=== PATIENT | male | born 1970 | race Caucasian/White ===

== ENCOUNTER 2018-08-06 00:37 | Emergency (ER) | payer BC, OTHER ==
[2018-08-06] MEDS ORDERED: SODIUM CHLORIDE 0.9% 1,000 ML IV STA (00:47)
--- NOTE | 2018-08-06 01:06 | ED ---
General Adult HPI - General Stated complaint: confusion Time Seen by Provider: 08/06/18 00:46 - History of Present Illness Initial comments: Emilio is a 47 yo male brought to the ED today via EMS after being found lying on the ground beside a parking area. EMS reports that they were dispatched for a person initially unresponsive laying next to a parking area. There arrived on scene to find the patient lying in the dirt with snoring respirations. He was given Narcan with no improvement in his mental status. Patient had snoring respirations but with significant wad noise and physical simulation would wake and was awake alert and oriented to person date and location however patient could not recall many events leading up to how he ended up where he was or why he was in the dirt soaking wet. Patient denied drug use. As soon as her stimulator he would again fall asleep and have stroke snoring respirations. Patient's only complaint was that he was cold. Asians arrived at bedside she provided further history. She expresses concern that the patient is been a closet alcoholic and possibly using drugs. She states that when he was employed a lot of money was going missing and she was concerned he was using it to buy drugs however she can never prove this. She states that he has recently lost his job yesterday she found him heavily intoxicated on alcohol and advised him that she wanted him to move out and she wanted a divorce. This evening he was at home with her cousin. Her cousin saw him around 7 PM however when he went back downstairs to check on him at 9 PM he was not home. He had apparently left the residence on a bicycle. He was found outside with no bicycle and no recall of the evening. - Related Data Allergies Allergy/AdvReac Type Severity Reaction Status Date / Time No Known Allergies Allergy Verified 08/06/18 01:15 Review of Systems ROS Statement: Those systems with pertinent positive or pertinent negative responses have been documented in the HPI. ROS Other: All systems not noted in ROS Statement are negative. General Exam - General Exam Comments Initial Comments: Physical Exam GENERAL: Patient is acutely delirious and hypothermic HENT: Normocephalic, Atraumatic. There is very dark wax or dried blood in the left ear canal, normal TMs and no nieto signs no signs of head trauma EYES: PERRL, EOMI PULMONARY: Unlabored respirations. No audible rales rhonchi or wheezing was noted. CARDIOVASCULAR: There is a regular rate and rhythm without any murmurs gallops or rubs. ABDOMEN: Soft and nontender with normal bowel sounds. SKIN: Extremities are moist and very cold to the touch : Normal external genitalia NEUROLOGIC: Sleeping with snoring respirations, wakes to loud noise or physical stimulation Patient is alert and oriented to person date and location however cannot recall events of the evening. Has repetitive questioning and repetitive statements Moving all extremities spontaneously MUSCULOSKELETAL: Normal extremities with adequate strength and full range of motion. No lower extremity swelling or edema. No calf tenderness. PSYCHIATRIC: Acutely delirious Limitations: no limitations Course Vital Signs 08/06/18 08/06/18 08/06/18 00:50 00:59 01:00 Pulse Rate 106 H 113 H Respiratory 16 34 H 33 H Rate Blood Pressure 187/99 O2 Sat by Pulse 98 97 97 Oximetry 08/06/18 08/06/18 08/06/18 01:10 02:00 02:10 Pulse Rate 90 98 95 Respiratory 17 12 13 Rate Blood Pressure 144/118 160/106 113/83 O2 Sat by Pulse 95 97 96 Oximetry 08/06/18 08/06/18 08/06/18 02:20 02:40 02:50 Pulse Rate 91 93 92 Respiratory 15 14 12 Rate Blood Pressure 114/79 104/80 105/90 O2 Sat by Pulse 97 98 98 Oximetry 08/06/18 08/06/18 08/06/18 03:10 03:20 03:40 Pulse Rate 89 86 84 Respiratory 12 12 12 Rate Blood Pressure 106/73 112/78 126/70 O2 Sat by Pulse 98 98 98 Oximetry 08/06/18 08/06/18 08/06/18 04:00 04:10 04:20 Pulse Rate 82 81 112 H Respiratory 14 7 L 24 Rate Blood Pressure 119/75 111/82 134/98 O2 Sat by Pulse 96 98 98 Oximetry 08/06/18 04:40 Pulse Rate 101 H Respiratory 14 Rate Blood Pressure 195/115 O2 Sat by Pulse 97 Oximetry EKG Findings - EKG Comments: EKG Findings:: EKG was obtained at 12:45 AM, rate is 100 rhythm is sinus tachycardia, there is significant baseline artifact secondary to patient shivering. But no obvious ST elevations depressions or evidence of ischemia infarction or arrhythmia. Medical Decision Making - Medical Decision Making The patient was seen and evaluated immediately upon arrival to the emergency department if the patient was noted to have snoring respirations and be difficult to arouse but once he was awake was awake alert oriented Physical exam with no acute findings aside from being hypothermic however given the history and the patient's lack of recall of events leading up to hospitalization a thorough trauma evaluation will be pursued Sent labs were reviewed there is mild elevation of the CPK, mild elevation of lactic acid as well as mild hyperkalemia Imaging with no acute findings Urine drug screen was positive for amphetamines and opiates Results were discussed with the patient and at bedside patient continues to deny any drug use She care was discussed with his primary care physician Dr. Milton Neil. Given the patient has been observed for 4-1/2 hours with no improvement in his mental status he does feel the patient warrants evaluation by neurology and recommends patient be transferred to a facility with neurology. Patient care was discussed with Dr. Hale Kya [facility] who accepts the ER to ER transfer for patient with possible polysubstance intoxication, acute delirium. - Lab Data Result diagrams: 08/06/18 00:51 08/06/18 00:51 Lab Results 08/06/18 08/06/18 08/06/18 Range/Units 00:51 00:51 00:51 WBC 10.5 (3.8-10.6) k/uL RBC 5.67 (4.30-5.90) m/uL Hgb 15.2 (13.0-17.5) gm/dL Hct 47.0 (39.0-53.0) % MCV 83.0 (80.0-100.0) fL MCH 26.8 (25.0-35.0) pg MCHC 32.3 (31.0-37.0) g/dL RDW 16.1 H (11.5-15.5) % Plt Count 148 L (150-450) k/uL Neutrophils % 71 % Lymphocytes % 17 % Monocytes % 6 % Eosinophils % 3 % Basophils % 1 % Neutrophils # 7.5 (1.3-7.7) k/uL Lymphocytes # 1.8 (1.0-4.8) k/uL Monocytes # 0.6 (0-1.0) k/uL Eosinophils # 0.3 (0-0.7) k/uL Basophils # 0.1 (0-0.2) k/uL Anisocytosis Slight PT (9.0-12.0) sec INR (<1.2) APTT (22.0-30.0) sec Sodium 143 (137-145) mmol/L Potassium 5.4 H (3.5-5.1) mmol/L Chloride 109 H (98-107) mmol/L Carbon Dioxide 22 (22-30) mmol/L Anion Gap 12 mmol/L BUN 21 H (9-20) mg/dL Creatinine 0.91 (0.66-1.25) mg/dL Est GFR (CKD-EPI)AfAm >90 (>60 ml/min/1.73 sqM) Est GFR (CKD-EPI)NonAf >90 (>60 ml/min/1.73 sqM) Glucose 124 H (74-99) mg/dL Lactic Ac Sepsis Rflx Plasma Lactic Acid Ricki 2.3 H* (0.7-2.0) mmol/L Calcium 10.0 (8.4-10.2) mg/dL Total Bilirubin 0.9 (0.2-1.3) mg/dL AST 36 (17-59) U/L ALT 31 (21-72) U/L Alkaline Phosphatase 80 (38-126) U/L Creatine Kinase 281 H (55-170) U/L Troponin I (0.000-0.034) ng/mL Total Protein 8.3 H (6.3-8.2) g/dL Albumin 4.8 (3.5-5.0) g/dL Urine Color Urine Appearance (Clear) Urine pH (5.0-8.0) Ur Specific [place] (1.001-1.035) Urine Protein (Negative) Urine Glucose (UA) (Negative) Urine Ketones (Negative) Urine Blood (Negative) Urine Nitrite (Negative) Urine Bilirubin (Negative) Urine Urobilinogen (<2.0) mg/dL Ur Leukocyte Esterase (Negative) Urine RBC (0-5) /hpf Urine WBC (0-5) /hpf Ur Squamous Epith Cells (0-4) /hpf Amorphous Sediment (None) /hpf Urine Bacteria (None) /hpf Hyaline Casts (0-2) /lpf Granular Casts (0) /lpf Urine Mucus (None) /hpf Urine Opiates Screen (NotDetected) Ur Oxycodone Screen (NotDetected) Urine Methadone Screen (NotDetected) Ur Propoxyphene Screen (NotDetected) Ur Barbiturates Screen (NotDetected) U Tricyclic Antidepress (NotDetected) Ur Phencyclidine Scrn (NotDetected) Ur Amphetamines Screen (NotDetected) U Methamphetamines Scrn (NotDetected) U Benzodiazepines Scrn (NotDetected) Urine Cocaine Screen (NotDetected) U Marijuana (THC) Screen (NotDetected) Serum Alcohol <10 mg/dL Blood Type Blood Type Confirm Blood Type Recheck Antibody Screen Spec Expiration Date 08/06/18 08/06/18 08/06/18 Range/Units 00:51 00:51 00:51 WBC (3.8-10.6) k/uL RBC (4.30-5.90) m/uL Hgb (13.0-17.5) gm/dL Hct (39.0-53.0) % MCV (80.0-100.0) fL MCH (25.0-35.0) pg MCHC (31.0-37.0) g/dL RDW (11.5-15.5) % Plt Count (150-450) k/uL Neutrophils % % Lymphocytes % % Monocytes % % Eosinophils % % Basophils % % Neutrophils # (1.3-7.7) k/uL Lymphocytes # (1.0-4.8) k/uL Monocytes # (0-1.0) k/uL Eosinophils # (0-0.7) k/uL Basophils # (0-0.2) k/uL Anisocytosis PT 10.9 (9.0-12.0) sec INR 1.0 (<1.2) APTT 25.5 (22.0-30.0) sec Sodium (137-145) mmol/L Potassium (3.5-5.1) mmol/L Chloride (98-107) mmol/L Carbon Dioxide (22-30) mmol/L Anion Gap mmol/L BUN (9-20) mg/dL Creatinine (0.66-1.25) mg/dL Est GFR (CKD-EPI)AfAm (>60 ml/min/1.73 sqM) Est GFR (CKD-EPI)NonAf (>60 ml/min/1.73 sqM) Glucose (74-99) mg/dL Lactic Ac Sepsis Rflx Plasma Lactic Acid Ricki (0.7-2.0) mmol/L Calcium (8.4-10.2) mg/dL Total Bilirubin (0.2-1.3) mg/dL AST (17-59) U/L ALT (21-72) U/L Alkaline Phosphatase (38-126) U/L Creatine Kinase (55-170) U/L Troponin I <0.012 (0.000-0.034) ng/mL Total Protein (6.3-8.2) g/dL Albumin (3.5-5.0) g/dL Urine Color Urine Appearance (Clear) Urine pH (5.0-8.0) Ur Specific [place] (1.001-1.035) Urine Protein (Negative) Urine Glucose (UA) (Negative) Urine Ketones (Negative) Urine Blood (Negative) Urine Nitrite (Negative) Urine Bilirubin (Negative) Urine Urobilinogen (<2.0) mg/dL Ur Leukocyte Esterase (Negative) Urine RBC (0-5) /hpf Urine WBC (0-5) /hpf Ur Squamous Epith Cells (0-4) /hpf Amorphous Sediment (None) /hpf Urine Bacteria (None) /hpf Hyaline Casts (0-2) /lpf Granular Casts (0) /lpf Urine Mucus (None) /hpf Urine Opiates Screen (NotDetected) Ur Oxycodone Screen (NotDetected) Urine Methadone Screen (NotDetected) Ur Propoxyphene Screen (NotDetected) Ur Barbiturates Screen (NotDetected) U Tricyclic Antidepress (NotDetected) Ur Phencyclidine Scrn (NotDetected) Ur Amphetamines Screen (NotDetected) U Methamphetamines Scrn (NotDetected) U Benzodiazepines Scrn (NotDetected) Urine Cocaine Screen (NotDetected) U Marijuana (THC) Screen (NotDetected) Serum Alcohol mg/dL Blood Type Blood Type Confirm A Positive Blood Type Recheck Antibody Screen Spec Expiration Date 08/06/18 08/06/18 08/06/18 Range/Units 01:31 01:52 03:09 WBC (3.8-10.6) k/uL RBC (4.30-5.90) m/uL Hgb (13.0-17.5) gm/dL Hct (39.0-53.0) % MCV (80.0-100.0) fL MCH (25.0-35.0) pg MCHC (31.0-37.0) g/dL RDW (11.5-15.5) % Plt Count (150-450) k/uL Neutrophils % % Lymphocytes % % Monocytes % % Eosinophils % % Basophils % % Neutrophils # (1.3-7.7) k/uL Lymphocytes # (1.0-4.8) k/uL Monocytes # (0-1.0) k/uL Eosinophils # (0-0.7) k/uL Basophils # (0-0.2) k/uL Anisocytosis PT (9.0-12.0) sec INR (<1.2) APTT (22.0-30.0) sec Sodium (137-145) mmol/L Potassium (3.5-5.1) mmol/L Chloride (98-107) mmol/L Carbon Dioxide (22-30) mmol/L Anion Gap mmol/L BUN (9-20) mg/dL Creatinine (0.66-1.25) mg/dL Est GFR (CKD-EPI)AfAm (>60 ml/min/1.73 sqM) Est GFR (CKD-EPI)NonAf (>60 ml/min/1.73 sqM) Glucose (74-99) mg/dL Lactic Ac Sepsis Rflx Y Plasma Lactic Acid Ricki (0.7-2.0) mmol/L Calcium (8.4-10.2) mg/dL Total Bilirubin (0.2-1.3) mg/dL AST (17-59) U/L ALT (21-72) U/L Alkaline Phosphatase (38-126) U/L Creatine Kinase (55-170) U/L Troponin I (0.000-0.034) ng/mL Total Protein (6.3-8.2) g/dL Albumin (3.5-5.0) g/dL Urine Color Yellow Urine Appearance Clear (Clear) Urine pH 5.5 (5.0-8.0) Ur Specific [place] 1.041 H (1.001-1.035) Urine Protein 2+ H (Negative) Urine Glucose (UA) Negative (Negative) Urine Ketones Negative (Negative) Urine Blood Trace H (Negative) Urine Nitrite Negative (Negative) Urine Bilirubin Negative (Negative) Urine Urobilinogen <2.0 (<2.0) mg/dL Ur Leukocyte Esterase Negative (Negative) Urine RBC 2 (0-5) /hpf Urine WBC 3 (0-5) /hpf Ur Squamous Epith Cells <1 (0-4) /hpf Amorphous Sediment Rare H (None) /hpf Urine Bacteria Rare H (None) /hpf Hyaline Casts 34 H (0-2) /lpf Granular Casts 4 (0) /lpf Urine Mucus Occasional H (None) /hpf Urine Opiates Screen Detected H (NotDetected) Ur Oxycodone Screen Not Detected (NotDetected) Urine Methadone Screen Not Detected (NotDetected) Ur Propoxyphene Screen Not Detected (NotDetected) Ur Barbiturates Screen Not Detected (NotDetected) U Tricyclic Antidepress Not Detected (NotDetected) Ur Phencyclidine Scrn Not Detected (NotDetected) Ur Amphetamines Screen Not Detected (NotDetected) U Methamphetamines Scrn Detected H (NotDetected) U Benzodiazepines Scrn Not Detected (NotDetected) Urine Cocaine Screen Not Detected (NotDetected) U Marijuana (THC) Screen Not Detected (NotDetected) Serum Alcohol mg/dL Blood Type A Positive Blood Type Confirm Blood Type Recheck CABO Indicated Antibody Screen NEGATIVE Spec Expiration Date 08/09/2018 - 235108/06/18 Range/Units 05:21 WBC (3.8-10.6) k/uL RBC (4.30-5.90) m/uL Hgb (13.0-17.5) gm/dL Hct (39.0-53.0) % MCV (80.0-100.0) fL MCH (25.0-35.0) pg MCHC (31.0-37.0) g/dL RDW (11.5-15.5) % Plt Count (150-450) k/uL Neutrophils % % Lymphocytes % % Monocytes % % Eosinophils % % Basophils % % Neutrophils # (1.3-7.7) k/uL Lymphocytes # (1.0-4.8) k/uL Monocytes # (0-1.0) k/uL Eosinophils # (0-0.7) k/uL Basophils # (0-0.2) k/uL Anisocytosis PT (9.0-12.0) sec INR (<1.2) APTT (22.0-30.0) sec Sodium (137-145) mmol/L Potassium (3.5-5.1) mmol/L Chloride (98-107) mmol/L Carbon Dioxide (22-30) mmol/L Anion Gap mmol/L BUN (9-20) mg/dL Creatinine (0.66-1.25) mg/dL Est GFR (CKD-EPI)AfAm (>60 ml/min/1.73 sqM) Est GFR (CKD-EPI)NonAf (>60 ml/min/1.73 sqM) Glucose (74-99) mg/dL Lactic Ac Sepsis Rflx Plasma Lactic Acid Ricki 0.9 (0.7-2.0) mmol/L Calcium (8.4-10.2) mg/dL Total Bilirubin (0.2-1.3) mg/dL AST (17-59) U/L ALT (21-72) U/L Alkaline Phosphatase (38-126) U/L Creatine Kinase (55-170) U/L Troponin I (0.000-0.034) ng/mL Total Protein (6.3-8.2) g/dL Albumin (3.5-5.0) g/dL Urine Color Urine Appearance (Clear) Urine pH (5.0-8.0) Ur Specific [place] (1.001-1.035) Urine Protein (Negative) Urine Glucose (UA) (Negative) Urine Ketones (Negative) Urine Blood (Negative) Urine Nitrite (Negative) Urine Bilirubin (Negative) Urine Urobilinogen (<2.0) mg/dL Ur Leukocyte Esterase (Negative) Urine RBC (0-5) /hpf Urine WBC (0-5) /hpf Ur Squamous Epith Cells (0-4) /hpf Amorphous Sediment (None) /hpf Urine Bacteria (None) /hpf Hyaline Casts (0-2) /lpf Granular Casts (0) /lpf Urine Mucus (None) /hpf Urine Opiates Screen (NotDetected) Ur Oxycodone Screen (NotDetected) Urine Methadone Screen (NotDetected) Ur Propoxyphene Screen (NotDetected) Ur Barbiturates Screen (NotDetected) U Tricyclic Antidepress (NotDetected) Ur Phencyclidine Scrn (NotDetected) Ur Amphetamines Screen (NotDetected) U Methamphetamines Scrn (NotDetected) U Benzodiazepines Scrn (NotDetected) Urine Cocaine Screen (NotDetected) U Marijuana (THC) Screen (NotDetected) Serum Alcohol mg/dL Blood Type Blood Type Confirm Blood Type Recheck Antibody Screen Spec Expiration Date Critical Care Time Critical Care Time: Yes Total Critical Care Time: 30 Disposition Clinical Impression: Delirium, Elevated CPK, Methamphetamine use Disposition: OTHER INSTITUTION NOT DEFINED Condition: Serious Referrals: Milton Arias MD [Primary Care Provider] - 1-2 days - Out of Hospital Transfer - Req. Specs Out of Hospital Transfer - Requested Specifics: Other Emergency Center ([facility]
[2018-08-06 01:07] LABS: Anisocytosis Slight; Basophils # (A) 0.1 k/uL (0-0.2); Basophils % (A) 1 %; Eosinophils # (A) 0.3 k/uL (0-0.7); Eosinophils % (A) 3 %; HGB 15.2 gm/dL (13.0-17.5); Lymphocytes # (A) 1.8 k/uL (1.0-4.8); Lymphocytes % (A) 17 %; MCH 26.8 pg (25.0-35.0); MCHC 32.3 g/dL (31.0-37.0); Mean Platelet Volume 9.5; Monocytes # (A) 0.6 k/uL (0-1.0); Monocytes % (A) 6 %; Neutrophils # (A) 7.5 k/uL (1.3-7.7); Neutrophils % (A) 71 %; Platelet Count 148 k/uL (150-450); RBC 5.67 m/uL (4.30-5.90); RDW 16.1 % (11.5-15.5); WBC 10.5 k/uL (3.8-10.6)
[2018-08-06 01:16] LABS: Partial Thromboplastin Time 25.5 sec (22.0-30.0); Prothrombin Time 10.9 sec (9.0-12.0)
[2018-08-06 01:19] LABS: ALT 31 U/L (21-72); AST 36 U/L (17-59); Albumin 4.8 g/dL (3.5-5.0); Alcohol <10 mg/dL; Alkaline Phosphatase 80 U/L (38-126); Anion Gap 12 mmol/L; Blood Urea Nitrogen 21 mg/dL (9-20); Carbon Dioxide 22 mmol/L (22-30); Chloride 109 mmol/L (98-107); Creatine Kinase 281 U/L (55-170); Glucose 124 mg/dL (74-99); Sodium 143 mmol/L (137-145); Total Bilirubin 0.9 mg/dL (0.2-1.3); Total Protein 8.3 g/dL (6.3-8.2)
[2018-08-06 01:30] LABS: Potassium 5.4 mmol/L (3.5-5.1)
[2018-08-06 03:44] LABS: Amphetamine Screen,Urine Not Detected (NotDetected); Barbiturate Screen,Urine Not Detected (NotDetected); Benzodiazepines Screen,Urine Not Detected (NotDetected); Cocaine Screen,Urine Not Detected (NotDetected); Methadone Screen, Urine Not Detected (NotDetected); Opiate Screen,Urine Detected (NotDetected); Oxycodone Screen, Urine Not Detected (NotDetected); Phencyclidine Screen,Urine Not Detected (NotDetected); Tricyclic Antidepressant,Urine Not Detected (NotDetected); Urn Cannabinoid Scrn Not Detected (NotDetected)
[2018-08-06 03:51] LABS: Amorphous Sediment,Urine Rare /hpf; Appearance,Urine Clear (Clear); Bacteria,Urine Rare /hpf; Bilirubin,Urine Negative (Negative); Blood,Urine Trace (Negative); Color,Urine Yellow; Glucose,Urine (UA) Negative (Negative); Granular Casts,Urine 4 /lpf (0); Hyaline Casts,Urine 34 /lpf (0-2); Ketones,Urine Negative (Negative); Leukocyte Esterase,Urine Negative (Negative); Mucus,Urine Occasional /hpf; Nitrite,Urine Negative (Negative); PH, Urine 5.5 (5.0-8.0); Protein,Urine 2+ (Negative); RBC,Urine 2 /hpf (0-5); Specific Gravity,Urine 1.041 (1.001-1.035); Squamous Epithelial Cell,Urine <1 /hpf (0-4); Urobilinogen,Urine <2.0 mg/dL (<2.0); WBC,Urine 3 /hpf (0-5)
[2018-08-06] MEDS ORDERED: SODIUM CHLORIDE 0.9% 1,000 ML IV ONE (04:28)
[2018-08-06 06:16] VITALS: BP 138/80; PULSE 87; RESP 12
[2018-08-06 06:18] VITALS: TEMP 98.3
--- NOTE | 2018-08-06 07:29 | CT ---
EXAMINATION TYPE: CT brain inder roche con DATE OF EXAM: 08/06/2018 COMPARISON: NONE HISTORY: Unresponsive trauma injury with headache and neck pain. CT DLP: 1539.50 mGycm. Automated Exposure Control for Dose Reduction was Utilized. TECHNIQUE: CT scan of the head and cervical spine are performed without contrast. FINDINGS: There is no acute intracranial hemorrhage, mass effect, or midline shift identified. The ventricles and sulci are within normal limits in size. The globes are intact and the visualized sin uses are clear. The calvarium is intact. Cervical spine is visualized in its entirety from C1 through upper thoracic levels and demonstrates s traightens alignment without evidence of acute fracture or dislocation. Prevertebral soft tissue luz ears within normal limits. The C1-C2 articulation is within normal limits on the coronal images. Ve rtebral body heights are maintained. There is [id number] disc space narrowing and spurring at C 6-C7 level with posterior spur disc complex effacing anterior thecal sac. Thyroid gland is normal in size. Please refer to same day CT CAP port for complete details on the upper lungs IMPRESSION: 1. There is no acute fracture or dislocation evident in the cervical spine. 2. No acute intracranial hemorrhage or midline shift is seen. Preliminary report for study was provided by [employer].
--- NOTE | 2018-08-06 11:48 | CT ---
EXAM: CT Chest With Intravenous Contrast CLINICAL HISTORY: [facility] TECHNIQUE: Axial computed tomography images of the chest with intravenous contrast. CTDI is 13.10 mGy and DLP is 947.5 mGy-cm. This CT exam was performed using one or more of the following dose reduction techniques: automated exposure control, adjustment of the mA and/or kV according to patient size, and/or use of iterative reconstruction technique. COMPARISON: No relevant prior studies available. FINDINGS: Lungs: Unremarkable. No mass. No consolidation. Pleural space: Unremarkable. No pneumothorax. No significant effusion. Heart: Unremarkable. No cardiomegaly. No significant pericardial effusion. Bones/joints: Unremarkable. No acute fracture. No dislocation. Soft tissues: Unremarkable. Vasculature: Unremarkable. No thoracic aortic aneurysm. Lymph nodes: Unremarkable. No enlarged lymph nodes. IMPRESSION: No acute trauma related pathology. EXAM: CT Abdomen and Pelvis With Intravenous Contrast CLINICAL HISTORY: [facility] [place] [facility] TECHNIQUE: Axial computed tomography images of the abdomen and pelvis with intravenous contrast. CTDI is 13.10 mGy and DLP is 947.5 mGy-cm. This CT exam was performed using one or more of the following dose reduction techniques: automated exposure control, adjustment of the mA and/or kV according to patient size, and/or use of iterative reconstruction technique. COMPARISON: No relevant prior studies available. FINDINGS: Lung bases: Unremarkable. No mass. No consolidation. ABDOMEN: Liver: Unremarkable. No mass. Gallbladder and bile ducts: Unremarkable. No calcified stones. No ductal dilation. Pancreas: Unremarkable. No mass. No ductal dilation. Spleen: Splenomegaly. Adrenals: Unremarkable. No mass. Kidneys and ureters: Unremarkable. No solid mass. No hydronephrosis. Stomach and bowel: Unremarkable. No obstruction. No mucosal thickening. PELVIS: Appendix: No findings to suggest acute appendicitis. Bladder: Unremarkable. No mass. Reproductive: Unremarkable as visualized. ABDOMEN and PELVIS: Intraperitoneal space: Unremarkable. No free air. No significant fluid collection. Bones/joints: No acute fracture. No dislocation. Soft tissues: Unremarkable. Vasculature: Unremarkable. No abdominal aortic aneurysm. Lymph nodes: Unremarkable. No enlarged lymph nodes. IMPRESSION: No evidence of solid organ or hollow viscus injury. No other acute or inflammatory disease. No acute or healing fracture or malalignment.
--- NOTE | 2018-08-06 11:49 | XR ---
EXAM: XR Chest, 1 View CLINICAL HISTORY: [place] TECHNIQUE: Frontal view of the chest. COMPARISON: No relevant prior studies available. FINDINGS: Lungs: Unremarkable. No consolidation. Pleural space: Unremarkable. No pneumothorax. Heart: Unremarkable. No cardiomegaly. Mediastinum: Unremarkable. Bones/joints: Unremarkable. IMPRESSION: Normal chest x-ray.
--- NOTE | 2018-08-06 11:49 | XR ---
EXAM: XR Pelvis, 1 or 2 Views CLINICAL HISTORY: [place] TECHNIQUE: Frontal view of the pelvis. COMPARISON: No relevant prior studies available. FINDINGS: Bones/joints: Unremarkable. No acute fracture. No dislocation. Soft tissues: Unremarkable. IMPRESSION: Normal pelvis x-ray.
== END 2018-08-06 06:40 | disposition other institution (70) ==
LOC: EC 00:37
DX: R41.0 Disorientation, unspecified (principal); F15.90 Other stimulant use, unspecified, uncomplicated; E87.5 Hyperkalemia; R79.89 Other specified abnormal findings of blood chemistry; R74.8 Abnormal levels of other serum enzymes
CPT/HCPCS: 99291 ×2; 96360; 96361; 36415; 93005; 86900; 86901; 80053; 82550; 83605; 84484; 85025; 85610; 85730; 86850; 81001; 80306; 80320; 72170; 71045; 72125; 70450; 71260; 74177; Q9967

== ENCOUNTER 2022-04-11 11:20 | Inpatient (IN) | payer OTHER ==
[2022-04-11] MEDS ORDERED: LACTATED RINGERS 250 ML IV ONE (15:10)
[2022-04-11] MEDS ORDERED: PROPOFOL 10 MG/ML 20 ML VIAL IV ONE (15:16)
[2022-04-11] MEDS ORDERED: LIDOCAINE 2% INJ 20 MG/ML (2 ML VIAL) ONE (15:16)
[2022-04-11] MEDS ORDERED: LORazepam 0.5 MG TAB PO PRN (17:56)
[2022-04-11] MEDS ORDERED: METOCLOPRAMIDE 10 MG TAB PO PRN (17:56)
[2022-04-11] MEDS ORDERED: ACETAMINOPHEN TAB 325 MG TAB PO PRN (17:58)
[2022-04-11] MEDS ORDERED: ONDANSETRON 4 MG/2 ML VIAL IVP PRN (17:58)
[2022-04-11] MEDS ORDERED: IPRATROPIUM-ALBUTEROL 3 ML NEB INHALATION PRN (18:25)
--- NOTE | 2022-04-11 19:30 | P.PCN ---
Date of Procedure: 04/11/22 Operative Findings: Transesophageal echocardiogram Performing physician Mustapha Olivas Indication Rule out intracardiac thrombus before cardioversion Complications None Level of sedation The procedure was performed under general anesthesia Procedure description After obtaining informed consent the patient was brought to the recovery. The pulse oximetry and heart rate monitors were attached to the patient. Subsequently the patient was turned into left lateral position. The throat was sprayed using lidocaine. Subsequently the patient was sedated using propofol with BOARDING SPECIALIST in the room. The transesophageal echocardiogram was advanced to the mid esophageal where 2D echocardiogram images as well as color Doppler and pulse-wave Doppler were obtained from multiple angles. The procedure was completed without any complication Findings The left ventricular dimension appeared to be within normal limits. Left ventricular systolic function appeared to be mildly inverted with EF around 40- 45%. The right ventricle appeared to be mildly dilated. The left atrium and right atrium are mildly dilated. The aortic valve appeared to be trileaflet valve with no stenosis or regurgitation. The mitral valve seems to be mildly thickened with moderate MR. Moderate tricuspid regurgitation was seen. No evidence of pericardial effusion. The interatrial septum appeared to be intact with no evidence of shunt noted. The left atrial appendage appeared to be free from any thrombus Conclusion 1. Impaired LV function with EF between 40-45% 2. Normal left atrial appendage with no thrombus 3. Intact interatrial septum with no shunt noted 4. Moderate mitral regurgitation 5. Moderate tricuspid regurgitation 6. No evidence of pericardial effusion
--- NOTE | 2022-04-11 19:32 | P.PCN ---
Date of Procedure: 04/11/22 Operative Findings: Cardioversion report Performing physician Mustapha Donovan Indication Atrial flutter with RVR refractory to medical treatment Complications None Level of sedation The procedure was performed using propofol with NUT GRINDER in the room Procedure description After transesophageal echocardiogram was performed and intracardiac thrombus was ruled out the patient cardioverted from atrial flutter to normal sinus mechanism using 200 J at first attempt Conclusion Successful cardioversion of atrial flutter to normal sinus mechanism using 200 J at first attempt
[2022-04-11] MEDS ORDERED: IPRATROPIUM-ALBUTEROL 3 ML NEB INHALATION SCH (20:00)
[2022-04-11] MEDS ORDERED: IPRATROPIUM 0.5 MG/2.5 ML NEBU INHALATION SCH (20:00)
[2022-04-11] MEDS ORDERED: ALBUTEROL NEBULIZED 2.5 MG/3 ML INHALATION SCH (20:00)
[2022-04-11] MEDS: PREGABALIN 100 MG CAP PO SCH (21:54)
[2022-04-11] MEDS: NICOTINE 21MG/24HR PATCH TRANSDERM SCH (21:54)
[2022-04-11] MEDS: METOPROLOL TARTRATE 50 MG TAB PO SCH (21:54)
[2022-04-11] MEDS: FAMOTIDINE 20 MG TAB PO SCH (21:55)
[2022-04-11] MEDS: MELATONIN 3 MG TABLET PO SCH (21:55)
[2022-04-11] MEDS: BUDESONIDE 1 MG/2 ML NEBU INHALATION SCH (22:23)
[2022-04-11] MEDS: IPRATROPIUM-ALBUTEROL 3 ML NEB INHALATION SCH (22:23)
[2022-04-12 04:58] LABS: Anisocytosis Slight; Basophils # (A) 0.1 k/uL (0-0.2); Basophils % (A) 0 %; Eosinophils # (A) 0.1 k/uL (0-0.7); Eosinophils % (A) 1 %; HCT 43.1 % (39.0-53.0); HGB 12.7 gm/dL (13.0-17.5); Hypochromasia Marked; Lymphocytes % (A) 7 %; MCH 23.7 pg (25.0-35.0); MCHC 29.5 g/dL (31.0-37.0); MCV 80.6 fL (80.0-100.0); Mean Platelet Volume 7.3; Microcytosis Slight; Monocytes # (A) 0.9 k/uL (0-1.0); Monocytes % (A) 7 %; Neutrophils # (A) 11.3 k/uL (1.3-7.7); Neutrophils % (A) 84 %; Platelet Count 111 k/uL (150-450); RBC 5.35 m/uL (4.30-5.90); RDW 17.8 % (11.5-15.5); WBC 13.4 k/uL (3.8-10.6)
[2022-04-12 05:06] LABS: African American GFR (CKD) >90 (>60 ml/min/1.73 sqM); Blood Urea Nitrogen 38 mg/dL (9-20); Calcium 8.1 mg/dL (8.4-10.2); Chloride 85 mmol/L (98-107); Glucose 101 mg/dL (74-99); Non-African American GFR(CKD) 84 (>60 ml/min/1.73 sqM); Potassium 3.6 mmol/L (3.5-5.1); Sodium 132 mmol/L (137-145)
[2022-04-12 05:13] LABS: Anion Gap 4 mmol/L
[2022-04-12 05:36] LABS: Carbon Dioxide 43 mmol/L (22-30)
[2022-04-12] MEDS: PREGABALIN 100 MG CAP PO SCH ×2 (08:39→20:25)
[2022-04-12] MEDS: FAMOTIDINE 20 MG TAB PO SCH ×2 (08:39→20:26)
[2022-04-12] MEDS: NICOTINE 21MG/24HR PATCH TRANSDERM SCH (08:39)
[2022-04-12] MEDS: METOPROLOL TARTRATE 50 MG TAB PO SCH ×3 (08:39→20:26)
[2022-04-12] MEDS: predniSONE 10 MG TAB PO SCH (08:39)
[2022-04-12] MEDS: IPRATROPIUM-ALBUTEROL 3 ML NEB INHALATION SCH ×4 (09:51→21:08)
[2022-04-12] MEDS: BUDESONIDE 1 MG/2 ML NEBU INHALATION SCH ×2 (09:51→21:08)
[2022-04-12] MEDS ORDERED: hydrOXYzine HCL 25 MG TAB PO PRN (10:35)
[2022-04-12] MEDS ORDERED: hydrOXYzine HCL 25 MG TAB PO ONE (10:50)
--- NOTE | 2022-04-12 10:55 | P.HPIM ---
History of Present Illness this is a pleasant 51 years old male who was transferred from [facility] to her hospital for cardioversion. He is a known history of COPD and amphetamine abuse. Presented to the hospital because of shortness of breath and dyspnea. Patient has been followed closely by pulmonary and cardiology service there. Also fringing machine operator evaluated the patient. Patient was on A. fib and RVR refractory to medical treatment including Cardizem drip and therefore he was transferred to our facility and he underwent RICKY showing no intracardiac thrombosis followed by successful cardioversion to sinus rhythm. Today is postoperative day #1 He lying in bed comfortable with no significant chest pain, he is somewhat tachypneic. Patient was found to have COPD and with expiratory wheezing with some hypercapnia. He was placed on BiPAP machine, it is at bedside but patient does not like it. CT angiogram of the chest was negative for pulmonary embolism but showed bilateral pleural effusions and abdominal ascites. He was started on IV Lasix and Diamox. Vitas looks stable EKG: Normal sinus rhythm at 64 Patient was on Eliquis at [facility] Review of Systems Review of systems CONSTITUTIONAL: No fever, no malaise, no fatigue. HEENT: No recent visual problems or hearing problems. Denied any sore throat. CARDIOVASCULAR: No orthopnea, PND, no palpitations, no syncope. PULMONARY: No chest wall tenderness, no hemoptysis. GASTROINTESTINAL: No diarrhea, no nausea, no vomiting, no abdominal pain. Normoactive bowel sounds. NEUROLOGICAL: No headaches, no weakness, no numbness. HEMATOLOGICAL: Denies any bleeding or petechiae. GENITOURINARY: Denies any burning micturition, frequency, or urgency. MUSCULOSKELETAL/RHEUMATOLOGICAL: Denies any joint pain, swelling, or any muscle pain. ENDOCRINE: Denies any polyuria or polydipsia. Past Medical History Past Medical History: Atrial Fibrillation, COPD, Hypertension, Pneumonia History of Any Multi-Drug Resistant Organisms: None Reported Additional Past Surgical History / Comment(s): RICKY 04-11-2022 Smoking Status: Current every day smoker Past Alcohol Use History: None Reported Past Drug Use History: None Reported - Past Family History Mother Family Medical History: Dementia Father Family Medical History: Cancer Medications and Allergies Home Medications Medication Instructions Recorded Confirmed Type Albuterol Nebulized [Ventolin 2.5 mg INHALATION RT-Q6H 04/11/22 04/11/22 History Nebulized] Budesonide [Pulmicort] 1 mg INHALATION RT-BID 04/11/22 04/11/22 History Famotidine [Pepcid] 20 mg PO BID 04/11/22 04/11/22 History Ipratropium Nebulized [Atrovent 0.5 mg INHALATION RT-Q6H 04/11/22 04/11/22 History Nebulized 0.2 MG/ML] Ipratropium-Albuterol Nebulize 3 ml INHALATION RT-Q6H 04/11/22 04/11/22 History [Duoneb 0.5 mg-3 mg/3 ml Soln] LORazepam [Ativan] 0.5 mg PO Q6HR PRN 04/11/22 04/11/22 History Melatonin 6 mg PO HS 04/11/22 04/11/22 History Metoclopramide [Reglan] 10 mg PO Q6H PRN 04/11/22 04/11/22 History Metoprolol Tartrate [Lopressor] 100 mg PO TID 04/11/22 04/11/22 History Nicotine 21Mg/24Hr Patch [Habitrol] 1 patch TRANSDERM DAILY 04/11/22 04/11/22 Hi story Pregabalin [Lyrica] 100 mg PO BID 04/11/22 04/11/22 History acetaZOLAMIDE [Diamox] 250 mg PO BID 04/11/22 04/11/22 History predniSONE [Deltasone] 30 mg PO DAILY 04/11/22 04/11/22 History Allergies Allergy/AdvReac Type Severity Reaction Status Date / Time No Known Allergies Allergy Verified 08/06/18 01:15 Physical Exam Vitals: Vital Signs Temp Pulse Pulse Resp BP Pulse Ox FiO2 04/12/22 10:04 84 04/12/22 09:55 98 04/12/22 09:52 82 04/12/22 08:41 97 F L 89 18 106/69 98 04/12/22 08:00 18 04/12/22 04:00 97.4 F L 79 14 108/71 96 40 04/12/22 03:44 40 04/12/22 01:13 40 04/12/22 00:00 97.9 F 86 16 99/63 96 04/11/22 20:00 97.9 F 86 16 112/68 95 04/11/22 17:18 74 16 101/63 94 L 04/11/22 16:23 73 16 120/81 98 04/11/22 16:10 75 18 115/75 98 04/11/22 16:05 67 18 98/59 95 04/11/22 15:51 64 18 88/59 95 04/11/22 15:04 113 H 18 123/89 100 04/11/22 14:37 100 20 97/73 97 04/11/22 13:30 50 04/11/22 13:29 50 04/11/22 13:20 98.8 F 110 H 20 89/63 97 04/11/22 13:00 98 Intake and Output 04/11/22 04/12/22 04/12/22 22:59 06:59 14:59 Intake Total 118 Output Total 600 Balance 118 -600 Intake: Oral 118 Output: Urine 600 Other: Voiding Method Urinal Urinal Urinal # Voids 2 # Bowel Movements 1 Weight 122 kg 120 kg -GENERAL: The patient is alert and oriented x3, not in any acute distress. Obese HEENT: Pupils are round and equally reacting to light. EOMI. No scleral icterus. No conjunctival pallor. Normocephalic, atraumatic. No pharyngeal erythema. No thyromegaly. CARDIOVASCULAR: S1 and S2 present. No murmurs, rubs, or gallops. -PULMONARY: Chest is clear to auscultation, no wheezing or crackles. Scattered wheezing ABDOMEN: Soft, nontender, nondistended, normoactive bowel sounds. No palpable organomegaly. MUSCULOSKELETAL: No joint swelling or deformity. EXTREMITIES: No cyanosis, clubbing, or pedal edema. NEUROLOGICAL: Gross neurological examination did not reveal any focal deficits. SKIN: No rashes. no petechiae. Results CBC & Chem 7: 04/12/22 04:29 04/12/22 04:29 Labs: Abnormal Lab Results - Last 24 Hours (Table) 04/12/22 04/12/22 Range/Units 04:29 04:29 WBC 13.4 H (3.8-10.6) k/uL Hgb 12.7 L (13.0-17.5) gm/dL MCH 23.7 L (25.0-35.0) pg MCHC 29.5 L (31.0-37.0) g/dL RDW 17.8 H (11.5-15.5) % Plt Count 111 L (150-450) k/uL Neutrophils # 11.3 H (1.3-7.7) k/uL Sodium 132 L (137-145) mmol/L Chloride 85 L (98-107) mmol/L Carbon Dioxide 43 H* (22-30) mmol/L BUN 38 H (9-20) mg/dL Glucose 101 H (74-99) mg/dL Calcium 8.1 L (8.4-10.2) mg/dL Thrombosis Risk Factor Assmnt - Choose All That Apply Each Factor Represents 1 point: Age 41-60 years, Heart failure (<1month), Swollen legs (current) Thrombosis Risk Factor Assessment Total Risk Factor Score: 3 Thrombosis Risk Factor Assessment Level: Moderate Risk Assessment and Plan Assessment: Acute CHF exacerbation with systolic dysfunction with ejection fraction 40-45% Acute refractory atrial fibrillation's with RVR, status post cardioversion Acute hypoxemic hypercapnic respiratory failure Hypervolemic hyponatremia Moderate MR and TR Mild COPD exacerbation Hypertension Amphetamine abuse Plan: Continue with metoprolol 100 mg No anticoagulation Residential Program Worker on the case Patient was on Eliquis at [facility], we'll defer to cardiology went to start anticoagulation continue with prednisone and oxygen. Continue with bronchodilator Pulmonary consult Labs and medication were reviewed.. Continue same treatment. Continue with symptomatic treatment. Resume home medication. Monitor labs and vitals. DVT and GI prophylaxis. Further recommendations as per clinical course of the patient DVT prophylaxis: Defer to cardiology team, was on eliquis GI Prophylaxis: Pepcid PT/OT: Pending Prognosis is guarded discussed with bed side nurse
--- NOTE | 2022-04-12 11:58 | P.CNPUL ---
History of Present Illness Consult date: 04/12/22 Reason for consult: dyspnea, hypoxemia History of present illness: This is a 51-year-old male patient of the transferred from [facility] to be treated for atrial flutter refractory to treatment. The patient underwent cardioversion by cardiology. The patient was admitted to [facility] on 04/02/2022. The patient came in there for worsening shortness of breath and he is known to have history of COPD, substance abuse and hypertension. The patient had a urine drug screen was positive for amphetamines and the patient apparently buys prescription amphetamine on the streets and use them regularly as he states that those medication helped him with the breathing. Initially, the patient was placed on a BiPAP as the patient had an acute hypoxic/hypercapnic respiratory failure. His workup showed a elevated proBNP level, echocardiogram showed left ventricular dysfunction with an ejection fraction of 40-45% and mild aortic regurgitation and the right ventricle systolic pressure of 32 mmHg. The patient's blood work also showed a component of an acute kidney injury. His creatinine was elevated. His LFTs were elevated. He had a CAT scan of the abdomen and pelvis that showed some mild abdominal ascites and pleural effusions. No biliary ductal dilatation the gallbladder was normal. Computed tomography scan of the chest was done in the form of an angiogram and it showed no evidence of any pulmonary embolism. She'll benefit pleural effusion and ascites. The patient is a former drinker any projected approximately 11 years ago. He is known to have history of alcohol abuse in addition to substance abuse/narcotic addiction. During the hospitalization of [facility], the patient was seen by various consultants including cardiology. The patient was found to be persistent atrial flutter and for that reason the patient got transferred to our hospital for further evaluation and treatment. Currently is on oxygen and he is on 6 L nasal cannula with a pulse ox of 98%. He is hemodynamically stable. Most recent blood work showing a white cell count 13.4 with a hemoglobin of 12.7 and a platelet count of 111. BUN is currently at 38 with a creatinine of 1.02 and a sodium level is at 132. Potassium levels at 3.6. A repeat chest x-ray was done and showed atelectatic changes lung base bilaterally. Some subpulmonic effusion on the right lung and the right hemidiaphragm is slightly elevated. No evidence of any airspace disease of pulmonary infiltrates noted. The patient is cur rently on DuoNeb about treatments [id number] on Pulmicort Respules, nicotine patch, prednisone burst taper currently on 30 mg as part of the burst taper. Note that a RICKY was done prior to cardioversion the patient was found to have no evidence of any intracardiac thrombus. There was moderate MR, moderate TR impaired LV function and EF of around 40-45%. He is a chronic THE PATIENT IS CURRENTLY SMOKING HALF TO 1 PACK OF CIGARETTES A DAY. IS A CHRONIC SMOKER. HE CONTINUES TO HAVE SOME MILD EDEMA LOWER EXTREMITIES BILATERALLY. THE PATIENT HAS NOT BEEN DIAGNOSED HAVING OBSTRUCTIVE SLEEP APNEA. ALTHOUGH THE PATIENT HAS THE FEATURES OTHERWISE SAY. HIS BMI 39.1. Review of Systems Constitutional: Reports daytime sleepiness, Reports fatigue, Reports lethargy, Reports weight gain Eyes: denies as per HPI, denies blurred vision, denies bulging eye, denies decreased vision, denies diplopia, denies discharge, denies dry eye, denies irritation, denies itching, denies pain, denies photophobia, denies loss of peripheral vision, denies loss of vision, denies tunnel vision/blind spots Ears: deny: decreased hearing, ear discharge, earache, tinnitus Ears, nose, mouth and throat: Reports as per HPI Breasts: absent: as per HPI, gynecomastia Cardiovascular: Reports decreased exercise tolerance, Reports dyspnea on exertion Respiratory: Reports cough, Reports dyspnea, Reports sleep apnea Gastrointestinal: Reports as per HPI Genitourinary: Reports as per HPI Musculoskeletal: Reports as per HPI Musculoskeletal: bilateral: ankle swelling, absent: ankle pain, ankle stiffness Integumentary: Reports as per HPI Neurological: Reports as per HPI Psychiatric: Reports as per HPI Endocrine: Reports as per HPI Hematologic/Lymphatic: Reports as per HPI Allergic/Immunologic: Reports as per HPI Past Medical History Past Medical History: Atrial Fibrillation, COPD, Hypertension History of Any Multi-Drug Resistant Organisms: None Reported Additional Past Surgical History / Comment(s): RICKY 04-11-2022 Smoking Status: Current every day smoker Past Alcohol Use History: None Reported Past Drug Use History: None Reported - Past Family History Mother Family Medical History: Dementia Father Family Medical History: Cancer Medications and Allergies Home Medications Medication Instructions Recorded Confirmed Type Albuterol Nebulized [Ventolin 2.5 mg INHALATION RT-Q6H 04/11/22 04/11/22 History Nebulized] Budesonide [Pulmicort] 1 mg INHALATION RT-BID 04/11/22 04/11/22 History Famotidine [Pepcid] 20 mg PO BID 04/11/22 04/11/22 History Ipratropium Nebulized [Atrovent 0.5 mg INHALATION RT-Q6H 04/11/22 04/11/22 History Nebulized 0.2 MG/ML] Ipratropium-Albuterol Nebulize 3 ml INHALATION RT-Q6H 04/11/22 04/11/22 History [Duoneb 0.5 mg-3 mg/3 ml Soln] LORazepam [Ativan] 0.5 mg PO Q6HR PRN 04/11/22 04/11/22 History Melatonin 6 mg PO HS 04/11/22 04/11/22 History Metoclopramide [Reglan] 10 mg PO Q6H PRN 04/11/22 04/11/22 History Metoprolol Tartrate [Lopressor] 100 mg PO TID 04/11/22 04/11/22 History Nicotine 21Mg/24Hr Patch [Habitrol] 1 patch TRANSDERM DAILY 04/11/22 04/11/22 History Pregabalin [Lyrica] 100 mg PO BID 04/11/22 04/11/22 History acetaZOLAMIDE [Diamox] 250 mg PO BID 04/11/22 04/11/22 History predniSONE [Deltasone] 30 mg PO DAILY 04/11/22 04/11/22 History Allergies Allergy/AdvReac Type Severity Reaction Status Date / Time No Known Allergies Allergy Verified 08/06/18 01:15 Physical Exam Vitals: Vital Signs Temp Pulse Pulse Resp BP Pulse Ox FiO2 04/12/22 10:04 84 04/12/22 09:55 98 04/12/22 09:52 82 04/12/22 08:41 97 F L 89 18 106/69 98 04/12/22 08:00 18 04/12/22 04:00 97.4 F L 79 14 108/71 96 40 04/12/22 03:44 40 04/12/22 01:13 40 04/12/22 00:00 97.9 F 86 16 99/63 96 04/11/22 20:00 97.9 F 86 16 112/68 95 04/11/22 17:18 74 16 101/63 94 L 04/11/22 16:23 73 16 120/81 98 04/11/22 16:10 75 18 115/75 98 04/11/22 16:05 67 18 98/59 95 04/11/22 15:51 64 18 88/59 95 04/11/22 15:04 113 H 18 123/89 100 04/11/22 14:37 100 20 97/73 97 04/11/22 13:30 50 04/11/22 13:29 50 04/11/22 13:20 98.8 F 110 H 20 89/63 97 04/11/22 13:00 98 Intake and Output 04/11/22 04/12/22 04/12/22 22:59 06:59 14:59 Intake Total 118 Output Total 600 Balance 118 -600 Intake: Oral 118 Output: Urine 600 Other: Voiding Method Urinal Urinal Urinal # Voids 2 # Bowel Movements 1 Weight 122 kg 120 kg -GENERAL: The patient is alert and oriented x3, not in any acute distress. Obese the patient is currently on 2 L of O2 nasal cannula. Morbidly obese, BMI 39.1 Head exam was generally normal. There was no scleral icterus or corneal arcus. Mucous membranes were moist. HEENT: Pupils are round and equally reacting to light. EOMI. No scleral icterus. No conjunctival pallor. Normocephalic, atraumatic. No pharyngeal erythema. No thyromegaly. The patient has significant crowding of the posterior pharynx and the patient is a Mallampati class IV CARDIOVASCULAR: S1 and S2 present. No murmurs, rubs, or gallops. -PULMONARY: Chest is clear to auscultation, no wheezing or crackles. Scattered wheezing ABDOMEN: Soft, nontender, nondistended, normoactive bowel sounds. No palpable organomegaly. MUSCULOSKELETAL: No joint swelling or deformity. EXTREMITIES: No cyanosis, clubbing, or pedal edema. NEUROLOGICAL: Gross neurological examination did not reveal any focal deficits. SKIN: No rashes. no petechiae. Results - Laboratory Findings CBC and BMP: 04/12/22 04:29 04/12/22 04:29 Abnormal lab findings: Abnormal Labs 04/12/22 04/12/22 04:29 04:29 WBC 13.4 H Hgb 12.7 L MCH 23.7 L MCHC 29.5 L RDW 17.8 H Plt Count 111 L Neutrophils # 11.3 H Sodium 132 L Chloride 85 L Carbon Dioxide 43 H* BUN 38 H Glucose 101 H Calcium 8.1 L - Diagnostic Findings Chest x-ray: image reviewed Assessment and Plan Plan: Acute on chronic shortness of breath. The patient has known history of COPD. In addition, the patient had A. fib/flutter with RVR and the patient underwent cardioversion. His overall condition has improved and the patient has been adequately diuresed and his atrial fib/flutter has converted into normal sinus rhythm. A. fib/flutter with RVR, recovered post-cardioversion Obesity with a BMI of 31.1 and typical features of obstructive sleep apnea. Acute COPD exacerbation, improving Acute kidney injury, improving and her renal functions improved Chronic metabolic alkalosis secondary to chronic hypercapnic respiratory failure. Patient will need a sleep study to be done outpatient basis and he would benefit from a CPAP/BiPAP device History of amphetamine abuse History of alcoholism. Plan Titrate FiO2 to maintain a saturation above 90% currently on 2 L Continue Dameon about treatments [id number] Completed course of prednisone burst taper Outpatient PFT and pulmonary function test and repeat study Chest x-ray was noted and the patient has minimal small right-sided pleural effusion Acute kidney injury is recovered Continue metoprolol May possibly need long-term anticoagulation with Eliquis and this will be discussed with cardiology Smoking cessation counseling smoking cessation counseling will continue to follow
--- NOTE | 2022-04-12 12:28 | XR ---
EXAMINATION TYPE: XR chest 1V DATE OF EXAM: 04/12/2022 11:51 AM COMPARISON: Chest radiographs from 08/06/2018 TECHNIQUE: XR chest 1V Frontal view of the chest. CLINICAL INDICATION:Male, 51 years old with history of chf; FINDINGS: Lungs/Pleura: Bibasilar atelectasis. No evidence for pneumothorax pleural effusion or focal consolida tion. Pulmonary vascularity: Unremarkable. Heart/mediastinum: Cardiomediastinal silhouette is unremarkable. Musculoskeletal: No acute osseous pathology. IMPRESSION: Low lung volumes with Basilar atelectasis without definitive acute cardiopulmonary disease/process.
--- NOTE | 2022-04-12 13:31 | P.CRDCN ---
History of Present Illness History of present illness: HISTORY OF PRESENTING ILLNESS Patient is a pleasant 51-year-old male with history of COPD substance abuse hypertension amphetamine use and prior mild cardiomyopathy EF 4045% from November 2020. He presented secondary to shortness breath and was found to have elevated AST 297 ALT 465 bilirubin 3.9 INR 2.3 creatinine 1.4 with low sodium 1:30 and a potassium of 6.1. Patient was started on IV diuretics and added metoprolol for atrial flutter with RVR. Patient was somewhat difficult to control and therefore transferred to [facility] and had RICKY cardioversion 04/11. 04/12 RICKY yesterday showed EF 40-45% with no significant aortic disease and moderate mitral regurgitation and moderate tricuspid regurgitation. He underwent cardioversion and states he has been feeling the best he has in a number of years. Blood work today shows white blood cell count 13.4, hemoglobin 12.7, platelets 111, sodium 132, CO2 43, BUN 38, creatinine 1.0. He remains on 2 L nasal cannula. States he is feeling much better however still mild dyspnea and still 2+ lower extremity edema. REVIEW OF SYSTEMS At the time of my exam: CONSTITUTIONAL: Denies fever or chills. CARDIOVASCULAR: Denies chest pain, +shortness of breath, +orthopnea, no PND or palpitations. RESPIRATORY: Denies cough. GASTROINTESTINAL: Denies abdominal pain, diarrhea, constipation, nausea or vomiting. MUSCULOSKELETAL: Denies myalgias. NEUROLOGIC: Denies numbness, tingling or weakness. ENDOCRINE: Denies fatigue, weight change, polydipsia or polyurina. GENITOURINARY: Denies burning, hematuria or urgency with micturation. HEMATOLOGIC: Denies history of anemia or bleeding. PHYSICAL EXAMINATION Vital signs reviewed. CONSTITUTIONAL: No apparent distress. HEENT: Head is normocephalic. Pupils are equal, round. Sclerae anicteric. Mucous membranes of the mouth are moist. No JVD. No carotid bruit. CHEST EXAMINATION: Lungs are clear to auscultation. No chest wall tenderness is noted on palpation or with deep breathing. HEART EXAMINATION: Regular rate and rhythm. S1, S2 heard. No murmurs, gallops or rub. ABDOMEN: Soft, nontender. Positive bowel sounds. EXTREMITIES: 2+ peripheral pulses, 2+ lower extremity edema and no calf tenderness. NEUROLOGIC EXAMINATION: Patient is awake, alert and oriented x3. ASSESSMENT 1. Acute on chronic systolic heart failure EF 40-45% 2. History of COPD 3. Methamphetamine use 4. Hyponatremia related to volume overload 5. Moderate mitral regurgitation, moderate tricuspid regurgitation 6. Atrial flutter status post RICKY cardioversion 04/11 7. Elevated LFTs and coagulopathy possibly related to hepatic congestion 8. Acute kidney injury improved PLAN Patient still does have significant amount of volume up and we will continue with diuretics. He is doing much better after RICKY and cardioversion. Continue diuresis and optimize heart failure regimen as able. Methamphetamine discontinuation. Further recs to follow. Past Medical History Past Medical History: Atrial Fibrillation, COPD, Hypertension History of Any Multi-Drug Resistant Organisms: None Reported Additional Past Surgical History / Comment(s): RICKY 04-11-2022 Smoking Status: Current every day smoker Past Alcohol Use History: None Reported Past Drug Use History: None Reported - Past Family History Mother Family Medical History: Dementia Father Family Medical History: Cancer Medications and Allergies Home Medications Medication Instructions Recorded Confirmed Type Albuterol Nebulized [Ventolin 2.5 mg INHALATION RT-Q6H 04/11/22 04/11/22 History Nebulized] Budesonide [Pulmicort] 1 mg INHALATION RT-BID 04/11/22 04/11/22 History Famotidine [Pepcid] 20 mg PO BID 04/11/22 04/11/22 History Ipratropium Nebulized [Atrovent 0.5 mg INHALATION RT-Q6H 04/11/22 04/11/22 History Nebulized 0.2 MG/ML] Ipratropium-Albuterol Nebulize 3 ml INHALATION RT-Q6H 04/11/22 04/11/22 History [Duoneb 0.5 mg-3 mg/3 ml Soln] LORazepam [Ativan] 0.5 mg PO Q6HR PRN 04/11/22 04/11/22 History Melatonin 6 mg PO HS 04/11/22 04/11/22 History Metoclopramide [Reglan] 10 mg PO Q6H PRN 04/11/22 04/11/22 History Metoprolol Tartrate [Lopressor] 100 mg PO TID 04/11/22 04/11/22 History Nicotine 21Mg/24Hr Patch [Habitrol] 1 patch TRANSDERM DAILY 04/11/22 04/11/22 History Pregabalin [Lyrica] 100 mg PO BID 04/11/22 04/11/22 History acetaZOLAMIDE [Diamox] 250 mg PO BID 04/11/22 04/11/22 History predniSONE [Deltasone] 30 mg PO DAILY 04/11/22 04/11/22 History Allergies Allergy/AdvReac Type Severity Reaction Status Date / Time No Known Allergies Allergy Verified 08/06/18 01:15 Physical Exam Vitals: Vital Signs Temp Pulse Pulse Resp BP Pulse Ox FiO2 04/12/22 12:39 97.8 F 87 18 116/64 98 04/12/22 12:10 94 L 04/12/22 12:08 87 04/12/22 10:04 84 04/12/22 09:55 98 04/12/22 09:52 82 04/12/22 08:41 97 F L 89 18 106/69 98 04/12/22 08:00 18 04/12/22 04:00 97.4 F L 79 14 108/71 96 40 04/12/22 03:44 40 04/12/22 01:13 40 04/12/22 00:00 97.9 F 86 16 99/63 96 04/11/22 20:00 97.9 F 86 16 112/68 95 04/11/22 17:18 74 16 101/63 94 L 04/11/22 16:23 73 16 120/81 98 04/11/22 16:10 75 18 115/75 98 04/11/22 16:05 67 18 98/59 95 04/11/22 15:51 64 18 88/59 95 04/11/22 15:04 113 H 18 123/89 100 04/11/22 14:37 100 20 97/73 97 04/11/22 13:30 50 04/11/22 13:29 50 Intake and Output 04/11/22 04/12/22 04/12/22 22:59 06:59 14:59 Intake Total 118 Output Total 600 Balance 118 -600 Intake: Oral 118 Output: Urine 600 Other: Voiding Method Urinal Urinal Urinal # Voids 2 # Bowel Movements 1 Weight 122 kg 120 kg Results 04/12/22 04:29 04/12/22 04:29 CBC 04/12/22 Range/Units 04:29 WBC 13.4 H (3.8-10.6) k/uL RBC 5.35 (4.30-5.90) m/uL Hgb 12.7 L (13.0-17.5) gm/dL Hct 43.1 (39.0-53.0) % Plt Count 111 L (150-450) k/uL Comprehensive Metabolic Panel 04/12/22 Range/Units 04:29 Sodium 132 L (137-145) mmol/L Potassium 3.6 (3.5-5.1) mmol/L Chloride 85 L (98-107) mmol/L Carbon Dioxide 43 H* (22-30) mmol/L BUN 38 H (9-20) mg/dL Creatinine 1.02 (0.66-1.25) mg/dL Glucose 101 H (74-99) mg/dL Calcium 8.1 L (8.4-10.2) mg/dL Current Medications Generic Name Dose Route Start Last Admin Trade Name Freq PRN Reason Stop Dose Admin Acetaminophen 650 mg 04/11/22 17:58 Acetaminophen Tab 325 Mg Tab PO Q6HR PRN Fever and/ or Mild Pain Albuterol/Ipratropium 3 ml 04/11/22 20:00 04/12/22 12:07 Ipratropium-Albuterol 3 Ml Neb INHALATION 3 ml RT-QID ANÍBAL Administration Albuterol/Ipratropium 3 ml 04/11/22 18:25 Ipratropium-Albuterol 3 Ml Neb INHALATION RT-Q2H PRN Shortness Of Breath Or Wheezing Apixaban 5 mg 04/12/22 21:00 Apixaban 5 Mg Tab PO BID [facility] Protocol Budesonide 1 mg 04/11/22 20:00 04/12/22 09:51 Budesonide 1 Mg/2 Ml Nebu INHALATION 1 mg RT-BID ANÍBAL Administration Famotidine 20 mg 04/11/22 21:00 04/12/22 08:39 Famotidine 20 Mg Tab PO 20 mg BID ANÍBAL Administration Hydroxyzine HCl 25 mg 04/12/22 10:35 Hydroxyzine Hcl 25 Mg Tab PO TID PRN Anxiety Lorazepam 0.5 mg 04/11/22 17:56 04/11/22 21:55 Lorazepam 0.5 Mg Tab PO 0.5 mg Q6HR PRN Administration Agitation Melatonin 6 mg 04/11/22 21:00 04/11/22 21:55 Melatonin 3 Mg Tablet PO 6 mg HS ANÍBAL Administration Metoclopramide HCl 10 mg 04/11/22 17:56 Metoclopramide 10 Mg Tab PO Q6H PRN Nausea Metoprolol Tartrate 100 mg 04/11/22 22:00 04/12/22 08:39 Metoprolol Tartrate 50 Mg Tab PO 100 mg TID ANÍBAL Administration Nicotine 1 patch 04/11/22 18:00 04/12/22 08:39 Nicotine 21mg/24hr Patch TRANSDERM 1 patch DAILY ANÍBAL Administration Ondansetron HCl 4 mg 04/11/22 17:58 Ondansetron 4 Mg/2 Ml Vial IVP Q6HR PRN Nausea And Vomiting Prednisone 30 mg 04/12/22 09:00 04/12/22 08:39 Prednisone 10 Mg Tab PO 30 mg DAILY ANÍBAL Administration Pregabalin 100 mg 04/11/22 21:00 04/12/22 08:39 Pregabalin 100 Mg Cap PO 100 mg BID ANÍBAL Administration Intake and Output 04/11/22 04/12/22 04/12/22 22:59 06:59 14:59 Intake Total 118 Output Total 600 Balance 118 -600 Intake: Oral 118 Output: Urine 600 Other: Voiding Method Urinal Urinal Urinal # Voids 2 # Bowel Movements 1 Weight 122 kg 120 kg 04/12/22 04:29 04/12/22 04:29
[2022-04-12] MEDS: FUROSEMIDE 10 MG/ML 4 ML VIAL IV SCH ×2 (14:57→20:28)
[2022-04-12] MEDS: MELATONIN 3 MG TABLET PO SCH (20:25)
[2022-04-12] MEDS: APIXABAN 5 MG TAB PO SCH (20:25)
[2022-04-13] MEDS: BUDESONIDE 1 MG/2 ML NEBU INHALATION SCH ×2 (07:29→20:09)
[2022-04-13] MEDS: IPRATROPIUM-ALBUTEROL 3 ML NEB INHALATION SCH ×4 (07:29→20:10)
[2022-04-13 08:41] LABS: African American GFR (CKD) >90 (>60 ml/min/1.73 sqM); Blood Urea Nitrogen 35 mg/dL (9-20); Chloride 84 mmol/L (98-107); Glucose 106 mg/dL (74-99); Magnesium 2.2 mg/dL (1.6-2.3); Non-African American GFR(CKD) 84 (>60 ml/min/1.73 sqM); Potassium 3.5 mmol/L (3.5-5.1); Sodium 133 mmol/L (137-145)
[2022-04-13 08:48] LABS: Anion Gap 7 mmol/L
[2022-04-13 08:52] LABS: Carbon Dioxide 42 mmol/L (22-30)
[2022-04-13] MEDS: FAMOTIDINE 20 MG TAB PO SCH ×2 (09:06→20:08)
[2022-04-13] MEDS: METOPROLOL TARTRATE 50 MG TAB PO SCH ×3 (09:06→20:08)
[2022-04-13] MEDS: PREGABALIN 100 MG CAP PO SCH ×2 (09:06→20:08)
[2022-04-13] MEDS: APIXABAN 5 MG TAB PO SCH ×2 (09:06→20:08)
[2022-04-13] MEDS: FUROSEMIDE 10 MG/ML 4 ML VIAL IV SCH ×2 (09:06→20:08)
[2022-04-13] MEDS: predniSONE 10 MG TAB PO SCH (09:06)
[2022-04-13] MEDS: NICOTINE 21MG/24HR PATCH TRANSDERM SCH (09:07)
--- NOTE | 2022-04-13 13:47 | P.PN ---
Subjective HISTORY OF PRESENTING ILLNESS Patient is a pleasant 51-year-old male with history of COPD substance abuse hypertension amphetamine use and prior mild cardiomyopathy EF 4045% from November 2020. He presented secondary to shortness breath and was found to have elevated AST 297 ALT 465 bilirubin 3.9 INR 2.3 creatinine 1.4 with low sodium 1:30 and a potassium of 6.1. Patient was started on IV diuretics and added metoprolol for atrial flutter with RVR. Patient was somewhat difficult to control and therefore transferred to [facility] and had RICKY cardioversion 04/11. 04/12 RICKY yesterday showed EF 40-45% with no significant aortic disease and moderate mitral regurgitation and moderate tricuspid regurgitation. He underwent cardioversion and states he has been feeling the best he has in a number of years. Blood work today shows white blood cell count 13.4, hemoglobin 12.7, platelets 111, sodium 132, CO2 43, BUN 38, creatinine 1.0. He remains on 2 L nasal cannula. States he is feeling much better however still mild dyspnea and still 2+ lower extremity edema. 04/13 Patient seen and examined. Patient states his been having good urine output with Lasix. Some improvement lower extremity edema. Creatinine has remained stable at 1.0 PHYSICAL EXAMINATION Vital signs reviewed. CONSTITUTIONAL: No apparent distress. HEENT: Head is normocephalic. Pupils are equal, round. Sclerae anicteric. Mucous membranes of the mouth are moist. No JVD. No carotid bruit. CHEST EXAMINATION: Lungs are clear to auscultation. No chest wall tenderness is noted on palpation or with deep breathing. HEART EXAMINATION: Regular rate and rhythm. S1, S2 heard. No murmurs, gallops or rub. ABDOMEN: Soft, nontender. Positive bowel sounds. EXTREMITIES: 2+ peripheral pulses, 2+ lower extremity edema and no calf tenderness. NEUROLOGIC EXAMINATION: Patient is awake, alert and oriented x3. ASSESSMENT 1. Acute on chronic systolic heart failure EF 40-45% 2. History of COPD 3. Methamphetamine use 4. Hyponatremia related to volume overload 5. Moderate mitral regurgitation, moderate tricuspid regurgitation 6. Atrial flutter status post RICKY cardioversion 04/11 7. Elevated LFTs and coagulopathy possibly related to hepatic congestion 8. Acute kidney injury improved PLAN Patient still does have significant amount of volume up and we will continue with diuretics. He is doing much better after RICKY and cardioversion. Continue diuresis and optimize heart failure regimen as able. Still has significant edema and continue with IV diuresis. Add diamox for contraction alkalosis. Methamphetamine discontinuation. Further recs to follow. Objective - Vital Signs Vital signs: Vital Signs Temp 98.4 F 04/13/22 12:10 Pulse 85 04/13/22 12:10 Resp 18 04/13/22 12:10 BP 108/59 04/13/22 12:10 Pulse Ox 90 L 04/13/22 12:10 FiO2 40 04/13/22 08:20 Intake & Output 04/12/22 04/13/22 04/13/22 18:59 06:59 18:59 Intake Total 1876 Output Total 1950 720 950 Balance -74 -720 -950 Weight 120.9 kg Intake: Oral 1876 Output: Urine 1950 720 950 Other: Voiding Method Urinal Urinal # Voids 2 # Bowel Movements 1 - Labs CBC & Chem 7: 04/12/22 04:29 04/13/22 07:39 Labs: Abnormal Lab Results - Last 24 Hours (Table) 04/13/22 Range/Units 07:39 Sodium 133 L (137-145) mmol/L Chloride 84 L (98-107) mmol/L Carbon Dioxide 42 H* (22-30) mmol/L BUN 35 H (9-20) mg/dL Glucose 106 H (74-99) mg/dL Calcium 8.0 L (8.4-10.2) mg/dL
[2022-04-13] MEDS: acetaZOLAMIDE 250 MG TAB PO SCH ×2 (14:20→20:07)
--- NOTE | 2022-04-13 15:26 | P.PN ---
Subjective Progress Note Date: 04/13/22 This is a 51-year-old male patient of the transferred from [facility] to be treated for atrial flutter refractory to treatment. The patient underwent cardioversion by cardiology. The patient was admitted to [facility] on 04/02/2022. The patient came in there for worsening shortness of breath and he is known to have history of COPD, substance abuse and hypertension. The patient had a urine drug screen was positive for amphetamines and the patient apparently buys prescription amphetamine on the streets and use them regularly as he states that those medication helped him with the breathing. Initially, the patient was placed on a BiPAP as the patient had an acute hy poxic/hypercapnic respiratory failure. His workup showed a elevated proBNP level, echocardiogram showed left ventricular dysfunction with an ejection fraction of 40-45% and mild aortic regurgitation and the right ventricle systolic pressure of 32 mmHg. The patient's blood work also showed a component of an acute kidney injury. His creatinine was elevated. His LFTs were elevated. He had a CAT scan of the abdomen and pelvis that showed some mild abdominal ascites and pleural effusions. No biliary ductal dilatation the gallbladder was normal. Computed tomography scan of the chest was done in the form of an angiogram and it showed no evidence of any pulmonary embolism. She'll benefit pleural effusion and ascites. The patient is a former drinker any projected approximately 11 years ago. He is known to have history of alcohol abuse in addition to substance abuse/narcotic addiction. During the hospitalization of [facility], the patient was seen by various consultants including cardiology. The patient was found to be persistent atrial flutter and for that reason the patient got transferred to our hospital for further evaluation and treatment. Currently is on oxygen and he is on 6 L nasal cannula with a pulse ox of 98%. He is hemodynamically stable. Most recent blood work showing a white cell count 13.4 with a hemoglobin of 12.7 and a platelet count of 111. BUN is currently at 38 with a creatinine of 1.02 and a sodium level is at 132. Potassium levels at 3.6. A repeat chest x-ray was done and showed atelectatic changes lung base bilaterally. Some subpulmonic effusion on the right lung and the right hemidiaphragm is slightly elevated. No evidence of any airspace disease of pulmonary infiltrates noted. The patient is currently on DuoNeb about treatments [id number] on Pulmicort Respules, nicotine patch, prednisone burst taper currently on 30 mg as part of the burst taper. Note that a RICKY was done prior to cardioversion the patient was found to have no evidence of any intracardiac thrombus. There was moderate MR, moderate TR impaired LV function and EF of around 40-45%. He is a chronic THE PATIENT IS CURRENTLY SMOKING HALF TO 1 PACK OF CIGARETTES A DAY. IS A CHRONIC SMOKER. HE CONTINUES TO HAVE SOME MILD EDEMA LOWER EXTREMITIES BILATERALLY. THE PATIENT HAS NOT BEEN DIAGNOSED HAVING OBSTRUCTIVE SLEEP APNEA. ALTHOUGH THE PATIENT HAS THE FEATURES OTHERWISE SAY. HIS BMI 39.1. On today's evaluation of 04/13/2022, the patient is doing well. The patient is being diuresed. The patient is also in negative fluid balance as the patient is receiving 40 mg of IV Lasix every 12 hours. The patient presented to us with shortness of breath. He is known to have COPD. He also had atrial fibrillation/flutter underwent cardioversion. Since then, there has been significant improvement in his respiratory status an appointment with the patient is feeling that he is back to his baseline. He is currently on prednisone burst taper and is currently on 30 minutes by mouth daily. Blood work from today shows a BUN of 35 and a creatinine of 1.02. Sodium level is at 133 with a potassium level of 3.5. The patient remains on Diamox to counteract metabolic alkalosis. He is receiving Diamox to 50 mg by mouth twice a day. He is on long-term anticoagulation with Eliquis 5 mg by mouth twice a day. He will need an outpatient evaluation for sleep apnea. Is a chronic smoker. Lower extremity edema is improving and the patient is currently on Lasix 40 mg IV every 12 hours. Objective - Vital Signs Vital signs: Vital Signs Temp 98.4 F 04/13/22 12:10 Pulse 85 04/13/22 12:10 Resp 18 04/13/22 12:10 BP 108/59 04/13/22 12:10 Pulse Ox 90 L 04/13/22 12:10 FiO2 40 04/13/22 08:20 Intake & Output 04/12/22 04/13/22 04/13/22 18:59 06:59 18:59 Intake Total 1876 Output Total 1950 720 950 Balance -74 -720 -950 Weight 120.9 kg Intake: Oral 1876 Output: Urine 1950 720 950 Other: Voiding Method Urinal Urinal # Voids 2 # Bowel Movements 1 - Exam -GENERAL: The patient is alert and oriented x3, not in any acute distress. Obese the patient is currently on 2 L of O2 nasal cannula. Morbidly obese, BMI 39.1 Head exam was generally normal. There was no scleral icterus or corneal arcus. Mucous membranes were moist. HEENT: Pupils are round and equally reacting to light. EOMI. No scleral icterus. No conjunctival pallor. Normocephalic, atraumatic. No pharyngeal erythema. No thyromegaly. The patient has significant crowding of the posterior pharynx and the patient is a Mallampati class IV CARDIOVASCULAR: S1 and S2 present. No murmurs, rubs, or gallops. -PULMONARY: Chest is clear to auscultation, no wheezing or crackles. Scattered wheezing ABDOMEN: Soft, nontender, nondistended, normoactive bowel sounds. No palpable organomegaly. MUSCULOSKELETAL: No joint swelling or deformity. EXTREMITIES: No cyanosis, clubbing, or pedal edema. NEUROLOGICAL: Gross neurological examination did not reveal any focal deficits. SKIN: No rashes. no petechiae. - Labs CBC & Chem 7: 04/12/22 04:29 04/13/22 07:39 Labs: Abnormal Lab Results - Last 24 Hours (Table) 04/13/22 Range/Units 07:39 Sodium 133 L (137-145) mmol/L Chloride 84 L (98-107) mmol/L Carbon Dioxide 42 H* (22-30) mmol/L BUN 35 H (9-20) mg/dL Glucose 106 H (74-99) mg/dL Calcium 8.0 L (8.4-10.2) mg/dL Assessment and Plan Plan: Acute on chronic shortness of breath. The patient has known history of COPD. In addition, the patient had A. fib/flutter with RVR and the patient underwent cardioversion. His overall condition has improved and the patient has been adequately diuresed and his atrial fib/flutter has converted into normal sinus rhythm. The patient continued to diabetes with IV Lasix. There is improvement in volume status. He is already feeling much better after the RICKY cardioversion. Diamox was added to counteract metabolic alkalosis. A. fib/flutter with RVR, recovered post-cardioversion, remains on IV coagulation with Obesity with a BMI of 31.1 and typical features of obstructive sleep apnea. Acute COPD exacerbation, improving Acute kidney injury, improving and her renal functions improved Chronic metabolic alkalosis secondary to chronic hypercapnic respiratory failure. Patient will need a sleep study to be done outpatient basis and he would benefit from a CPAP/BiPAP device History of amphetamine abuse History of alcoholism. Plan Titrate FiO2 to maintain a saturation above 90% currently on 2 L Continue Dameon about treatments [id number] Completed course of prednisone burst taper Continue diuretics with IV Lasix Continue Diamox Outpatient PFT and pulmonary function test and repeat study Chest x-ray was noted and the patient has minimal small right-sided pleural effusion Acute kidney injury is recovered Continue metoprolol anticoagulation with Eliquis and this will be discussed with cardiology Smoking cessation counseling smoking cessation counseling will continue to follow
[2022-04-13] MEDS: MELATONIN 3 MG TABLET PO SCH (20:08)
--- NOTE | 2022-04-13 22:29 | P.PN ---
Subjective this is a pleasant 51 years old male who was transferred from [facility] to her hospital for cardioversion. He is a known history of COPD and amphetamine abuse. Presented to the hospital because of shortness of breath and dyspnea. Patient has been followed closely by pulmonary and cardiology service there. Also [employer] evaluated the patient. Patient was on A. fib and RVR refractory to medical treatment including Cardizem drip and therefore he was transferred to our facility and he underwent RICKY showing no intracardiac thrombosis followed by successful cardioversion to sinus rhythm. Today is postoperative day #1 He lying in bed comfortable with no significant chest pain, he is somewhat tachypneic. Patient was found to have COPD and with expiratory wheezing with some hypercapnia. He was placed on BiPAP machine, it is at bedside but patient does not like it. CT angiogram of the chest was negative for pulmonary embolism but showed bilateral pleural effusions and abdominal ascites. He was started on IV Lasix and Diamox. Vitas looks stable EKG: Normal sinus rhythm at 64 Patient was on Eliquis at [facility] 04/13/2012 Patient states that he never felt so good for a long time, this is after the cardioversion, he still in sinus rhythm. With no much dyspnea at rest, and oxygen requirements going down to 2-3 L/m Continue on IV Lasix, Eliquis is added for his A. fib. Continue with metoprolol. Pulmonary the case and continued on the prednisone and need pulmonary function tests as an outpatient Discuss plan with the staff Objective - Vital Signs Vital signs: Vital Signs Temp 99.4 F 04/13/22 16:05 Pulse 78 04/13/22 16:46 Resp 18 04/13/22 16:05 BP 122/71 04/13/22 16:05 Pulse Ox 94 L 04/13/22 16:05 FiO2 40 04/13/22 08:20 Intake & Output 04/12/22 04/13/22 04/13/22 18:59 06:59 18:59 Intake Total 187 1618 Output Total 4704 768 8369 Balance -74 720 -232 Weight 120.9 kg Intake: Oral 1875 1618 Output: Urine 7273 [id number] 9279 Other: Voiding Method Urinal Urinal # Voids 2 # Bowel Movements 1 - Labs CBC & Chem 7: 04/12/22 04:29 04/13/22 07:39 Labs: Abnormal Lab Results - Last 24 Hours (Table) 04/13/22 Range/Units 07:39 Sodium 133 L (137-145) mmol/L Chloride 84 L (98-107) mmol/L Carbon Dioxide 42 H* (22-30) mmol/L BUN 35 H (9-20) mg/dL Glucose 106 H (74-99) mg/dL Calcium 8.0 L (8.4-10.2) mg/dL Assessment and Plan Assessment: Acute CHF exacerbation with systolic dysfunction with ejection fraction 40-45% Acute refractory atrial fibrillation's with RVR, status post cardioversion Acute hypoxemic hypercapnic respiratory failure Hypervolemic hyponatremia Moderate MR and TR Mild COPD exacerbation Hypertension Amphetamine abuse Plan: Continue with metoprolol 100 mg No anticoagulation Tube Skiver on the case Patient was on Eliquis at [facility], we'll defer to cardiology went to start anticoagulation continue with prednisone and oxygen. Continue with bronchodilator Pulmonary consult Labs and medication were reviewed.. Continue same treatment. Continue with symptomatic treatment. Resume home medication. Monitor labs and vitals. DVT and GI prophylaxis. Further recommendations as per clinical course of the patient DVT prophylaxis: Defer to cardiology team, was on eliquis GI Prophylaxis: Pepcid PT/OT: Pending Prognosis is guarded discussed with bed side nurse
[2022-04-14] MEDS: BUDESONIDE 1 MG/2 ML NEBU INHALATION SCH ×2 (08:35→20:02)
[2022-04-14] MEDS: IPRATROPIUM-ALBUTEROL 3 ML NEB INHALATION SCH ×4 (08:35→20:02)
[2022-04-14] MEDS: NICOTINE 21MG/24HR PATCH TRANSDERM SCH (09:26)
[2022-04-14] MEDS: acetaZOLAMIDE 250 MG TAB PO SCH (09:27)
[2022-04-14] MEDS: APIXABAN 5 MG TAB PO SCH ×2 (09:27→19:51)
[2022-04-14] MEDS: FUROSEMIDE 10 MG/ML 4 ML VIAL IV SCH ×2 (09:27→19:52)
[2022-04-14] MEDS: PREGABALIN 100 MG CAP PO SCH ×2 (09:27→19:51)
[2022-04-14] MEDS: METOPROLOL TARTRATE 50 MG TAB PO SCH ×3 (09:27→19:52)
[2022-04-14] MEDS: predniSONE 10 MG TAB PO SCH (09:27)
[2022-04-14] MEDS: FAMOTIDINE 20 MG TAB PO SCH ×2 (09:27→19:51)
--- NOTE | 2022-04-14 10:36 | P.PN ---
Subjective this is a pleasant 51 years old male who was transferred from [facility] to her hospital for cardioversion. He is a known history of COPD and amphetamine abuse. Presented to the hospital because of shortness of breath and dyspnea. Patient has been followed closely by pulmonary and cardiology service there. Also shipping lead person evaluated the patient. Patient was on A. fib and RVR refractory to medical treatment including Cardizem drip and therefore he was transferred to our facility and he underwent RICKY showing no intracardiac thrombosis followed by successful cardioversion to sinus rhythm. Today is postoperative day #1 He lying in bed comfortable with no significant chest pain, he is somewhat tachypneic. Patient was found to have COPD and with expiratory wheezing with some hypercapnia. He was placed on BiPAP machine, it is at bedside but patient does not like it. CT angiogram of the chest was negative for pulmonary embolism but showed bilateral pleural effusions and abdominal ascites. He was started on IV Lasix and Diamox. Vitas looks stable EKG: Normal sinus rhythm at 64 Patient was on Eliquis at [facility] 04/13/2012 Patient states that he never felt so good for a long time, this is after the cardioversion, he still in sinus rhythm. With no much dyspnea at rest, and oxygen requirements going down to 2-3 L/m Continue on IV Lasix, Eliquis is added for his A. fib. Continue with metoprolol. Pulmonary the case and continued on the prednisone and need pulmonary function tests as an outpatient Discuss plan with the staff 04/14/2022 Patient little more lethargic today, he was on BiPAP this morning. No chest pain no another new complaint BMP from today is pending Patient still has some leg swelling and basilic up the patient and his still require assistance with a breathing. Continue with IV Lasix with a close monitoring Eliquis 5 mg addedAs well. pulmonary team on the case recommended to continue with the prednisone for now Objective - Vital Signs Vital signs: Vital Signs Temp 97.9 F 04/13/22 20:00 Pulse 76 04/14/22 08:49 Resp 17 04/14/22 04:00 BP 118/65 04/14/22 04:00 Pulse Ox 100 04/14/22 04:00 FiO2 40 04/14/22 08:35 Intake & Output 04/13/22 04/14/22 04/14/22 18:59 06:59 18:59 Intake Total 1618 480 118 Output Total 1850 300 Balance -232 180 118 Weight 123.2 kg Intake: Oral 1618 480 118 Output: Urine 1850 300 Other: Voiding Method Urinal - Exam GENERAL: The patient is alert and oriented x3, not in any acute distress. obese HEENT: Pupils are round and equally reacting to light. EOMI. No scleral icterus. No conjunctival pallor. Normocephalic, atraumatic. No pharyngeal erythema. No th yromegaly. CARDIOVASCULAR: S1 and S2 present. No murmurs, rubs, or gallops. PULMONARY: Chest is clear to auscultation, no wheezing or crackles. ABDOMEN: Soft, nontender, nondistended, normoactive bowel so,unds. No palpable organomegaly. MUSCULOSKELETAL: No joint swelling or deformity. -EXTREMITIES: No cyanosis, clubbing, or pedal edema. bilateral leg swelling NEUROLOGICAL: Gross neurological examination did not reveal any focal deficits. SKIN: No rashes. no petechiae. - Labs CBC & Chem 7: 04/12/22 04:29 04/13/22 07:39 Assessment and Plan Assessment: Acute CHF exacerbation with systolic dysfunction with ejection fraction 40-45% Acute refractory atrial fibrillation's with RVR, status post cardioversion Acute hypoxemic hypercapnic respiratory failure Hypervolemic hyponatremia Moderate MR and TR Mild COPD exacerbation Hypertension Amphetamine abuse Plan: Continue with metoprolol 100 mg No anticoagulation Chemical Compounder Helper on the case Patient was on Eliquis at [facility], we'll defer to cardiology went to start anticoagulation continue with prednisone and oxygen. Continue with bronchodilator Pulmonary consult Labs and medication were reviewed.. Continue same treatment. Continue with symptomatic treatment. Resume home medication. Monitor labs and vitals. DVT and GI prophylaxis. Further recommendations as per clinical course of the patient DVT prophylaxis: Defer to cardiology team, was on eliquis GI Prophylaxis: Pepcid PT/OT: Pending Prognosis is guarded discussed with bed side nurse
[2022-04-14 12:28] LABS: African American GFR (CKD) >90 (>60 ml/min/1.73 sqM); Blood Urea Nitrogen 25 mg/dL (9-20); Calcium 8.1 mg/dL (8.4-10.2); Chloride 86 mmol/L (98-107); Glucose 149 mg/dL (74-99); Non-African American GFR(CKD) >90 (>60 ml/min/1.73 sqM); Potassium 3.7 mmol/L (3.5-5.1); Sodium 136 mmol/L (137-145)
[2022-04-14 12:34] LABS: Anion Gap 3 mmol/L
[2022-04-14 12:37] LABS: Carbon Dioxide 47 mmol/L (22-30)
--- NOTE | 2022-04-14 14:40 | P.PN ---
Subjective HISTORY OF PRESENTING ILLNESS Patient is a pleasant 51-year-old male with history of COPD substance abuse hypertension amphetamine use and prior mild cardiomyopathy EF 4045% from November 2020. He presented secondary to shortness breath and was found to have elevated AST 297 ALT 465 bilirubin 3.9 INR 2.3 creatinine 1.4 with low sodium 1:30 and a potassium of 6.1. Patient was started on IV diuretics and added metoprolol for atrial flutter with RVR. Patient was somewhat difficult to control and therefore transferred to [facility] and had RICKY cardioversion 04/11. 04/12 RICKY yesterday showed EF 40-45% with no significant aortic disease and moderate mitral regurgitation and moderate tricuspid regurgitation. He underwent cardioversion and states he has been feeling the best he has in a number of years. Blood work today shows white blood cell count 13.4, hemoglobin 12.7, platelets 111, sodium 132, CO2 43, BUN 38, creatinine 1.0. He remains on 2 L nasal cannula. States he is feeling much better however still mild dyspnea and still 2+ lower extremity edema. 04/13 Patient seen and examined. Patient states his been having good urine output with Lasix. Some improvement lower extremity edema. Creatinine has remained stable at 1.0 04/14 Patient seen and examined. Continues to have good urine output. Bicarb mildly elevated up to 47. Has still been receiving Diamox. BUN 25, creatinine 0.9. Unclear if accurate ins and outs with only -50cc output over last 24 hrs. PHYSICAL EXAMINATION Vital signs reviewed. CONSTITUTIONAL: No apparent distress. HEENT: Head is normocephalic. Pupils are equal, round. Sclerae anicteric. Mucous membranes of the mouth are moist. No JVD. No carotid bruit. CHEST EXAMINATION: Lungs are clear to auscultation. No chest wall tenderness is noted on palpation or with deep breathing. HEART EXAMINATION: Regular rate and rhythm. S1, S2 heard. No murmurs, gallops or rub. ABDOMEN: Soft, nontender. Positive bowel sounds. EXTREMITIES: 2+ peripheral pulses, 2+ lower extremity edema and no calf tenderness. NEUROLOGIC EXAMINATION: Patient is awake, alert and oriented x3. ASSESSMENT 1. Acute on chronic systolic heart failure EF 40-45% 2. History of COPD 3. Methamphetamine use 4. Hyponatremia related to volume overload 5. Moderate mitral regurgitation, moderate tricuspid regurgitation 6. Atrial flutter status post RICKY cardioversion 04/11 7. Elevated LFTs and coagulopathy possibly related to hepatic congestion 8. Acute kidney injury improved PLAN Patient still does have significant amount of volume up and we will continue with diuretics. Add Zaroxolyn with Lasix and Diamox. He is doing much better after RICKY and cardioversion. Further recs to follow. Objective - Vital Signs Vital signs: Vital Signs Temp 97.9 F 04/14/22 08:00 Pulse 72 04/14/22 12:12 Resp 22 04/14/22 08:00 BP 113/67 04/14/22 08:00 Pulse Ox 98 04/14/22 08:00 FiO2 40 04/14/22 08:35 Intake & Output 04/13/22 04/14/22 04/14/22 18:59 06:59 18:59 Intake Total 1618 480 236 Output Total 1850 300 Balance -232 180 236 Weight 123.2 kg Intake: Oral 1618 480 236 Output: Urine 1850 300 Other: Voiding Method Urinal Urinal - Labs CBC & Chem 7: 04/12/22 04:29 04/14/22 11:17 Labs: Abnormal Lab Results - Last 24 Hours (Table) 04/14/22 Range/Units 11:17 Sodium 136 L (137-145) mmol/L Chloride 86 L (98-107) mmol/L Carbon Dioxide 47 H* (22-30) mmol/L BUN 25 H (9-20) mg/dL Glucose 149 H (74-99) mg/dL Calcium 8.1 L (8.4-10.2) mg/dL
--- NOTE | 2022-04-14 15:27 | P.PN ---
Subjective Progress Note Date: 04/14/22 This is a 51-year-old male patient of the transferred from [facility] to be treated for atrial flutter refractory to treatment. The patient underwent cardioversion by cardiology. The patient was admitted to [facility] on 04/02/2022. The patient came in there for worsening shortness of breath and he is known to have history of COPD, substance abuse and hypertension. The patient had a urine drug screen was positive for amphetamines and the patient apparently buys prescription amphetamine on the streets and use them regularly as he states that those medication helped him with the breathing. Initially, the patient was placed on a BiPAP as the patient had an acute hy poxic/hypercapnic respiratory failure. His workup showed a elevated proBNP level, echocardiogram showed left ventricular dysfunction with an ejection fraction of 40-45% and mild aortic regurgitation and the right ventricle systolic pressure of 32 mmHg. The patient's blood work also showed a component of an acute kidney injury. His creatinine was elevated. His LFTs were elevated. He had a CAT scan of the abdomen and pelvis that showed some mild abdominal ascites and pleural effusions. No biliary ductal dilatation the gallbladder was normal. Computed tomography scan of the chest was done in the form of an angiogram and it showed no evidence of any pulmonary embolism. She'll benefit pleural effusion and ascites. The patient is a former drinker any projected approximately 11 years ago. He is known to have history of alcohol abuse in addition to substance abuse/narcotic addiction. During the hospitalization of [facility], the patient was seen by various consultants including cardiology. The patient was found to be persistent atrial flutter and for that reason the patient got transferred to our hospital for further evaluation and treatment. Currently is on oxygen and he is on 6 L nasal cannula with a pulse ox of 98%. He is hemodynamically stable. Most recent blood work showing a white cell count 13.4 with a hemoglobin of 12.7 and a platelet count of 111. BUN is currently at 38 with a creatinine of 1.02 and a sodium level is at 132. Potassium levels at 3.6. A repeat chest x-ray was done and showed atelectatic changes lung base bilaterally. Some subpulmonic effusion on the right lung and the right hemidiaphragm is slightly elevated. No evidence of any airspace disease of pulmonary infiltrates noted. The patient is currently on DuoNeb about treatments [id number] on Pulmicort Respules, nicotine patch, prednisone burst taper currently on 30 mg as part of the burst taper. Note that a RICKY was done prior to cardioversion the patient was found to have no evidence of any intracardiac thrombus. There was moderate MR, moderate TR impaired LV function and EF of around 40-45%. He is a chronic THE PATIENT IS CURRENTLY SMOKING HALF TO 1 PACK OF CIGARETTES A DAY. IS A CHRONIC SMOKER. HE CONTINUES TO HAVE SOME MILD EDEMA LOWER EXTREMITIES BILATERALLY. THE PATIENT HAS NOT BEEN DIAGNOSED HAVING OBSTRUCTIVE SLEEP APNEA. ALTHOUGH THE PATIENT HAS THE FEATURES OTHERWISE SAY. HIS BMI 39.1. On today's evaluation of 04/13/2022, the patient is doing well. The patient is being diuresed. The patient is also in negative fluid balance as the patient is receiving 40 mg of IV Lasix every 12 hours. The patient presented to us with shortness of breath. He is known to have COPD. He also had atrial fibrillation/flutter underwent cardioversion. Since then, there has been significant improvement in his respiratory status an appointment with the patient is feeling that he is back to his baseline. He is currently on prednisone burst taper and is currently on 30 minutes by mouth daily. Blood work from today shows a BUN of 35 and a creatinine of 1.02. Sodium level is at 133 with a potassium level of 3.5. The patient remains on Diamox to counteract metabolic alkalosis. He is receiving Diamox to 50 mg by mouth twice a day. He is on long-term anticoagulation with Eliquis 5 mg by mouth twice a day. He will need an outpatient evaluation for sleep apnea. Is a chronic smoker. Lower extremity edema is improving and the patient is currently on Lasix 40 mg IV every 12 hours. On 04/14/2022, the patient is doing well. No specific complaints. He remains on diuretics with Lasix 40 mg IV every 12 hours. He is a negative fluid balance. He is also taking Zaroxolyn 10 mg by mouth daily. On his blood work, the patient developed metabolic alkalosis and the serum bicarbs of 47. BUN is at 25 with a creatinine 0.9 and a sodium level is 136. The patient has a negative fluid balance of 794 mL over the past 24 hours. The patient remains on long-term anticoagulation with Eliquis. The patient will be given 2 doses of Diamox 500 mg IV over the next 24 hours. Objective - Vital Signs Vital signs: Vital Signs Temp 97.9 F 04/14/22 08:00 Pulse 72 04/14/22 12:12 Resp 22 04/14/22 08:00 BP 113/67 04/14/22 08:00 Pulse Ox 98 04/14/22 08:00 FiO2 40 04/14/22 08:35 Intake & Output 04/13/22 04/14/22 04/14/22 18:59 06:59 18:59 Intake Total 1618 480 236 Output Total 1850 300 Balance -232 180 236 Weight 123.2 kg Intake: Oral 1618 480 236 Output: Urine 1850 300 Other: Voiding Method Urinal Urinal - Exam -GENERAL: The patient is alert and oriented x3, not in any acute distress. Obese the patient is currently on 2 L of O2 nasal cannula. Morbidly obese, BMI 39.1 Head exam was generally normal. There was no scleral icterus or corneal arcus. Mucous membranes were moist. HEENT: Pupils are round and equally reacting to light. EOMI. No scleral icterus. No conjunctival pallor. Normocephalic, atraumatic. No pharyngeal erythema. No thyromegaly. The patient has significant crowding of the posterior pharynx and the patient is a Mallampati class IV CARDIOVASCULAR: S1 and S2 present. No murmurs, rubs, or gallops. -PULMONARY: Chest is clear to auscultation, no wheezing or crackles. Scattered wheezing ABDOMEN: Soft, nontender, nondistended, normoactive bowel sounds. No palpable organomegaly. MUSCULOSKELETAL: No joint swelling or deformity. EXTREMITIES: No cyanosis, clubbing, or pedal edema. NEUROLOGICAL: Gross neurological examination did not reveal any focal deficits. SKIN: No rashes. no petechiae. - Labs CBC & Chem 7: 04/12/22 04:29 04/14/22 11:17 Labs: Abnormal Lab Results - Last 24 Hours (Table) 04/14/22 Range/Units 11:17 Sodium 136 L (137-145) mmol/L Chloride 86 L (98-107) mmol/L Carbon Dioxide 47 H* (22-30) mmol/L BUN 25 H (9-20) mg/dL Glucose 149 H (74-99) mg/dL Calcium 8.1 L (8.4-10.2) mg/dL Assessment and Plan Plan: Acute on chronic shortness of breath. The patient has known history of COPD. In addition, the patient had A. fib/flutter with RVR and the patient underwent cardioversion. His overall condition has improved and the patient has been adequately diuresed and his atrial fib/flutter has converted into normal sinus rhythm. The patient continued to diabetes with IV Lasix. There is improvement in volume status. He is already feeling much better after the RICKY cardioversion. Diamox was added to counteract metabolic alkalosis. The patient continues to be alkalotic. Serum bicarbs of 47. He is still being diuresed with a combination of Lasix and Zaroxolyn. A. fib/flutter with RVR, recovered post-cardioversion, remains on IV coagulation with Obesity with a BMI of 31.1 and typical features of obstructive sleep apnea. Acute COPD exacerbation, improving Acute kidney injury, improving and her renal functions improved Chronic metabolic alkalosis secondary to chronic hypercapnic respiratory failure. Patient will need a sleep study to be done outpatient basis and he would benefit from a CPAP/BiPAP device History of amphetamine abuse History of alcoholism. Plan Titrate FiO2 to maintain a saturation above 90% currently on 2 L Continue DuoNeb about treatments [id number] Completed course of prednisone burst taper Continue diuretics with IV Lasix Continue Diamox and the patient will be given 500 mg IV 2 doses Repeat electronics that a.m. Outpatient PFT and pulmonary function test and repeat study Chest x-ray was noted and the patient has minimal small right-sided pleural effusion Acute kidney injury is recovered Continue metoprolol anticoagulation with Eliquis and this will be discussed with cardiology Smoking cessation counseling smoking cessation counseling will continue to follow
[2022-04-14] MEDS: metOLazone 5 MG TAB PO SCH (16:35)
[2022-04-14 19:46] LABS: Glucose,Whole Blood 233 mg/dL (70-110)
[2022-04-14] MEDS: MELATONIN 3 MG TABLET PO SCH (19:52)
--- NOTE | 2022-04-15 07:25 | XR ---
EXAMINATION TYPE: XR chest 1V DATE OF EXAM: 04/15/2022 COMPARISON: 04/12/2022 HISTORY: Follow-up CHF TECHNIQUE: Single frontal view of the chest is obtained. FINDINGS: There is improved aeration in the right lung base compared to previous likely secondary to decreased right pleural effusion. The left lung is clear. The heart size normal. The pulmonary vasculature appears slightly cephalized. There is no pneumothorax. The osseous structures are intact IMPRESSION: Acute cardiopulmonary disease consistent with mild CHF with improvement secondary to bet ter aeration in the right lung base and decreasing pleural effusion.
[2022-04-15 08:15] LABS: Anisocytosis Slight; Basophils # (A) 0.1 k/uL (0-0.2); Basophils % (A) 0 %; Eosinophils # (A) 0.1 k/uL (0-0.7); Eosinophils % (A) 1 %; HCT 42.5 % (39.0-53.0); HGB 12.3 gm/dL (13.0-17.5); Hypochromasia Marked; Lymphocytes # (A) 1.8 k/uL (1.0-4.8); Lymphocytes % (A) 11 %; MCH 24.1 pg (25.0-35.0); MCHC 28.9 g/dL (31.0-37.0); MCV 83.4 fL (80.0-100.0); Mean Platelet Volume 9.7; Monocytes # (A) 0.8 k/uL (0-1.0); Monocytes % (A) 5 %; Neutrophils # (A) 13.3 k/uL (1.3-7.7); Neutrophils % (A) 82 %; RDW 17.9 % (11.5-15.5); WBC 16.3 k/uL (3.8-10.6)
[2022-04-15 08:22] LABS: Platelet Count 92 k/uL (150-450)
[2022-04-15 08:24] LABS: ALT 57 U/L (4-49); AST 35 U/L (17-59); African American GFR (CKD) >90 (>60 ml/min/1.73 sqM); Albumin 3.6 g/dL (3.5-5.0); Alkaline Phosphatase 127 U/L (38-126); Blood Urea Nitrogen 19 mg/dL (9-20); Chloride 86 mmol/L (98-107); Glucose 127 mg/dL (74-99); Non-African American GFR(CKD) >90 (>60 ml/min/1.73 sqM); Potassium 2.9 mmol/L (3.5-5.1); Sodium 133 mmol/L (137-145); Total Bilirubin 0.7 mg/dL (0.2-1.3); Total Protein 6.1 g/dL (6.3-8.2)
[2022-04-15 08:33] LABS: Anion Gap 6 mmol/L
[2022-04-15 08:39] LABS: Carbon Dioxide 41 mmol/L (22-30)
[2022-04-15] MEDS: BUDESONIDE 1 MG/2 ML NEBU INHALATION SCH ×2 (08:55→18:56)
[2022-04-15] MEDS: IPRATROPIUM-ALBUTEROL 3 ML NEB INHALATION SCH ×4 (08:56→18:56)
[2022-04-15] MEDS ORDERED: Potassium Replacement Protocol 1 EACH MISC MISCELLANE PRN (09:07)
[2022-04-15] MEDS ORDERED: Magnesium Replacement Protocol 1 EACH MISC MISCELLANE PRN (09:08)
[2022-04-15] MEDS ORDERED: HYDROcodone/APAP 5-325MG 1 EACH TAB PO PRN (09:09)
[2022-04-15] MEDS ORDERED: HYDROcodone/APAP 5-325MG 1 EACH TAB PO STA (09:09)
--- NOTE | 2022-04-15 09:13 | P.PN ---
Subjective this is a pleasant 51 years old male who was transferred from [facility] to her hospital for cardioversion. He is a known history of COPD and amphetamine abuse. Presented to the hospital because of shortness of breath and dyspnea. Patient has been followed closely by pulmonary and cardiology service there. Also water conservation specialist evaluated the patient. Patient was on A. fib and RVR refractory to medical treatment including Cardizem drip and therefore he was transferred to our facility and he underwent RICKY showing no intracardiac thrombosis followed by successful cardioversion to sinus rhythm. Today is postoperative day #1 He lying in bed comfortable with no significant chest pain, he is somewhat tachypneic. Patient was found to have COPD and with expiratory wheezing with some hypercapnia. He was placed on BiPAP machine, it is at bedside but patient does not like it. CT angiogram of the chest was negative for pulmonary embolism but showed bilateral pleural effusions and abdominal ascites. He was started on IV Lasix and Diamox. Vitas looks stable EKG: Normal sinus rhythm at 64 Patient was on Eliquis at [facility] 04/13/2012 Patient states that he never felt so good for a long time, this is after the cardioversion, he still in sinus rhythm. With no much dyspnea at rest, and oxygen requirements going down to 2-3 L/m Continue on IV Lasix, Eliquis is added for his A. fib. Continue with metoprolol. Pulmonary the case and continued on the prednisone and need pulmonary function tests as an outpatient Discuss plan with the staff 04/14/2022 Patient little more lethargic today, he was on BiPAP this morning. No chest pain no another new complaint BMP from today is pending Patient still has some leg swelling and basilic up the patient and his still require assistance with a breathing. Continue with IV Lasix with a close monitoring Eliquis 5 mg addedAs well. pulmonary team on the case recommended to continue with the prednisone for now 04/15/2022 Breathing is improving slowly and gradually, his still using the BiPAP machine including irritative this morning. Still has basal crepitation however is improving. Today's complaining of from bilateral ankle and knee pain and talus Rx and elbow pain. Patient denies history of gout or other rheumatological disease. Patient is already on tapered prednisone 30 mg this morning. We will check uric acid. He remains on IV Lasix for, from twice daily, Eliquis Medication added for him. Also metolazone. Low potassium replaced and monitor electrolytes Objective - Vital Signs Vital signs: Vital Signs Temp 97.7 F 04/14/22 20:00 Pulse 88 04/15/22 08:53 Resp 16 04/15/22 04:00 BP 83/53 04/15/22 04:00 Pulse Ox 100 04/15/22 04:00 FiO2 40 04/15/22 04:00 Intake & Output 04/14/22 04/15/22 04/15/22 18:59 06:59 18:59 Intake Total 354 960 Output Total 1000 2750 Balance -646 -1790 Weight 119.8 kg Intake: Oral 354 960 Output: Urine 1000 2750 Other: Voiding Method Urinal Urinal - Exam GENERAL: The patient is alert and oriented x3, not in any acute distress. obese HEENT: Pupils are round and equally reacting to light. EOMI. No scleral icterus. No conjunctival pallor. Normocephalic, atraumatic. No pharyngeal erythema. No thyromegaly. CARDIOVASCULAR: S1 and S2 present. No murmurs, rubs, or gallops. PULMONARY: Chest is clear to auscultation, no wheezing or crackles. ABDOMEN: Soft, nontender, nondistended, normoactive bowel so,unds. No palpable organomegaly. MUSCULOSKELETAL: No joint swelling or deformity. -EXTREMITIES: No cyanosis, clubbing, or pedal edema. bilateral leg swelling NEUROLOGICAL: Gross neurological examination did not reveal any focal deficits. SKIN: No rashes. no petechiae. - Labs CBC & Chem 7: 04/15/22 07:13 04/15/22 07:13 Labs: Abnormal Lab Results - Last 24 Hours (Table) 04/14/22 04/14/22 04/15/22 Range/Units 11:17 19:43 07:13 WBC (3.8-10.6) k/uL Hgb (13.0-17.5) gm/dL MCH (25.0-35.0) pg MCHC (31.0-37.0) g/dL RDW (11.5-15.5) % Plt Count (150-450) k/uL Neutrophils # (1.3-7.7) k/uL Sodium 136 L 133 L (137-145) mmol/L Potassium 2.9 L (3.5-5.1) mmol/L Chloride 86 L 86 L (98-107) mmol/L Carbon Dioxide 47 H* 41 H* (22-30) mmol/L BUN 25 H (9-20) mg/dL Glucose 149 H 127 H (74-99) mg/dL POC Glucose (mg/dL) 233 H (70-110) mg/dL Calcium 8.1 L 8.0 L (8.4-10.2) mg/dL ALT 57 H (4-49) U/L Alkaline Phosphatase 127 H (38-126) U/L Total Protein 6.1 L (6.3-8.2) g/dL 04/15/22 Range/Units 07:13 WBC 16.3 H (3.8-10.6) k/uL Hgb 12.3 L (13.0-17.5) gm/dL MCH 24.1 L (25.0-35.0) pg MCHC 28.9 L (31.0-37.0) g/dL RDW 17.9 H (11.5-15.5) % Plt Count 92 L (150-450) k/uL Neutrophils # 13.3 H (1.3-7.7) k/uL Sodium (137-145) mmol/L Potassium (3.5-5.1) mmol/L Chloride (98-107) mmol/L Carbon Dioxide (22-30) mmol/L BUN (9-20) mg/dL Glucose (74-99) mg/dL POC Glucose (mg/dL) (70-110) mg/dL Calcium (8.4-10.2) mg/dL ALT (4-49) U/L Alkaline Phosphatase (38-126) U/L Total Protein (6.3-8.2) g/dL Assessment and Plan Assessment: Acute CHF exacerbation with systolic dysfunction with ejection fraction 40-45% Acute refractory atrial fibrillation's with RVR, status post cardioversion Acute hypoxemic hypercapnic respiratory failure Hypervolemic hyponatremia Moderate MR and TR Mild polyarthralgia Mild COPD exacerbation Hypertension Amphetamine abuse Plan: Continue with metoprolol 100 mg No anticoagulation Highway Administrative Engineer on the case Patient was on Eliquis at [facility], we'll defer to cardiology went to start anticoagulation continue with prednisone and oxygen. Continue with bronchodilator Pulmonary consult add [place] when necessary and check uric acid level Labs and medication were reviewed.. Continue same treatment. Continue with symptomatic treatment. Resume home medication. Monitor labs and vitals. DVT and GI prophylaxis. Further recommendations as per clinical course of the patient DVT prophylaxis: Defer to cardiology team, was on eliquis GI Prophylaxis: Pepcid PT/OT: Pending Prognosis is guarded discussed with bed side nurse
[2022-04-15] MEDS: PREGABALIN 100 MG CAP PO SCH ×2 (09:36→21:15)
[2022-04-15] MEDS: NICOTINE 21MG/24HR PATCH TRANSDERM SCH (09:36)
[2022-04-15] MEDS: POTASSIUM CHLORIDE ER 20 MEQ TAB.ER PO SCH ×2 (09:36→13:10)
[2022-04-15] MEDS: predniSONE 10 MG TAB PO SCH (09:37)
[2022-04-15] MEDS: APIXABAN 5 MG TAB PO SCH ×2 (09:37→21:16)
[2022-04-15] MEDS: METOPROLOL TARTRATE 50 MG TAB PO SCH ×3 (09:37→21:15)
[2022-04-15] MEDS: FUROSEMIDE 10 MG/ML 4 ML VIAL IV SCH ×2 (09:38→21:17)
[2022-04-15] MEDS: FAMOTIDINE 20 MG TAB PO SCH ×2 (09:38→21:16)
--- NOTE | 2022-04-15 11:07 | P.PN ---
Subjective HISTORY OF PRESENTING ILLNESS Patient is a pleasant 51-year-old male with history of COPD substance abuse hypertension amphetamine use and prior mild cardiomyopathy EF 4045% from November 2020. He presented secondary to shortness breath and was found to have elevated AST 297 ALT 465 bilirubin 3.9 INR 2.3 creatinine 1.4 with low sodium 1:30 and a potassium of 6.1. Patient was started on IV diuretics and added metoprolol for atrial flutter with RVR. Patient was somewhat difficult to control and therefore transferred to [facility] and had RICKY cardioversion 04/11. 04/12 RICKY yesterday showed EF 40-45% with no significant aortic disease and moderate mitral regurgitation and moderate tricuspid regurgitation. He underwent cardioversion and states he has been feeling the best he has in a number of years. Blood work today shows white blood cell count 13.4, hemoglobin 12.7, platelets 111, sodium 132, CO2 43, BUN 38, creatinine 1.0. He remains on 2 L nasal cannula. States he is feeling much better however still mild dyspnea and still 2+ lower extremity edema. 04/13 Patient seen and examined. Patient states his been having good urine output with Lasix. Some improvement lower extremity edema. Creatinine has remained stable at 1.0 04/14 Patient seen and examined. Continues to have good urine output. Bicarb mildly elevated up to 47. Has still been receiving Diamox. BUN 25, creatinine 0.9. Unclear if accurate ins and outs with only -50cc output over last 24 hrs. 04/15 Patient seen and examined. He admits to good urine output. At and after ins and outs however this morning -2 L. White blood cell count 16, platelets mildly decreased at 92, sodium 133, potassium 2.9, bicarb 41, creatinine 0.9. He did get dose of Zaroxolyn yesterday and this morning. PHYSICAL EXAMINATION Vital signs reviewed. CONSTITUTIONAL: No apparent distress. HEENT: Head is normocephalic. Pupils are equal, round. Sclerae anicteric. Mucous membranes of the mouth are moist. No JVD. No carotid bruit. CHEST EXAMINATION: Lungs are clear to auscultation. No chest wall tenderness is noted on palpation or with deep breathing. HEART EXAMINATION: Regular rate and rhythm. S1, S2 heard. No murmurs, gallops or rub. ABDOMEN: Soft, nontender. Positive bowel sounds. EXTREMITIES: 2+ peripheral pulses, 2+ lower extremity edema and no calf ten derness. NEUROLOGIC EXAMINATION: Patient is awake, alert and oriented x3. ASSESSMENT 1. Acute on chronic systolic heart failure EF 40-45%, still with significant right sided heart failure 2. History of COPD 3. Methamphetamine use 4. Hyponatremia related to volume overload 5. Moderate mitral regurgitation, moderate tricuspid regurgitation 6. Atrial flutter status post RICKY cardioversion 04/11 7. Elevated LFTs and coagulopathy possibly related to hepatic congestion 8. Acute kidney injury improved PLAN Patient still does have significant amount of volume up and we will continue with diuretics. S/p Zaroxolyn 04/14 and 04/15 with Lasix and Diamox. Possible transition to orals in next 24-48 hrs. Monitor K+. Likely transition to Bumex for better absorption. He is doing much better after RICKY and cardioversion. Further recs to follow. Objective - Vital Signs Vital signs: Vital Signs Temp 98.2 F 04/15/22 08:00 Pulse 88 04/15/22 09:13 Resp 20 04/15/22 08:00 BP 104/66 04/15/22 08:00 Pulse Ox 100 04/15/22 08:00 FiO2 40 04/15/22 04:00 Intake & Output 04/14/22 04/15/22 04/15/22 18:59 06:59 18:59 Intake Total 354 960 Output Total 1000 2750 Balance -646 -1790 Weight 119.8 kg Intake: Oral 354 960 Output: Urine 1000 2750 Other: Voiding Method Urinal Urinal - Labs CBC & Chem 7: 04/15/22 07:13 04/15/22 07:13 Labs: Abnormal Lab Results - Last 24 Hours (Table) 04/14/22 04/14/22 04/15/22 Range/Units 11:17 19:43 07:13 WBC (3.8-10.6) k/uL Hgb (13.0-17.5) gm/dL MCH (25.0-35.0) pg MCHC (31.0-37.0) g/dL RDW (11.5-15.5) % Plt Count (150-450) k/uL Neutrophils # (1.3-7.7) k/uL Sodium 136 L 133 L (137-145) mmol/L Potassium 2.9 L (3.5-5.1) mmol/L Chloride 86 L 86 L (98-107) mmol/L Carbon Dioxide 47 H* 41 H* (22-30) mmol/L BUN 25 H (9-20) mg/dL Glucose 149 H 127 H (74-99) mg/dL POC Glucose (mg/dL) 233 H (70-110) mg/dL Calcium 8.1 L 8.0 L (8.4-10.2) mg/dL ALT 57 H (4-49) U/L Alkaline Phosphatase 127 H (38-126) U/L Total Protein 6.1 L (6.3-8.2) g/dL 04/15/22 Range/Units 07:13 WBC 16.3 H (3.8-10.6) k/uL Hgb 12.3 L (13.0-17.5) gm/dL MCH 24.1 L (25.0-35.0) pg MCHC 28.9 L (31.0-37.0) g/dL RDW 17.9 H (11.5-15.5) % Plt Count 92 L (150-450) k/uL Neutrophils # 13.3 H (1.3-7.7) k/uL Sodium (137-145) mmol/L Potassium (3.5-5.1) mmol/L Chloride (98-107) mmol/L Carbon Dioxide (22-30) mmol/L BUN (9-20) mg/dL Glucose (74-99) mg/dL POC Glucose (mg/dL) (70-110) mg/dL Calcium (8.4-10.2) mg/dL ALT (4-49) U/L Alkaline Phosphatase (38-126) U/L Total Protein (6.3-8.2) g/dL
--- NOTE | 2022-04-15 11:48 | P.PN ---
Subjective Progress Note Date: 04/15/22 This is a 51-year-old male patient of the transferred from [facility] to be treated for atrial flutter refractory to treatment. The patient underwent cardioversion by cardiology. The patient was admitted to [facility] on 04/02/2022. The patient came in there for worsening shortness of breath and he is known to have history of COPD, substance abuse and hypertension. The patient had a urine drug screen was positive for amphetamines and the patient apparently buys prescription amphetamine on the streets and use them regularly as he states that those medication helped him with the breathing. Initially, the patient was placed on a BiPAP as the patient had an acute hy poxic/hypercapnic respiratory failure. His workup showed a elevated proBNP level, echocardiogram showed left ventricular dysfunction with an ejection fraction of 40-45% and mild aortic regurgitation and the right ventricle systolic pressure of 32 mmHg. The patient's blood work also showed a component of an acute kidney injury. His creatinine was elevated. His LFTs were elevated. He had a CAT scan of the abdomen and pelvis that showed some mild abdominal ascites and pleural effusions. No biliary ductal dilatation the gallbladder was normal. Computed tomography scan of the chest was done in the form of an angiogram and it showed no evidence of any pulmonary embolism. She'll benefit pleural effusion and ascites. The patient is a former drinker any projected approximately 11 years ago. He is known to have history of alcohol abuse in addition to substance abuse/narcotic addiction. During the hospitalization of [facility], the patient was seen by various consultants including cardiology. The patient was found to be persistent atrial flutter and for that reason the patient got transferred to our hospital for further evaluation and treatment. Currently is on oxygen and he is on 6 L nasal cannula with a pulse ox of 98%. He is hemodynamically stable. Most recent blood work showing a white cell count 13.4 with a hemoglobin of 12.7 and a platelet count of 111. BUN is currently at 38 with a creatinine of 1.02 and a sodium level is at 132. Potassium levels at 3.6. A repeat chest x-ray was done and showed atelectatic changes lung base bilaterally. Some subpulmonic effusion on the right lung and the right hemidiaphragm is slightly elevated. No evidence of any airspace disease of pulmonary infiltrates noted. The patient is currently on DuoNeb about treatments [id number] on Pulmicort Respules, nicotine patch, prednisone burst taper currently on 30 mg as part of the burst taper. Note that a RICKY was done prior to cardioversion the patient was found to have no evidence of any intracardiac thrombus. There was moderate MR, moderate TR impaired LV function and EF of around 40-45%. He is a chronic THE PATIENT IS CURRENTLY SMOKING HALF TO 1 PACK OF CIGARETTES A DAY. IS A CHRONIC SMOKER. HE CONTINUES TO HAVE SOME MILD EDEMA LOWER EXTREMITIES BILATERALLY. THE PATIENT HAS NOT BEEN DIAGNOSED HAVING OBSTRUCTIVE SLEEP APNEA. ALTHOUGH THE PATIENT HAS THE FEATURES OTHERWISE SAY. HIS BMI 39.1. On today's evaluation of 04/13/2022, the patient is doing well. The patient is being diuresed. The patient is also in negative fluid balance as the patient is receiving 40 mg of IV Lasix every 12 hours. The patient presented to us with shortness of breath. He is known to have COPD. He also had atrial fibrillation/flutter underwent cardioversion. Since then, there has been significant improvement in his respiratory status an appointment with the patient is feeling that he is back to his baseline. He is currently on prednisone burst taper and is currently on 30 minutes by mouth daily. Blood work from today shows a BUN of 35 and a creatinine of 1.02. Sodium level is at 133 with a potassium level of 3.5. The patient remains on Diamox to counteract metabolic alkalosis. He is receiving Diamox to 50 mg by mouth twice a day. He is on long-term anticoagulation with Eliquis 5 mg by mouth twice a day. He will need an outpatient evaluation for sleep apnea. Is a chronic smoker. Lower extremity edema is improving and the patient is currently on Lasix 40 mg IV every 12 hours. On 04/14/2022, the patient is doing well. No specific complaints. He remains on diuretics with Lasix 40 mg IV every 12 hours. He is a negative fluid balance. He is also taking Zaroxolyn 10 mg by mouth daily. On his blood work, the patient developed metabolic alkalosis and the serum bicarbs of 47. BUN is at 25 with a creatinine 0.9 and a sodium level is 136. The patient has a negative fluid balance of 794 mL over the past 24 hours. The patient remains on long-term anticoagulation with Eliquis. The patient will be given 2 doses of Diamox 500 mg IV over the next 24 hours. On today's evaluation of 04/15/2022, Emilio is being seen for a follow-up. Noted the patient was being diuresed with IV Lasix. He is in a negative fluid balance of at least 1.7 L since yesterday. He had developed significant metabolic alkalosis and a serum bicarb was as high as 47, Clinically, the patient is feeling well. Is currently on room air oxygen. Overnight is using the BiPAP. He is urinating very well. His metabolic alkalosis improved as the patient was given 2 doses of Diamox and a serum bicarb is down to 41. BUN is at 19 with a creatinine of 0.9. He remains on IV Lasix. Objective - Vital Signs Vital signs: Vital Signs Temp 98.2 F 04/15/22 08:00 Pulse 88 04/15/22 09:13 Resp 20 04/15/22 08:00 BP 104/66 04/15/22 08:00 Pulse Ox 100 04/15/22 08:00 FiO2 40 04/15/22 04:00 Intake & Output 04/14/22 04/15/22 04/15/22 18:59 06:59 18:59 Intake Total 354 960 Output Total 1000 2750 Balance -646 -1790 Weight 119.8 kg Intake: Oral 354 960 Output: Urine 1000 2750 Other: Voiding Method Urinal Urinal - Exam -GENERAL: The patient is alert and oriented x3, not in any acute distress. Obese the patient is currently on 2 L of O2 nasal cannula. Morbidly obese, BMI 39.1 Head exam was generally normal. There was no scleral icterus or corneal arcus. Mucous membranes were moist. HEENT: Pupils are round and equally reacting to light. EOMI. No scleral icterus. No conjunctival pallor. Normocephalic, atraumatic. No pharyngeal erythema. No thyromegaly. The patient has significant crowding of the posterior pharynx and the patient is a Mallampati class IV CARDIOVASCULAR: S1 and S2 present. No murmurs, rubs, or gallops. -PULMONARY: Chest is clear to auscultation, no wheezing or crackles. Scattered wheezing ABDOMEN: Soft, nontender, nondistended, normoactive bowel sounds. No palpable organomegaly. MUSCULOSKELETAL: No joint swelling or deformity. EXTREMITIES: No cyanosis, clubbing, or pedal edema. NEUROLOGICAL: Gross neurological examination did not reveal any focal deficits. SKIN: No rashes. no petechiae. - Labs CBC & Chem 7: 04/15/22 07:13 04/15/22 07:13 Labs: Abnormal Lab Results - Last 24 Hours (Table) 04/14/22 04/14/22 04/15/22 Range/Units 11:17 19:43 07:13 WBC (3.8-10.6) k/uL Hgb (13.0-17.5) gm/dL MCH (25.0-35.0) pg MCHC (31.0-37.0) g/dL RDW (11.5-15.5) % Plt Count (150-450) k/uL Neutrophils # (1.3-7.7) k/uL Sodium 136 L 133 L (137-145) mmol/L Potassium 2.9 L (3.5-5.1) mmol/L Chloride 86 L 86 L (98-107) mmol/L Carbon Dioxide 47 H* 41 H* (22-30) mmol/L BUN 25 H (9-20) mg/dL Glucose 149 H 127 H (74-99) mg/dL POC Glucose (mg/dL) 233 H (70-110) mg/dL Calcium 8.1 L 8.0 L (8.4-10.2) mg/dL ALT 57 H (4-49) U/L Alkaline Phosphatase 127 H (38-126) U/L Total Protein 6.1 L (6.3-8.2) g/dL 04/15/22 Range/Units 07:13 WBC 16.3 H (3.8-10.6) k/uL Hgb 12.3 L (13.0-17.5) gm/dL MCH 24.1 L (25.0-35.0) pg MCHC 28.9 L (31.0-37.0) g/dL RDW 17.9 H (11.5-15.5) % Plt Count 92 L (150-450) k/uL Neutrophils # 13.3 H (1.3-7.7) k/uL Sodium (137-145) mmol/L Potassium (3.5-5.1) mmol/L Chloride (98-107) mmol/L Carbon Dioxide (22-30) mmol/L BUN (9-20) mg/dL Glucose (74-99) mg/dL POC Glucose (mg/dL) (70-110) mg/dL Calcium (8.4-10.2) mg/dL ALT (4-49) U/L Alkaline Phosphatase (38-126) U/L Total Protein (6.3-8.2) g/dL Assessment and Plan Plan: Acute on chronic shortness of breath. The patient has known history of COPD. In addition, the patient had A. fib/flutter with RVR and the patient underwent cardioversion. His overall condition has improved and the patient has been adequately diuresed and his atrial fib/flutter has converted into normal sinus rhythm. The patient continued to diabetes with IV Lasix. There is improvement in volume status. He is already feeling much better after the RICKY cardioversion . Diamox was added to counteract metabolic alkalosis. The patient continues to be alkalotic. Serum bicarbs of 47. He is still being diuresed with a combination of Lasix and Zaroxolyn. The patient continues to improve. Currently is on room air oxygen. He was given Diamox. Serum bicarb is back to 41. A. fib/flutter with RVR, recovered post-cardioversion, remains on anticoagulation and the patient is also normal sinus rhythm. Obesity with a BMI of 31.1 and typical features of obstructive sleep apnea. Acute COPD exacerbation, improving Acute kidney injury, improving and her renal functions improved Chronic metabolic alkalosis secondary to chronic hypercapnic respiratory failure. Patient will need a sleep study to be done outpatient basis and he would benefit from a CPAP/BiPAP device History of amphetamine abuse History of alcoholism. Plan Titrate FiO2 to maintain a saturation above 90% currently on RA Continue DuoNeb about treatments [id number] Completed course of prednisone burst taper Continue diuretics with IV Lasix Given Diamox yesterday and a serum bicarb is improved Repeat labs from today were noted Outpatient PFT and pulmonary function test and repeat study Chest x-ray was noted and the patient has minimal small right-sided pleural effusion Acute kidney injury is recovered Continue metoprolol anticoagulation with Eliquis and this will be discussed with cardiology Smoking cessation counseling smoking cessation counseling will continue to follow, possible discharge in a.m.
[2022-04-15] MEDS: metOLazone 5 MG TAB PO SCH (16:49)
[2022-04-15 17:50] LABS: Potassium 3.9 mmol/L (3.5-5.1)
[2022-04-15] MEDS ORDERED: POTASSIUM CHLORIDE ER 20 MEQ TAB.ER PO SCH (18:00)
[2022-04-15] MEDS: MELATONIN 3 MG TABLET PO SCH (21:15)
[2022-04-16] MEDS: IPRATROPIUM-ALBUTEROL 3 ML NEB INHALATION SCH ×3 (08:43→15:49)
[2022-04-16] MEDS: BUDESONIDE 1 MG/2 ML NEBU INHALATION SCH (08:43)
[2022-04-16] MEDS: predniSONE 10 MG TAB PO SCH (09:59)
[2022-04-16] MEDS: METOPROLOL TARTRATE 50 MG TAB PO SCH (09:59)
[2022-04-16] MEDS: FAMOTIDINE 20 MG TAB PO SCH (09:59)
[2022-04-16] MEDS: FUROSEMIDE 10 MG/ML 4 ML VIAL IV SCH (10:00)
[2022-04-16] MEDS: PREGABALIN 100 MG CAP PO SCH (10:00)
[2022-04-16] MEDS: NICOTINE 21MG/24HR PATCH TRANSDERM SCH (10:00)
[2022-04-16] MEDS: APIXABAN 5 MG TAB PO SCH (10:17)
[2022-04-16 10:39] LABS: African American GFR (CKD) >90 (>60 ml/min/1.73 sqM); Blood Urea Nitrogen 24 mg/dL (9-20); Calcium 8.3 mg/dL (8.4-10.2); Chloride 84 mmol/L (98-107); Glucose 122 mg/dL (74-99); Magnesium 1.9 mg/dL (1.6-2.3); Non-African American GFR(CKD) >90 (>60 ml/min/1.73 sqM); Potassium 3.3 mmol/L (3.5-5.1); Sodium 132 mmol/L (137-145); Uric Acid 6.7 mg/dL (3.5-8.5)
[2022-04-16 10:46] LABS: Anion Gap 5 mmol/L
[2022-04-16 11:01] LABS: Carbon Dioxide 43 mmol/L (22-30)
[2022-04-16 11:03] VITALS: TEMP 98.4
[2022-04-16] MEDS ORDERED: Potassium Replacement Protocol 1 EACH MISC MISCELLANE PRN (11:04)
[2022-04-16 11:10] VITALS: BMI 38.6
[2022-04-16] MEDS ORDERED: POTASSIUM CHLORIDE ER 20 MEQ TAB.ER PO SCH (12:00)
[2022-04-16] MEDS ORDERED: POTASSIUM CHLORIDE ER 20 MEQ TAB.ER PO STA (12:03)
[2022-04-16] MEDS: metOLazone 5 MG TAB PO SCH (12:36)
[2022-04-16 12:51] VITALS: BP 154/72; RESP 14
--- NOTE | 2022-04-16 12:53 | P.PN ---
Subjective Progress Note Date: 04/16/22 HISTORY OF PRESENTING ILLNESS Patient is a pleasant 51-year-old male with history of COPD substance abuse hypertension amphetamine use and prior mild cardiomyopathy EF 4045% from November 2020. He presented secondary to shortness breath and was found to have elevated AST 297 ALT 465 bilirubin 3.9 INR 2.3 creatinine 1.4 with low sodium 1:30 and a potassium of 6.1. Patient was started on IV diuretics and added metoprolol for atrial flutter with RVR. Patient was somewhat difficult to control and therefore transferred to [facility] and had RICKY cardioversion 04/11. 04/12 RICKY yesterday showed EF 40-45% with no significant aortic disease and moderate mitral regurgitation and moderate tricuspid regurgitation. He underwent cardioversion and states he has been feeling the best he has in a number of years. Blood work today shows white blood cell count 13.4, hemoglobin 12.7, platelets 111, sodium 132, CO2 43, BUN 38, creatinine 1.0. He remains on 2 L nasal cannula. States he is feeling much better however still mild dyspnea and still 2+ lower extremity edema. 04/13 Patient seen and examined. Patient states his been having good urine output with Lasix. Some improvement lower extremity edema. Creatinine has remained stable at 1.0 04/14 Patient seen and examined. Continues to have good urine output. Bicarb mildly elevated up to 47. Has still been receiving Diamox. BUN 25, creatinine 0.9. Unclear if accurate ins and outs with only -50cc output over last 24 hrs. 04/15 Patient seen and examined. He admits to good urine output. At and after ins and outs however this morning -2 L. White blood cell count 16, platelets mildly decreased at 92, sodium 133, potassium 2.9, bicarb 41, creatinine 0.9. He did get dose of Zaroxolyn yesterday and this morning. 04/16 Patient is seen and examined. Patient states that he is urinating well and edema is improving. He is on Zaroxolyn, IV Lasix and did receive previous doses of Diamox. alarm security or surveillance monitor is sinus rhythm. Patient is using BiPAP intermittently as he feels necessary. Blood pressure 109/65. Sodium 132, potassium 3.3, chloride 84, CO2 43, BUN 24 and creatinine 0.87. PHYSICAL EXAMINATION Vital signs reviewed. CONSTITUTIONAL: No apparent distress. HEENT: Head is normocephalic. Pupils are equal, round. Sclerae anicteric. Mucous membranes of the mouth are moist. No JVD. No carotid bruit. CHEST EXAMINATION: Lungs are clear to auscultation. No chest wall tenderness is noted on palpation or with deep breathing. HEART EXAMINATION: Regular rate and rhythm. S1, S2 heard. No murmurs, gallops or rub. ABDOMEN: Soft, nontender. Positive bowel sounds. EXTREMITIES: 2+ peripheral pulses, 1+ lower extremity edema and no calf tenderness. NEUROLOGIC EXAMINATION: Patient is awake, alert and oriented x3. ASSESSMENT 1. Acute on chronic systolic heart failure EF 40-45%, still with significant right sided heart failure 2. History of COPD 3. Methamphetamine use 4. Hyponatremia related to volume overload 5. Moderate mitral regurgitation, moderate tricuspid regurgitation 6. Atrial flutter status post RICKY cardioversion 04/11 7. Elevated LFTs and coagulopathy possibly related to hepatic congestion 8. Acute kidney injury improved PLAN Continue patient on Zaroxolyn 10 mg daily Continue patient on Lopressor 100 mg 3 times daily, eliquis 5 mg twice daily Transition IV Lasix to oral Patient is cleared for discharge from cardiology in follow-up with Dr. Olivas as an outpatient in 1-2 weeks. Nurse practitioner note has been reviewed, I agree with documented findings and plan of care. Patient was seen and examined. Objective - Vital Signs Vital signs: Vital Signs Temp 96.5 F L 04/16/22 04:00 Pulse 73 04/16/22 04:00 Resp 12 04/16/22 04:00 BP 109/65 04/16/22 04:00 Pulse Ox 100 04/16/22 04:00 FiO2 40 04/16/22 08:45 Intake & Output 04/15/22 04/16/22 04/16/22 18:59 06:59 18:59 Output Total 1999 Balance -1999 Weight 118.7 kg Output: Urine 1999 Other: Voiding Method Urinal Urinal - Labs CBC & Chem 7: 04/15/22 07:13 04/16/22 10:11
--- NOTE | 2022-04-16 15:27 | P.PN ---
Subjective Progress Note Date: 04/16/22 Principal diagnosis: Refractory atrial flutter requiring cardioversion. This is a 51-year-old male patient of the transferred from [facility] to be treated for atrial flutter refractory to treatment. The patient underwent cardioversion by cardiology. The patient was admitted to [facility] on 04/02/2022. The patient came in there for worsening shortness of breath and he is known to have history of COPD, substance abuse and hypertension. The patient had a urine drug screen was positive for amphetamines and the patient apparently buys prescription amphetamine on the streets and use them regularly as he states that those medication helped him with the breathing. Initially, the patient was placed on a BiPAP as the patient had an acute hypo xic/hypercapnic respiratory failure. His workup showed a elevated proBNP level, echocardiogram showed left ventricular dysfunction with an ejection fraction of 40-45% and mild aortic regurgitation and the right ventricle systolic pressure of 32 mmHg. The patient's blood work also showed a component of an acute kidney injury. His creatinine was elevated. His LFTs were elevated. He had a CAT sc an of the abdomen and pelvis that showed some mild abdominal ascites and pleural effusions. No biliary ductal dilatation the gallbladder was normal. Computed tomography scan of the chest was done in the form of an angiogram and it showed no evidence of any pulmonary embolism. She'll benefit pleural effusion and ascites. The patient is a former drinker any projected approximately 11 years ago. He is known to have history of alcohol abuse in addition to substance abuse/narcotic addiction. During the hospitalization of [facility], the patient was seen by various consultants including cardiology. The patient was found to be persistent atrial flutter and for that reason the brittney watson got transferred to our hospital for further evaluation and treatment. Currently is on oxygen and he is on 6 L nasal cannula with a pulse ox of 98%. He is hemodynamically stable. Most recent blood work showing a white cell count 13.4 with a hemoglobin of 12.7 and a platelet count of 111. BUN is currently at 38 with a creatinine of 1.02 and a sodium level is at 132. Potassium levels at 3.6. A repeat chest x-ray was done and showed atelectatic changes lung base bilaterally. Some subpulmonic effusion on the right lung and the right hemidiaphragm is slightly elevated. No evidence of any airspace disease of pulmonary infiltrates noted. The patient is currently on DuoNeb about treatm ents [id number] on Pulmicort Respules, nicotine patch, prednisone burst taper currently on 30 mg as part of the burst taper. Note that a RICKY was done prior to cardioversion the patient was found to have no evidence of any intracardiac thrombus. There was moderate MR, moderate TR impaired LV function and EF of around 40-45%. He is a chronic THE PATIENT IS CURRENTLY SMOKING HALF TO 1 PACK OF CIGARETTES A DAY. IS A CHRONIC SMOKER. HE CONTINUES TO HAVE SOME MILD EDEMA LOWER EXTREMITIES BILATERALLY. THE PATIENT HAS NOT BEEN DIAGNOSED HAVING OBSTRUCTIVE SLEEP APNEA. ALTHOUGH THE PATIENT HAS THE FEATURES OTHERWISE SAY. HIS BMI 39.1. On today's evaluation of 04/13/2022, the patient is doing well. The patient is being diuresed. The patient is also in negative fluid balance as the patient is receiving 40 mg of IV Lasix every 12 hours. The patient presented to us with shortness of breath. He is known to have COPD. He also had atrial fibrillation/flutter underwent cardioversion. Since then, there has been significant improvement in his respiratory status an appointment with the patient is feeling that he is back to his baseline. He is currently on prednisone burst taper and is currently on 30 minutes by mouth daily. Blood work from today shows a BUN of 35 and a creatinine of 1.02. Sodium level is at 133 with a potassium level of 3.5. The patient remains on Diamox to counteract metabolic alkalosis. He is receiving Diamox to 50 mg by mouth twice a day. He is on long-term anticoagulation with Eliquis 5 mg by mouth twice a day. He will need an outpatient evaluation for sleep apnea. Is a chronic smoker. Lower extremity edema is improving and the patient is currently on Lasix 40 mg IV every 12 hours. On 04/14/2022, the patient is doing well. No specific complaints. He remains on diuretics with Lasix 40 mg IV every 12 hours. He is a negative fluid ba sandra. He is also taking Zaroxolyn 10 mg by mouth daily. On his blood work, the patient developed metabolic alkalosis and the serum bicarbs of 47. BUN is at 25 with a creatinine 0.9 and a sodium level is 136. The patient has a negative fluid balance of 794 mL over the past 24 hours. The patient remains on long-term anticoagulation with Eliquis. The patient will be given 2 doses of Diamox 500 mg IV over the next 24 hours. On today's evaluation of 04/15/2022, Emilio is being seen for a follow-up. Noted the patient was being diuresed with IV Lasix. He is in a negative fluid balance of at least 1.7 L since yesterday. He had developed significant metabolic alkalosis and a serum bicarb was as high as 47, Clinically, the patient is feeling well. Is currently on room air oxygen. Overnight is using the BiPAP. He is urinating very well. His metabolic alkalosis improved as the patient was given 2 doses of Diamox and a serum bicarb is down to 41. BUN is at 19 with a creatinine of 0.9. He remains on IV Lasix. Reevaluated today on 04/16/22, patient continues to improve, diuresing well with IV Lasix. Patient is on 2 L nasal cannula, and O2 sats at 95% bicarb is elevated secondary to aggressive diuresis it is 43 patient is on Diamox. Potassium is a bit low at 3.3 being corrected accordingly. Renal profile is normal. Patient remains in negative fluid balance, over 1999 and mild at the last 24 hours. Clinically the patient continues to improve and continues to do well Objective - Vital Signs Vital signs: Vital Signs Temp 98.4 F 04/16/22 12:35 Pulse 96 04/16/22 12:30 Resp 14 04/16/22 12:35 BP 154/72 04/16/22 12:35 Pulse Ox 95 04/16/22 12:35 FiO2 40 04/16/22 12:20 Intake & Output 04/15/22 04/16/22 04/16/22 18:59 06:59 18:59 Intake Total 240 Output Total 1999 Balance -1999 Weight 118.7 kg 118.7 kg Intake: Oral 240 Output: Urine 1999 Other: Voiding Method Urinal Urinal Urinal # Voids 2 - Exam Physical Exam: Revealed a 51-year-old white male obese in no distress. Head: Atraumatic, normocephalic. HEENT:[Neck is supple.] [No neck masses.] [No thyromegaly.] [No JVD.] Chest: [Clear throughout, no crackles, no rhonchi, no wheezes.] Cardiac Exam: [Normal S1 and S2, no S3 gallop, no murmur.] Abdomen: [Soft, nontender, no megaly, no rebound, no guarding, normal bowel sounds.] Extremities: [No clubbing, no edema, no cyanosis.] Neurological Exam: [No focal neurologic deficit.] Psychiatric: Normal mood, affect and normal mental status. Skin: No rashes. - Labs CBC & Chem 7: 04/15/22 07:13 04/16/22 10:11 Labs: Abnormal Lab Results - Last 24 Hours (Table) 04/16/22 Range/Units 10:11 Sodium 132 L (137-145) mmol/L Potassium 3.3 L (3.5-5.1) mmol/L Chloride 84 L (98-107) mmol/L Carbon Dioxide 43 H* (22-30) mmol/L BUN 24 H (9-20) mg/dL Glucose 122 H (74-99) mg/dL Calcium 8.3 L (8.4-10.2) mg/dL Assessment and Plan Assessment: Impression: Acute on chronic systolic congestive heart failure ejection fraction 40-45% History of underlying COPD Hypervolemic hyponatremia Moderate mitral regurgitation Atrial flutter requiring cardioversion 04/11 Hepatic congestion with elevated liver enzymes Recommendation: Continue diuretics Continue cardiac meds including Lopressor and continue eliquis Will clear the patient for discharge if cleared by other consultants. Follow-up on outpatient basis with Dr. Ruiz. Time with Patient: Less than 30
[2022-04-16] MEDS ORDERED: FUROSEMIDE 40 MG TAB PO SCH (16:00)
[2022-04-16 16:06] VITALS: PULSE 95
--- NOTE | 2022-04-16 19:25 | P.DS ---
Providers Date of admission: 04/11/22 12:55 Attending physician: Rashaad Flores Consults: 04/11/22 17:57 Consult Physician Stat Consulting Provider: Mustapha Olivas Consult Reason/Comments: RICKY and bubble, ? known to you Do you want consulting provider notified?: Yes 04/12/22 10:52 Consult Physician Routine Consulting Provider: Neftali Ruiz Consult Reason/Comments: hypoxia Do you want consulting provider notified?: Yes Primary care physician: Milton Arias Hospital Course: Diagnoses: Acute CHF exacerbation with systolic dysfunction with ejection fraction 40-45% Acute refractory atrial fibrillation's with RVR, status post cardioversion Acute hypoxemic hypercapnic respiratory failure Hypervolemic hyponatremia Moderate MR and TR Mild polyarthralgia Mild COPD exacerbation Hypertension Amphetamine abuse Obesity with BMI of 38.6 Hospital course: this is a pleasant 51 years old male who was transferred from [facility] to her hospital for cardioversion. He is a known history of COPD and amphetamine abuse. Presented to the hospital because of shortness of breath and dyspnea. Patient has been followed closely by pulmonary and cardiology service. Also ladies underwear operator evaluated the patient. Patient was on A. fib and RVR refractory to medical treatment including Cardizem drip and therefore he was transferred to our facility and he underwent RICKY showing no intracardiac throm bosis followed by successful cardioversion to sinus rhythm. Patient found to to have a fluid overload and acute on chronic kidney disease therefore his IV Lasix is switched him to metolazone and he tolerated that well, and on the day of discharge he feels much better (I haven't felt so good for a long time), he denies chest pain or dyspnea. No abdominal pain or vomiting. No urinary complaints. No headache or dizziness or weakness or numbness. He was saturating 87 on room air with walking and he qualified for home oxygen I discussed the case with the upper caser [place] who provided oxygen for him prior to discharge her request. Also he was started on Eliquis blood thinner for his A. fib, opaque is $60 and patient is agreeable with a one-month free coupon is provided for him. Patient will be discharged on tapered prednisone per my discussion with pulmonary team Patient was cleared for discharge by all consultants, ladies underwear operator, remote sensing surveyor and pulmonary services. Problems and management plan were discussed with the patient and he verbalized understanding and acceptance Patient was found stable and can be discharged home in guarded prognosis however he needs follow-up as an outpatient. Patient was instructed to follow up with PCP Dr. Arias within one week and patient agrees Patient was instructed to follow up with remote sensing surveyor Dr. Donovan in one week and he agrees Also he was instructed to follow up with pumper gauger Dr. Ruiz in 2-3 weeks and he agrees and asked staff to make appointments for him Physical exam -Gen: patient is a AAOx3, no distress. Obese CVS: S1-S2, RRR, no murmur Lungs: B/L CTA, no wheezing Abdomen: soft, no distention, no tenderness, positive bowel sounds Extremity: no leg edema or induration Time spent more than 35 minutes Plan - Discharge Summary Discharge Rx Participant: No New Discharge Prescriptions: New Apixaban [Eliquis] 5 mg PO BID #60 tab Potassium Chloride ER [K-Dur 10] 10 meq PO DAILY #30 tab Furosemide [Lasix] 40 mg PO BID@0900,1600 #60 tab metOLazone [Zaroxolyn] 10 mg PO DAILY #60 tab predniSONE 0 mg PO DIRECTED #24 tab Continue LORazepam [Ativan] 0.5 mg PO Q6HR PRN PRN Reason: Agitation Pregabalin [Lyrica] 100 mg PO BID Nicotine 21Mg/24Hr Patch [Habitrol] 1 patch TRANSDERM DAILY Melatonin 6 mg PO HS Famotidine [Pepcid] 20 mg PO BID Budesonide [Pulmicort] 1 mg INHALATION RT-BID Ipratropium-Albuterol Nebulize [Duoneb 0.5 mg-3 mg/3 ml Soln] 3 ml INHALATION RT-Q6H Ipratropium Nebulized [Atrovent Nebulized 0.2 MG/ML] 0.5 mg INHALATION RT-Q6H Albuterol Nebulized [Ventolin Nebulized] 2.5 mg INHALATION RT-Q6H Metoprolol Tartrate [Lopressor] 100 mg PO TID acetaZOLAMIDE [Diamox] 250 mg PO BID Metoclopramide [Reglan] 10 mg PO Q6H PRN PRN Reason: Nausea Discontinued predniSONE [Deltasone] 30 mg PO DAILY Discharge Medication List Albuterol Nebulized [Ventolin Nebulized] 2.5 mg INHALATION RT-Q6H 04/11/22 [History] Budesonide [Pulmicort] 1 mg INHALATION RT-BID 04/11/22 [History] Famotidine [Pepcid] 20 mg PO BID 04/11/22 [History] Ipratropium Nebulized [Atrovent Nebulized 0.2 MG/ML] 0.5 mg INHALATION RT-Q6H 04/11/22 [History] Ipratropium-Albuterol Nebulize [Duoneb 0.5 mg-3 mg/3 ml Soln] 3 ml INHALATION R T-Q6H 04/11/22 [History] LORazepam [Ativan] 0.5 mg PO Q6HR PRN 04/11/22 [History] Melatonin 6 mg PO HS 04/11/22 [History] Metoclopramide [Reglan] 10 mg PO Q6H PRN 04/11/22 [History] Metoprolol Tartrate [Lopressor] 100 mg PO TID 04/11/22 [History] Nicotine 21Mg/24Hr Patch [Habitrol] 1 patch TRANSDERM DAILY 04/11/22 [History] Pregabalin [Lyrica] 100 mg PO BID 04/11/22 [History] acetaZOLAMIDE [Diamox] 250 mg PO BID 04/11/22 [History] Apixaban [Eliquis] 5 mg PO BID #60 tab 04/13/22 [Rx] Furosemide [Lasix] 40 mg PO BID@0900,1600 #60 tab 04/16/22 [Rx] Potassium Chloride ER [K-Dur 10] 10 meq PO DAILY #30 tab 04/16/22 [Rx] metOLazone [Zaroxolyn] 10 mg PO DAILY #60 tab 04/16/22 [Rx] predniSONE 0 mg PO DIRECTED #24 tab 04/16/22 [Rx] Follow up Appointment(s)/Referral(s): Milton Arias MD [Primary Care Provider] - 1 Week (Office closed at time of discharge.) Mustapha Olivas MD [STAFF PHYSICIAN] - 1 Week (heart doctor To be a new patient, office will call with an appointment date and time.) [facility] [NON-STAFF] - Neftali Ruiz MD [STAFF PHYSICIAN] - 06/07/22 2:30 pm (lung doctor Office did put patient on a cancellation list and if an appointment becomes available sooner the office will call.) Patient Instructions/Handouts: Heart Failure (DC) Activity/Diet/Wound Care/Special Instructions: Patient will need home oxygen to manage copd and chf heart healthy diet activity is restricted till you see your doctor Discharge Disposition: HOME WITH HOME HEALTH SERVICES
--- NOTE | 2022-04-19 10:13 | CDI ---
Documentation Clarification Form Date: 04/19/22 From: Earlene Mendoza Admit Date: 04/11/2022 12:55:00 PM Patient Name: Emilio Leonard Visit Number: [id number] Discharge Date: 04/16/2022 05:21:00 PM ATTENTION: The Clinical Documentation Specialists (CDI) and [facility] Coding Staff appreciate your assistance in clarifying documentation. Please respond to the clarification below the line at the bottom and electronically sign. The CDI & [facility] Coding staff will review the response and follow-up if needed. Please note: Queries are made part of the Legal Health Record. If you have any questions, please contact the author of this message via ITS. Dr. Mustapha Olivas, Atrial Flutter is documented in your procedure note and Dr Hobson consult. Additional clarification regarding the type of Atrial Flutter is requested. History/Risk factors: HTN w acute on chronic systolic CHF and CKD, acute hypoxic & hypercapnia respiratory failure, ascites Clinical Indicators: Patient was on A. fib/A. flutter and RVR refractory to medical treatment including Cardizem drip and therefore he was transferred to our facility and he underwent RICKY showing no intracardiac thrombosis followed by successful cardioversion to sinus rhythm. EKG/telemetry: Atrial flutter with RVR refractory to medical treatment Treatment: RICKY w cardioversion, continue diuresis and optimize heart failure regiment, discontinue methamphetimes Please clarify the type of Atrial Flutter, if known: [ ] Typical/Type I [ ] Atypical/Type II [ ] Other, please specify [ ] Unable to determine MTDD
== END 2022-04-16 17:21 | disposition home or self-care (01) | DRG 308 ==
LOC: 3SCARD 12:55
PROVIDERS: ADMIT Hospitalist; ATTEND Hospitalist
PROC: 5A09557 Assistance with Respiratory Ventilation, Greater than 96 Consecutive Hours, Continuous Positive Airway Pressure (ICD-10-PCS; 2022-04-11)
PROC: B246ZZ4 Ultrasonography of Right and Left Heart, Transesophageal (ICD-10-PCS; principal; 2022-04-11 14:30)
PROC: 5A2204Z Restoration of Cardiac Rhythm, Single (ICD-10-PCS; principal; 2022-04-11 14:30)
DX: I48.92 Unspecified atrial flutter (principal); I50.23 Acute on chronic systolic (congestive) heart failure; J96.01 Acute respiratory failure with hypoxia; J96.02 Acute respiratory failure with hypercapnia; I13.0 Hypertensive heart and chronic kidney disease with heart failure and stage 1 through stage 4 chronic kidney disease, or unspecified chronic kidney disease; R18.8 Other ascites; E87.3 Alkalosis; E87.1 Hypo-osmolality and hyponatremia; J44.1 Chronic obstructive pulmonary disease with (acute) exacerbation; I42.9 Cardiomyopathy, unspecified; F15.10 Other stimulant abuse, uncomplicated; F10.21 Alcohol dependence, in remission; F11.21 Opioid dependence, in remission; E66.01 Morbid (severe) obesity due to excess calories; I48.91 Unspecified atrial fibrillation; Z28.310 Unvaccinated for COVID-19; K76.1 Chronic passive congestion of liver; N18.9 Chronic kidney disease, unspecified; G47.33 Obstructive sleep apnea (adult) (pediatric); I08.1 Rheumatic disorders of both mitral and tricuspid valves; R79.89 Other specified abnormal findings of blood chemistry; Z68.39 Body mass index [BMI] 39.0-39.9, adult; F17.210 Nicotine dependence, cigarettes, uncomplicated; Z71.6 Tobacco abuse counseling; Z79.51 Long term (current) use of inhaled steroids; Z79.899 Other long term (current) drug therapy; Z71.3 Dietary counseling and surveillance
CPT/HCPCS: 71045; 80048; 80053; 83735; 84132; 84550; 85025; 92960; 93005; 93312; 93320; 93325; 94640; 94660; 94760

== ENCOUNTER 2022-04-27 13:01 | Inpatient (IN) | payer OTHER ==
[2022-04-27] MEDS ORDERED: DILTIAZEM DRIP BOLUS FROM BAG 1 MG SOLN IV ONE (13:35)
--- NOTE | 2022-04-27 13:38 | ED ---
General Adult HPI - General Chief complaint: Shortness of Breath Stated complaint: JOSEPHINE Time Seen by Provider: 04/27/22 13:23 Source: patient, RN notes reviewed Mode of arrival: ambulatory Limitations: no limitations - History of Present Illness Initial comments: Patient is a pleasant 51-year-old male presenting to the emergency department with concerns with difficulty in breathing. Symptoms have progressively the past couple of days. Patient was in the hospital a couple weeks ago with congestive heart failure and atrial fibrillation. Patient does have history of COPD however that is not similar to this. Patient does have cough with occasional estrella sputum. No fevers. Patient does have some edema still. Patient states he is on furosemide. - Related Data Home Medications Medication Instructions Recorded Confirmed Albuterol Nebulized [Ventolin 2.5 mg INHALATION RT-Q6H 04/11/22 04/11/22 Nebulized] Budesonide [Pulmicort] 1 mg INHALATION RT-BID 04/11/22 04/11/22 Famotidine [Pepcid] 20 mg PO BID 04/11/22 04/11/22 Ipratropium Nebulized [Atrovent 0.5 mg INHALATION RT-Q6H 04/11/22 04/11/22 Nebulized 0.2 MG/ML] Ipratropium-Albuterol Nebulize 3 ml INHALATION RT-Q6H 04/11/22 04/11/22 [Duoneb 0.5 mg-3 mg/3 ml Soln] LORazepam [Ativan] 0.5 mg PO Q6HR PRN 04/11/22 04/11/22 Melatonin 6 mg PO HS 04/11/22 04/11/22 Metoclopramide [Reglan] 10 mg PO Q6H PRN 04/11/22 04/11/22 Metoprolol Tartrate [Lopressor] 100 mg PO TID 04/11/22 04/11/22 Nicotine 21Mg/24Hr Patch [Habitrol] 1 patch TRANSDERM DAILY 04/11/22 04/11/22 Pregabalin [Lyrica] 100 mg PO BID 04/11/22 04/11/22 acetaZOLAMIDE [Diamox] 250 mg PO BID 04/11/22 04/11/22 Previous Rx's Medication Instructions Recorded Apixaban [Eliquis] 5 mg PO BID #60 tab 04/13/22 Furosemide [Lasix] 40 mg PO BID@0900,1600 #60 tab 04/16/22 Potassium Chloride ER [K-Dur 10] 10 meq PO DAILY #30 tab 04/16/22 metOLazone [Zaroxolyn] 10 mg PO DAILY #60 tab 04/16/22 predniSONE 0 mg PO DIRECTED #24 tab 04/16/22 Allergies Allergy/AdvReac Type Severity Reaction Status Date / Time No Known Allergies Allergy Verified 08/06/18 01:15 Review of Systems ROS Statement: Those systems with pertinent positive or pertinent negative responses have been documented in the HPI. ROS Other: All systems not noted in ROS Statement are negative. Constitutional: Denies: fever Eyes: Denies: eye pain ENT: Denies: ear pain Respiratory: Reports: cough, dyspnea Cardiovascular: Reports: edema. Denies: chest pain Endocrine: Reports: fatigue Gastrointestinal: Denies: abdominal pain Genitourinary: Denies: dysuria Musculoskeletal: Denies: back pain Skin: Denies: rash Neurological: Denies: weakness Past Medical History Past Medical History: Atrial Fibrillation, COPD, Hypertension History of Any Multi-Drug Resistant Organisms: None Reported Additional Past Surgical History / Comment(s): RICKY 04-11-2022 Smoking Status: Current every day smoker Past Alcohol Use History: None Reported Past Drug Use History: None Reported - Past Family History Mother Family Medical History: Dementia Father Family Medical History: Cancer General Exam Limitations: no limitations General appearance: alert Eye exam: Present: normal appearance Neck exam: Present: normal inspection Respiratory exam: Present: rales Cardiovascular Exam: Present: tachycardia, irregular rhythm GI/Abdominal exam: Present: soft. Absent: tenderness Extremities exam: Present: pedal edema (+1 bilateral). Absent: calf tenderness Neurological exam: Present: alert Psychiatric exam: Present: normal affect, normal mood Skin exam: Present: cyanosis (Mild cyanotic appearance the lips) Course Vital Signs 04/27/22 13:05 Temperature 98.7 F Pulse Rate 64 Respiratory 26 H Rate Blood Pressure 110/45 O2 Sat by Pulse 88 L Oximetry EKG Findings - EKG Results: EKG: interpreted by ERMD (Nonspecific ST-T), normal axis, normal QRS EKG shows: tachycardia, atrial fibrillation Medical Decision Making - Medical Decision Making Patient reevaluated and updated. Case was discussed with Dr. Gaytan, who will admit covering Dr. Arias. Cardiology will be placed on consult. Patient currently is anticoagulated with eliquis - Lab Data Result diagrams: 04/27/22 13:45 04/27/22 13:45 Lab Results 04/27/22 04/27/22 04/27/22 Range/Units 13:45 13:45 13:45 WBC 11.0 H (3.8-10.6) k/uL RBC 5.53 (4.30-5.90) m/uL Hgb 13.6 (13.0-17.5) gm/dL Hct 43.4 (39.0-53.0) % MCV 78.5 L (80.0-100.0) fL MCH 24.7 L (25.0-35.0) pg MCHC 31.4 (31.0-37.0) g/dL RDW 20.9 H (11.5-15.5) % Plt Count 110 L (150-450) k/uL MPV 9.1 Neutrophils % 78 % Lymphocytes % 13 % Monocytes % 4 % Eosinophils % 2 % Basophils % 1 % Neutrophils # 8.6 H (1.3-7.7) k/uL Lymphocytes # 1.4 (1.0-4.8) k/uL Monocytes # 0.5 (0-1.0) k/uL Eosinophils # 0.2 (0-0.7) k/uL Basophils # 0.1 (0-0.2) k/uL Hypochromasia Marked Poikilocytosis Slight Anisocytosis Moderate Microcytosis Moderate PT 11.8 (9.0-12.0) sec INR 1.1 (<1.2) APTT 24.0 (22.0-30.0) sec Sodium 136 L (137-145) mmol/L Potassium 3.3 L (3.5-5.1) mmol/L Chloride 91 L (98-107) mmol/L Carbon Dioxide 39 H (22-30) mmol/L Anion Gap 6 mmol/L BUN 36 H (9-20) mg/dL Creatinine 0.79 (0.66-1.25) mg/dL Est GFR (CKD-EPI)AfAm >90 (>60 ml/min/1.73 sqM) Est GFR (CKD-EPI)NonAf >90 (>60 ml/min/1.73 sqM) Glucose 104 H (74-99) mg/dL Calcium 9.1 (8.4-10.2) mg/dL Magnesium 1.7 (1.6-2.3) mg/dL Total Bilirubin 0.9 (0.2-1.3) mg/dL AST 54 (17-59) U/L ALT 97 H (4-49) U/L Alkaline Phosphatase 157 H (38-126) U/L NT-Pro-B Natriuret Pep pg/mL Total Protein 6.8 (6.3-8.2) g/dL Albumin 3.9 (3.5-5.0) g/dL Free T4 1.54 (0.78-2.19) ng/dL Free T3 pg/mL 4.2 (2.8-5.3) pg/ml 04/27/22 Range/Units 13:45 WBC (3.8-10.6) k/uL RBC (4.30-5.90) m/uL Hgb (13.0-17.5) gm/dL Hct (39.0-53.0) % MCV (80.0-100.0) fL MCH (25.0-35.0) pg MCHC (31.0-37.0) g/dL RDW (11.5-15.5) % Plt Count (150-450) k/uL MPV Neutrophils % % Lymphocytes % % Monocytes % % Eosinophils % % Basophils % % Neutrophils # (1.3-7.7) k/uL Lymphocytes # (1.0-4.8) k/uL Monocytes # (0-1.0) k/uL Eosinophils # (0-0.7) k/uL Basophils # (0-0.2) k/uL Hypochromasia Poikilocytosis Anisocytosis Microcytosis PT (9.0-12.0) sec INR (<1.2) APTT (22.0-30.0) sec Sodium (137-145) mmol/L Potassium (3.5-5.1) mmol/L Chloride (98-107) mmol/L Carbon Dioxide (22-30) mmol/L Anion Gap mmol/L BUN (9-20) mg/dL Creatinine (0.66-1.25) mg/dL Est GFR (CKD-EPI)AfAm (>60 ml/min/1.73 sqM) Est GFR (CKD-EPI)NonAf (>60 ml/min/1.73 sqM) Glucose (74-99) mg/dL Calcium (8.4-10.2) mg/dL Magnesium (1.6-2.3) mg/dL Total Bilirubin (0.2-1.3) mg/dL AST (17-59) U/L ALT (4-49) U/L Alkaline Phosphatase (38-126) U/L NT-Pro-B Natriuret Pep 2100 pg/mL Total Protein (6.3-8.2) g/dL Albumin (3.5-5.0) g/dL Free T4 (0.78-2.19) ng/dL Free T3 pg/mL (2.8-5.3) pg/ml - Radiology Data Interpreted by me: Chest x-ray shows cardiomegaly and interstitial edema Critical Care Time Critical Care Time: Yes Total Critical Care Time: 33 Disposition Clinical Impression: CHF (congestive heart failure), Atrial fibrillation with RVR Disposition: ADMITTED IP TO THIS HOSP Is patient prescribed a controlled substance at d/c from ED?: No Referrals: Milton Arias MD [Primary Care Provider] - 1-2 days Time of Disposition: 14:34
[2022-04-27] MEDS: DILTIAZEM 125 MG in SODIUM CHLORIDE 0.9% 100 ML IV SCH (14:00)
[2022-04-27 14:06] LABS: Anisocytosis Moderate; Basophils # (A) 0.1 k/uL (0-0.2); Basophils % (A) 1 %; Eosinophils # (A) 0.2 k/uL (0-0.7); Eosinophils % (A) 2 %; HCT 43.4 % (39.0-53.0); HGB 13.6 gm/dL (13.0-17.5); Hypochromasia Marked; Lymphocytes # (A) 1.4 k/uL (1.0-4.8); Lymphocytes % (A) 13 %; MCH 24.7 pg (25.0-35.0); MCHC 31.4 g/dL (31.0-37.0); MCV 78.5 fL (80.0-100.0); Mean Platelet Volume 9.1; Microcytosis Moderate; Monocytes # (A) 0.5 k/uL (0-1.0); Monocytes % (A) 4 %; Neutrophils # (A) 8.6 k/uL (1.3-7.7); Neutrophils % (A) 78 %; Platelet Count 110 k/uL (150-450); Poikilocytosis Slight; RBC 5.53 m/uL (4.30-5.90); RDW 20.9 % (11.5-15.5)
[2022-04-27 14:15] LABS: ALT 97 U/L (4-49); AST 54 U/L (17-59); African American GFR (CKD) >90 (>60 ml/min/1.73 sqM); Albumin 3.9 g/dL (3.5-5.0); Alkaline Phosphatase 157 U/L (38-126); Anion Gap 6 mmol/L; Blood Urea Nitrogen 36 mg/dL (9-20); Calcium 9.1 mg/dL (8.4-10.2); Carbon Dioxide 39 mmol/L (22-30); Chloride 91 mmol/L (98-107); Glucose 104 mg/dL (74-99); INR 1.1 (<1.2); Magnesium 1.7 mg/dL (1.6-2.3); Non-African American GFR(CKD) >90 (>60 ml/min/1.73 sqM); Potassium 3.3 mmol/L (3.5-5.1); Prothrombin Time 11.8 sec (9.0-12.0); Sodium 136 mmol/L (137-145); Total Bilirubin 0.9 mg/dL (0.2-1.3); Total Protein 6.8 g/dL (6.3-8.2)
[2022-04-27] MEDS ORDERED: LORazepam 1 MG TAB PO STA (14:19)
--- NOTE | 2022-04-27 14:20 | XR ---
EXAMINATION TYPE: XR chest 2V DATE OF EXAM: 04/27/2022 COMPARISON: Chest x-ray April 15, 2022 HISTORY: Dysrhythmia. TECHNIQUE: Frontal and lateral views of the chest are obtained. FINDINGS: There is small right pleural effusion. Bibasilar opacities are present. The cardiac silhou ette size is stable and enlarged. Mild interstitial edema. The osseous structures are intact. IMPRESSION: Suspect CHF exacerbation and there is cardiomegaly with mild interstitial edema and smal l right pleural effusion. Bibasilar opacities could reflect acute infiltrate and/or atelectasis.
[2022-04-27 14:31] LABS: T4, Free (Free Thyroxine) 1.54 ng/dL (0.78-2.19)
[2022-04-27 18:32] LABS: Glucose,Whole Blood 196 mg/dL (70-110)
[2022-04-27] MEDS: FUROSEMIDE 10 MG/ML 4 ML VIAL IV SCH (18:49)
[2022-04-27] MEDS: NITROGLYCERIN OINT 1 INCH/GM PACKET TOPICAL SCH (18:50)
[2022-04-27] MEDS ORDERED: ALBUTEROL NEBULIZED 2.5 MG/3 ML INHALATION PRN (20:13)
--- NOTE | 2022-04-27 20:19 | P.HPIM ---
History of Present Illness H&P Date: 04/27/22 Chief Complaint: Shortness of breath 51-year-old male, history of hypertension, COPD, atrial fibrillation, presenting to the emergency department with concerns with difficulty in breathing. Symptoms have progressively the past couple of days. Patient was in the hospital a couple weeks ago with congestive heart failure and atrial fibrillation. Patient does have history of COPD however that is not similar to this. Patient does have cough with occasional estrella sputum. No fevers. Patient does have some edema still. Patient states he is on furosemide. Workup including EKG completed in ED reveals atrial fibrillation with RVR with nonspecific ST and T wave changes Chest x-ray reveals cardiomegaly and interstitial edema Blood work reveals sodium 136, potassium 3.3, BUN/creatinine of 36/0.79, WBC 11.0, hemoglobin of 13.6, and platelet count of 110 Review of Systems REVIEW OF SYSTEMS: CONSTITUTIONAL: No fever, no malaise, no fatigue. HEENT: No recent visual problems or hearing problems. Denied any sore throat. CARDIOVASCULAR: No chest pain, orthopnea, PND, no palpitations, no syncope. PULMONARY: No shortness of breath, no cough, no hemoptysis. GASTROINTESTINAL: No diarrhea, no nausea, no vomiting, no abdominal pain. NEUROLOGICAL: No headaches, no weakness, no numbness. HEMATOLOGICAL: Denies any bleeding or petechiae. GENITOURINARY: Denies any burning micturition, frequency, or urgency. MUSCULOSKELETAL/RHEUMATOLOGICAL: Denies any joint pain, swelling, or any muscle pain. ENDOCRINE: Denies any polyuria or polydipsia. The rest of the 14-point review of systems is negative. Past Medical History Past Medical History: Atrial Fibrillation, COPD, Hypertension History of Any Multi-Drug Resistant Organisms: None Reported Additional Past Surgical History / Comment(s): RICKY 04-11-2022 Smoking Status: Current every day smoker Past Alcohol Use History: None Reported Past Drug Use History: None Reported - Past Family History Mother Family Medical History: Dementia Father Family Medical History: Cancer Medications and Allergies Home Medications Medication Instructions Recorded Confirmed Type Famotidine [Pepcid] 20 mg PO BID 04/11/22 04/27/22 History Ipratropium-Albuterol Nebulize 3 ml INHALATION RT-Q6H 04/11/22 04/27/22 History [Duoneb 0.5 mg-3 mg/3 ml Soln] Nicotine 21Mg/24Hr Patch [Habitrol] 1 patch TRANSDERM DAILY 04/11/22 04/27/22 History Pregabalin [Lyrica] 100 mg PO BID 04/11/22 04/27/22 History Apixaban [Eliquis] 5 mg PO BID #60 tab 04/13/22 04/27/22 Rx Furosemide [Lasix] 40 mg PO BID@0900,1600 #60 tab 04/16/22 04/27/22 Rx Potassium Chloride ER [K-Dur 10] 10 meq PO DAILY #30 tab 04/16/22 04/27/22 Rx Albuterol Sulfate [Ventolin HFA] 2 puff INHALATION RT-Q4H PRN 04/27/22 04/27/22 History Budesonide [Pulmicort] 0.5 mg INHALATION RT-BID 04/27/22 04/27/22 History Chlorthalidone [Hygroton] 25 mg PO DAILY 04/27/22 04/27/22 History atenoloL 100 mg PO DAILY 04/27/22 04/27/22 History metOLazone [Zaroxolyn] 10 mg PO DAILY 04/27/22 04/27/22 History predniSONE See Taper PO DIRECTED 04/27/22 04/27/22 History Allergies Allergy/AdvReac Type Severity Reaction Status Date / Time No Known Allergies Allergy Verified 04/27/22 15:00 Physical Exam Vitals: Vital Signs Temp Pulse Resp BP Pulse Ox 04/27/22 13:05 98.7 F 64 26 H 110/45 88 L Intake and Output 04/27/22 04/27/22 04/27/22 06:59 14:59 22:59 Other: Weight 113.398 kg - Constitutional General appearance: Present: average body habitus, cooperative, no acute distress - EENT Eyes: Present: anicteric sclerae, EOMI, PERRLA, normal appearance ENT: Present: hearing grossly normal, normal oropharynx Ears: bilateral: normal - Neck Neck: Present: normal ROM. Absent: lymphadenopathy, rigidity, thyromegaly Carotids: negative: bruit present Thyroid: bilateral: normal size, negative: enlarged, nodule - Respiratory Respiratory: bilateral: CTA, negative: rales, rhonchi, wheezing - Cardiovascular Rhythm: regular Heart sounds: normal: S1, S2 Abnormal Heart Sounds: Absent: systolic murmur, diastolic murmur - Gastrointestinal General gastrointestinal: Present: normal bowel sounds, soft. Absent: distended, organomegaly, tenderness - Genitourinary Genitourinary Comment(s): deferred - Integumentary Integumentary: Present: normal turgor. Absent: jaundiced, rash, ulcer - Neurologic Neurologic: Present: CNII-XII intact. Absent: focal deficits - Musculoskeletal Musculoskeletal: Present: gait normal, strength equal bilaterally - Psychiatric Psychiatric: Present: A&O x's 3, appropriate affect, intact judgment & insight Results CBC & Chem 7: 04/27/22 13:45 12 13:45 Labs: Abnormal Lab Results - Last 24 Hours (Table) 04/27/22 04/27/22 Range/Units 13:45 13:45 WBC 11.0 H (3.8-10.6) k/uL MCV 78.5 L (80.0-100.0) fL MCH 24.7 L (25.0-35.0) pg RDW 20.9 H (11.5-15.5) % Plt Count 110 L (150-450) k/uL Neutrophils # 8.6 H (1.3-7.7) k/uL Sodium 136 L (137-145) mmol/L Potassium 3.3 L (3.5-5.1) mmol/L Chloride 91 L (98-107) mmol/L Carbon Dioxide 39 H (22-30) mmol/L BUN 36 H (9-20) mg/dL Glucose 104 H (74-99) mg/dL ALT 97 H (4-49) U/L Alkaline Phosphatase 157 H (38-126) U/L Assessment and Plan Assessment: 1. Acute exacerbation CHF - Patient has been placed on Lasix 40 mg IV every 8 hours; chlorthalidone 25 mg daily; metolazone 10 mg daily - We will monitor strict LEYLA's and daily weights; low-salt and fluid restricted diet 2. Atrial fibrillation with RVR; patient has been placed on IV Cardizem infusion at a rate of 10 mg per hour with plans to titrate as needed; remains anticoagulated on Eliquis 5 mg twice a day 3. Mild MARIANA; we will hold off on IV fluid hydration given CHF exacerbation; we will monitor renal function and electrolytes, strict LEYLA's and daily weights; avoid nephrotoxins and hypotension 4. Hypertension; stable on Cardizem, Lasix 5. COPD; not in exacerbation; we will continue with home inhaler therapy in form of Pulmicort twice a day and albuterol inhaler every 4 hours when necessary and DuoNeb nebulizer treatment 4 times a day 6. Peripheral neuropathy; Lyrica 100 mg twice a day DVT prophylaxis; SCDs/ Eliquis CODE STATUS; full code
[2022-04-27] MEDS: FAMOTIDINE 20 MG TAB PO SCH (22:36)
[2022-04-27] MEDS: APIXABAN 5 MG TAB PO SCH (22:36)
[2022-04-28] MEDS: IPRATROPIUM-ALBUTEROL 3 ML NEB INHALATION SCH ×5 (01:32→19:21)
[2022-04-28] MEDS: DILTIAZEM 125 MG in SODIUM CHLORIDE 0.9% 100 ML IV SCH ×2 (01:57→16:39)
[2022-04-28] MEDS: FUROSEMIDE 10 MG/ML 4 ML VIAL IV SCH ×4 (02:03→23:23)
[2022-04-28] MEDS: PREGABALIN 100 MG CAP PO SCH ×3 (03:06→20:25)
[2022-04-28] MEDS: NITROGLYCERIN OINT 1 INCH/GM PACKET TOPICAL SCH ×5 (03:06→20:26)
[2022-04-28] MEDS: BUDESONIDE 0.5 MG/2 ML NEBU INHALATION SCH ×2 (07:50→19:21)
[2022-04-28 07:55] LABS: Anisocytosis Moderate; Basophils # (A) 0.1 k/uL (0-0.2); Basophils % (A) 1 %; Eosinophils # (A) 0.2 k/uL (0-0.7); Eosinophils % (A) 2 %; HCT 44.5 % (39.0-53.0); HGB 13.3 gm/dL (13.0-17.5); Hypochromasia Marked; Lymphocytes # (A) 1.1 k/uL (1.0-4.8); Lymphocytes % (A) 12 %; MCH 23.8 pg (25.0-35.0); MCHC 29.9 g/dL (31.0-37.0); MCV 79.3 fL (80.0-100.0); Mean Platelet Volume 10.3; Microcytosis Slight; Monocytes # (A) 0.6 k/uL (0-1.0); Monocytes % (A) 6 %; Neutrophils # (A) 7.5 k/uL (1.3-7.7); Neutrophils % (A) 78 %; Platelet Count 126 k/uL (150-450); RBC 5.61 m/uL (4.30-5.90); RDW 20.5 % (11.5-15.5); WBC 9.6 k/uL (3.8-10.6)
[2022-04-28 08:21] LABS: African American GFR (CKD) >90 (>60 ml/min/1.73 sqM); Blood Urea Nitrogen 40 mg/dL (9-20); Calcium 8.6 mg/dL (8.4-10.2); Chloride 87 mmol/L (98-107); Glucose 107 mg/dL (74-99); Non-African American GFR(CKD) >90 (>60 ml/min/1.73 sqM); Potassium 3.5 mmol/L (3.5-5.1); Sodium 137 mmol/L (137-145)
--- NOTE | 2022-04-28 08:22 | P.CRDCN ---
History of Present Illness Consult date: 04/28/22 Chief complaint: Shortness of breath History of present illness: The patient is a pleasant 51-year-old gentleman with a past medical history sign ificant for chronic obstructive pulmonary disease, nonischemic cardiomyopathy, paroxysmal atrial fibrillation, as well as multiple comorbid conditions. He presented to the hospital complaining of increasing shortness of breath for the last few days. The shortness of breath was not associated with any chest pain or chest discomfort but was associated with scar not productive of any sputum. No lower extubated edema. No dizziness or lightheadedness and no presyncope or syncope. He was found to be in A. fib with RVR and subsequently he was started on Cardizem IV. Beside that he underwent further investigation including chest x-ray showed pulmonary vascular congestion. The patient was started on Lasix IV. NT proBNP was about 2000. The patient was seen and evaluated this morning. He remains in atrial fibrillation with overall controlled heart rate. Currently he is on atenolol 100 mg by mouth daily. He is also on oral anticoagulation which was continued. He seems to be slightly hypervolemic with mild bilateral lower extremities edema and diminished breathing sounds bilaterally. The last echo showed an ejection fraction between 40-45%. Past Medical History Past Medical History: Atrial Fibrillation, COPD, Hypertension History of Any Multi-Drug Resistant Organisms: None Reported Additional Past Surgical History / Comment(s): RICKY 04-11-2022 Smoking Status: Current every day smoker Past Alcohol Use History: None Reported Past Drug Use History: None Reported - Past Family History Mother Family Medical History: Dementia Father Family Medical History: Cancer Medications and Allergies Home Medications Medication Instructions Recorded Confirmed Type Famotidine [Pepcid] 20 mg PO BID 04/11/22 04/27/22 History Ipratropium-Albuterol Nebulize 3 ml INHALATION RT-Q6H 04/11/22 04/27/22 History [Duoneb 0.5 mg-3 mg/3 ml Soln] Nicotine 21Mg/24Hr Patch [Habitrol] 1 patch TRANSDERM DAILY 04/11/22 04/27/22 History Pregabalin [Lyrica] 100 mg PO BID 04/11/22 04/27/22 History Apixaban [Eliquis] 5 mg PO BID #60 tab 04/13/22 04/27/22 Rx Furosemide [Lasix] 40 mg PO BID@0900,1600 #60 tab 04/16/22 04/27/22 Rx Potassium Chloride ER [K-Dur 10] 10 meq PO DAILY #30 tab 04/16/22 04/27/22 Rx Albuterol Sulfate [Ventolin HFA] 2 puff INHALATION RT-Q4H PRN 04/27/22 04/27/22 History Budesonide [Pulmicort] 0.5 mg INHALATION RT-BID 04/27/22 04/27/22 History Chlorthalidone [Hygroton] 25 mg PO DAILY 04/27/22 04/27/22 History atenoloL 100 mg PO DAILY 04/27/22 04/27/22 History metOLazone [Zaroxolyn] 10 mg PO DAILY 04/27/22 04/27/22 History predniSONE See Taper PO DIRECTED 04/27/22 04/27/22 History Allergies Allergy/AdvReac Type Severity Reaction Status Date / Time No Known Allergies Allergy Verified 04/27/22 15:00 Physical Exam Vitals: Vital Signs Temp Pulse Resp BP Pulse Ox 04/28/22 08:03 106 H 04/28/22 07:50 100 98 04/28/22 03:28 98.6 F 110 H 18 130/108 98 04/28/22 02:00 74 16 99 04/28/22 01:00 98 16 04/28/22 00:00 101 H 18 99 04/27/22 23:00 165 H 18 118/86 99 04/27/22 22:30 118 H 16 04/27/22 22:00 96 18 04/27/22 21:30 125 H 16 110/94 04/27/22 21:00 131 H 121/110 04/27/22 20:50 121/110 04/27/22 20:00 149 H 128/116 04/27/22 19:30 121 H 113/84 97 04/27/22 19:00 125 H 127/75 96 04/27/22 18:30 138 H 115/86 96 04/27/22 18:00 140 H 115/81 97 04/27/22 17:50 98.1 F 124 H 22 97 04/27/22 17:30 147 H 109/71 97 04/27/22 17:00 133 H 105/88 98 04/27/22 16:30 125 H 115/81 98 04/27/22 16:00 152 H 94/81 99 04/27/22 15:30 107 H 95/79 99 04/27/22 15:00 147 H 17 108/85 04/27/22 14:30 154 H 18 90/65 95 04/27/22 14:00 144 H 20 122/85 97 04/27/22 13:05 98.7 F 64 26 H 110/45 88 L Intake and Output 04/27/22 04/28/22 04/28/22 22:59 06:59 14:59 Intake Total .917 73.667 Balance 7 73.667 Intake: Intake, IV Titration 7 73.667 Amount Diltiazem 125 mg In 73.667 Sodium Chloride 0.9% 100 ml @ 10 MG/HR 10 mls/hr IV .[id number] [facility] Rx#: [id number] - Constitutional General appearance: no acute distress - Respiratory Respiratory: bilateral: diminished - Cardiovascular Rhythm: irregularly irregular Results 04/28/22 07:23 04/27/22 13:45 Cardiac Enzymes 04/27/22 04/27/22 04/27/22 Range/Units 13:45 13:45 18:18 AST 54 (17-59) U/L Troponin I <0.012 <0.012 (0.000-0.034) ng/mL Coagulation 04/27/22 Range/Units 13:45 PT 11.8 (9.0-12.0) sec APTT 24.0 (22.0-30.0) sec CBC 04/27/22 04/28/22 Range/Units 13:45 07:23 WBC 11.0 H 9.6 (3.8-10.6) k/uL RBC 5.53 5.61 (4.30-5.90) m/uL Hgb 13.6 13.3 (13.0-17.5) gm/dL Hct 43.4 44.5 (39.0-53.0) % Plt Count 110 L 126 L (150-450) k/uL Comprehensive Metabolic Panel 04/27/22 Range/Units 13:45 Sodium 136 L (137-145) mmol/L Potassium 3.3 L (3.5-5.1) mmol/L Chloride 91 L (98-107) mmol/L Carbon Dioxide 39 H (22-30) mmol/L BUN 36 H (9-20) mg/dL Creatinine 0.79 (0.66-1.25) mg/dL Glucose 104 H (74-99) mg/dL Calcium 9.1 (8.4-10.2) mg/dL AST 54 (17-59) U/L ALT 97 H (4-49) U/L Alkaline Phosphatase 157 H (38-126) U/L Total Protein 6.8 (6.3-8.2) g/dL Albumin 3.9 (3.5-5.0) g/dL Current Medications Generic Name Dose Route Start Last Admin Trade Name Freq PRN Reason Stop Dose Admin Albuterol Sulfate 2.5 mg 04/27/22 20:13 Albuterol Nebulized 2.5 Mg/3 Ml INHALATION RT-Q4H PRN Shortness Of Breath Albuterol/Ipratropium 3 ml 04/28/22 02:00 04/28/22 07:50 Ipratropium-Albuterol 3 Ml Neb INHALATION 3 ml RT-Q6H ANÍBAL Administration Apixaban 5 mg 04/27/22 21:00 04/27/22 22:36 Apixaban 5 Mg Tab PO 5 mg BID ANÍBAL Administration Protocol Atenolol 100 mg 04/28/22 09:00 Atenolol 50 Mg Tab PO DAILY ANÍBAL Budesonide 0.5 mg 04/28/22 08:00 04/28/22 07:50 Budesonide 0.5 Mg/2 Ml Nebu INHALATION 0.5 mg RT-BID ANÍBAL Administration Chlorthalidone 25 mg 04/28/22 09:00 Chlorthalidone 25 Mg Tab PO DAILY ANÍBAL Famotidine 20 mg 04/27/22 21:00 04/27/22 22:36 Famotidine 20 Mg Tab PO 20 mg BID ANÍBAL Administration Furosemide 40 mg 04/27/22 16:00 04/28/22 02:03 Furosemide 10 Mg/Ml 4 Ml Vial IV Not Given Q8HR ANÍBAL Diltiazem HCl 125 mg/ Sodium 125 mls @ 10 mls/hr 04/27/22 13:45 04/28/22 01:57 Chloride IV 10 mg/hr .[id number] ANÍBAL 10 mls/hr Administration 10 MG/HR Metolazone 10 mg 04/28/22 09:00 Metolazone 5 Mg Tab PO DAILY [facility] Nicotine 1 patch 04/28/22 09:00 Nicotine 21mg/24hr Patch TRANSDERM DAILY [facility] Nitroglycerin 1 inch 04/27/22 15:00 04/28/22 03:07 Nitroglycerin Oint 1 Inch/Gm Packet TOPICAL Not Given Q6H ANÍBAL Potassium Chloride 10 meq 04/28/22 09:00 Potassium Chloride Er 10 Meq Tab.Er.Prt PO DAILY ANÍBAL Pregabalin 100 mg 04/27/22 21:00 04/28/22 03:06 Pregabalin 100 Mg Cap PO Not Given BID ANÍBAL Sodium Chloride 10 ml 04/27/22 21:00 04/28/22 03:06 Sodium Chloride 0.9% Flush 10 Ml Syringe IV 10 ml BID ANÍBAL Administration Intake and Output 04/27/22 04/28/22 04/28/22 22:59 06:59 14:59 Intake Total 22.917 73.667 Balance 22.917 73.667 Intake: Intake, IV Titration 22.917 73.667 Amount Diltiazem 125 mg In 22.917 73.667 Sodium Chloride 0.9% 100 ml @ 10 MG/HR 10 mls/hr IV .[id number] [facility] Rx#: [id number] 04/28/22 07:23 04/27/22 13:45 Assessment and Plan Assessment: Assessment Atrial fibrillation with RVR Known paroxysmal atrial fibrillation Nonischemic cardiomyopathy Heart failure exacerbation secondary to heart failure with reduced ejection fraction Multiple comorbid conditions Plan Continue current dose of atenolol Continue IV diuretics for additional 24 hours Monitor the kidney function and electrolytes Consider amiodarone IV in case he heart rate goes out of control Monitor the patient for additional 24 hours Follow-up with the patient
[2022-04-28 08:29] LABS: Anion Gap 8 mmol/L
[2022-04-28 08:53] LABS: Carbon Dioxide 42 mmol/L (22-30)
[2022-04-28] MEDS: NICOTINE 21MG/24HR PATCH TRANSDERM SCH (11:22)
[2022-04-28] MEDS: POTASSIUM CHLORIDE ER 10 MEQ TAB.ER.PRT PO SCH (11:23)
[2022-04-28] MEDS: APIXABAN 5 MG TAB PO SCH ×2 (11:23→20:24)
[2022-04-28] MEDS: FAMOTIDINE 20 MG TAB PO SCH ×2 (11:24→20:25)
[2022-04-28] MEDS: atenoloL 50 MG TAB PO SCH (11:24)
[2022-04-28] MEDS: CHLORTHALIDONE 25 MG TAB PO SCH (11:24)
[2022-04-28] MEDS: metOLazone 5 MG TAB PO SCH (11:25)
[2022-04-28] MEDS: LORazepam 0.5 MG TAB PO PRN ×2 (14:10→20:25)
[2022-04-28 14:12] VITALS: BMI 36.9
[2022-04-28] MEDS: MELATONIN 5 MG TABLET PO SCH (20:24)
[2022-04-28] MEDS: acetaZOLAMIDE 250 MG TAB PO SCH (20:24)
[2022-04-29] MEDS: NITROGLYCERIN OINT 1 INCH/GM PACKET TOPICAL SCH ×4 (00:39→20:09)
[2022-04-29] MEDS: DILTIAZEM 125 MG in SODIUM CHLORIDE 0.9% 100 ML IV SCH ×2 (01:04→20:09)
[2022-04-29 05:55] LABS: Calcium 8.1 mg/dL (8.4-10.2); Potassium 2.8 mmol/L (3.5-5.1)
--- NOTE | 2022-04-29 06:57 | P.PN ---
Subjective Progress Note Date: 04/29/22 Principal diagnosis: Paroxysmal atrial fibrillation The patient is a pleasant 51-year-old gentleman with a past medical history significant for chronic obstructive pulmonary disease, nonischemic cardiomyopathy, paroxysmal atrial fibrillation, as well as multiple comorbid conditions. He presented to the hospital complaining of increasing shortness of breath for the last few days. The shortness of breath was not associated with any chest pain or chest discomfort but was associated with scar not productive of any sputum. No lower extubated edema. No dizziness or lightheadedness and no presyncope or syncope. He was found to be in A. fib with RVR and subsequently he was started on Cardizem IV. Beside that he underwent further investigation including chest x-ray showed pulmonary vascular congestion. The patient was started on Lasix IV. NT proBNP was about 2000. The patient was seen and evaluated this morning. He remains in atrial fibrillation with overall controlled heart rate. Currently he is on atenolol 100 mg by mouth daily. He is also on oral anticoagulation which was continued. He seems to be slightly hypervolemic with mild bilateral lower extremities edema and diminished breathing sounds bilaterally. The last echo showed an ejection fraction between 40-45%. April 29 2022 The patient was seen and evaluated this morning. He continues to be in atrial fibrillation with overall controlled heart rate on the current dose of atenolol. Hemodynamically he is hypotensive. Currently he is on Lasix IV. He still requires liters of oxygen to maintain saturation above 90s. Otherwise he does have diminished breathing sounds bilaterally and very mild bilateral lower extremities edema. He is also on oral anticoagulation. At this point I'm going to decrease the dose of Lasix IV in the light of low blood pressure and worsening kidney function. Continue beta priscilla and continue oral anticoagulation. Continue monitor the kidney function and electrolytes and follow-up with the patient. Objective - Vital Signs Vital signs: Vital Signs Temp 98.4 F 04/28/22 20:00 Pulse 68 04/28/22 23:32 Resp 16 04/28/22 23:32 BP 82/57 04/28/22 23:32 Pulse Ox 99 04/28/22 23:32 FiO2 40 04/29/22 03:25 Intake & Output 04/28/22 04/28/22 04/29/22 06:59 18:59 06:59 Intake Total 73.667 605 564.167 Output Total 150 Balance 73.667 455 564.167 Weight 113.398 kg Intake: Intake, IV Titration 73.667 125 84.167 Amount Diltiazem 125 mg In 73.667 125 84.167 Sodium Chloride 0.9% 100 ml @ 10 MG/HR 10 mls/hr IV .[id number] [facility] Rx#: [id number] Oral 480 480 Output: Urine 150 Other: Voiding Method Toilet # Voids 2 - Constitutional General appearance: Present: no acute distress - Respiratory Respiratory: bilateral: diminished - Cardiovascular Rhythm: irregularly irregular Abnormal Heart Sounds: Present: systolic murmur - Labs CBC & Chem 7: 04/28/22 07:23 04/29/22 04:16 Labs: Abnormal Lab Results - Last 24 Hours (Table) 04/28/22 04/28/22 04/29/22 Range/Units 07:23 07:23 04:16 MCV 79.3 L (80.0-100.0) fL MCH 23.8 L (25.0-35.0) pg MCHC 29.9 L (31.0-37.0) g/dL RDW 20.5 H (11.5-15.5) % Plt Count 126 L (150-450) k/uL Sodium 132 L (137-145) mmol/L Potassium 2.8 L (3.5-5.1) mmol/L Chloride 87 L 84 L (98-107) mmol/L Carbon Dioxide 42 H* 42 H* (22-30) mmol/L BUN 40 H 51 H (9-20) mg/dL Creatinine 1.58 H (0.66-1.25) mg/dL Glucose 107 H 104 H (74-99) mg/dL Calcium 8.1 L (8.4-10.2) mg/dL Assessment and Plan Assessment: Assessment Atrial fibrillation with RVR Known paroxysmal atrial fibrillation Nonischemic cardiomyopathy Heart failure exacerbation secondary to heart failure with reduced ejection fraction Hypotension Acute renal failure Plan Continue current dose of atenolol Decrease the dose of Lasix in the light of low blood pressure and worsening kidney function Monitor the kidney function and electrolytes Monitor the patient for additional 24 hours Follow-up with the patient
[2022-04-29] MEDS: acetaZOLAMIDE 250 MG TAB PO SCH ×2 (08:14→20:06)
[2022-04-29] MEDS: metOLazone 5 MG TAB PO SCH (08:14)
[2022-04-29] MEDS: atenoloL 50 MG TAB PO SCH (08:14)
[2022-04-29] MEDS: PREGABALIN 100 MG CAP PO SCH ×2 (08:14→20:06)
[2022-04-29] MEDS: FUROSEMIDE 10 MG/ML 2 ML VIAL IV SCH ×2 (08:15→20:06)
[2022-04-29] MEDS: FAMOTIDINE 20 MG TAB PO SCH ×2 (08:15→20:06)
[2022-04-29] MEDS: NICOTINE 21MG/24HR PATCH TRANSDERM SCH (08:15)
[2022-04-29] MEDS: APIXABAN 5 MG TAB PO SCH ×2 (08:15→20:06)
[2022-04-29] MEDS: POTASSIUM CHLORIDE ER 10 MEQ TAB.ER.PRT PO SCH (08:15)
[2022-04-29] MEDS: LORazepam 0.5 MG TAB PO PRN ×3 (08:20→20:15)
[2022-04-29] MEDS ORDERED: Potassium Replacement Protocol 1 EACH MISC MISCELLANE PRN (08:20)
[2022-04-29] MEDS: BUDESONIDE 0.5 MG/2 ML NEBU INHALATION SCH (08:52)
[2022-04-29] MEDS: IPRATROPIUM-ALBUTEROL 3 ML NEB INHALATION SCH ×5 (08:52→20:15)
[2022-04-29] MEDS: POTASSIUM CHLORIDE ER 20 MEQ TAB.ER PO SCH ×3 (09:12→12:21)
[2022-04-29] MEDS: POTASSIUM CHLORIDE 10 MEQ in WATER FOR INJECTION 1 100ML.BAG IVPB SCH ×4 (09:14→17:21)
[2022-04-29] MEDS ORDERED: IPRATROPIUM-ALBUTEROL 3 ML NEB INHALATION PRN (09:30)
[2022-04-29] MEDS: methylPREDNISolone SOD SUCCI 125 MG/2 ML VIAL IV SCH ×2 (12:21→17:21)
--- NOTE | 2022-04-29 12:29 | P.CNPUL ---
History of Present Illness Consult date: 04/29/22 Requesting physician: Callie Pham Reason for consult: dyspnea, cough, COPD, hypoxemia, abnormal CXR/CT Chief complaint: Shortness of breath. History of present illness: Pulmonary consult dated 04/29/2022. 51-year-old male seen in the emergency department, on April 27. He apparently presented there with complaints of shortness of breath. His primary care provider is Dr. Milton Arias. The patient was recently in the hospital between April 12, and April 16. He was also over at [facility] for a week or 10 days. The patient presents with progressive and increasing shortness of breath. In addition, the patient complains of cough, and minimal phlegm production. No fever. No chills. The phlegm that he does produce has a estrella color to it. He denied any chest pain or chest discomfort. The patient recently quit smoking. I believe he was seen by my partner on his previous admission here, in late March. He has a history of COPD, atrial fibrillation, and hypertension. White count 9.6, hemoglobin 13.3, hematocrit 44.5, and platelet count 226,000. Sodium 132, potassium 2.8, chlorides 84, CO2 42, BUN 51, and creatinine 1.58. Chest x-ray on admission in my opinion was consistent with cardiomegaly, and CHF. Review of Systems REVIEW OF SYSTEMS: CONSTITUTIONAL: [Negative.] NEUROLOGIC: [ Negative.] HEENT: [ Negative.] CARDIAC: Lower extremity edema. PULMONARY: Shortness of breath, progressive, with cough and estrella phlegm production. GI: [Negative.] : [Negative.] RHEUMATOLOGIC: [ Negative.] IMMUNOLOGIC: [ Negative.] ENDOCRINE: [Negative. ] DERMATOLOGIC: [Negative.] Past Medical History Past Medical History: Atrial Fibrillation, COPD, Hypertension History of Any Multi-Drug Resistant Organisms: None Reported Additional Past Surgical History / Comment(s): RICKY 04-11-2022 Smoking Status: Former smoker - Past Family History Mother Family Medical History: Dementia Father Family Medical History: Cancer Medications and Allergies Home Medications Medication Instructions Recorded Confirmed Type Famotidine [Pepcid] 20 mg PO BID 04/11/22 04/27/22 History Ipratropium-Albuterol Nebulize 3 ml INHALATION RT-Q6H 04/11/22 04/27/22 History [Duoneb 0.5 mg-3 mg/3 ml Soln] Nicotine 21Mg/24Hr Patch [Habitrol] 1 patch TRANSDERM DAILY 04/11/22 04/27/22 History Pregabalin [Lyrica] 100 mg PO BID 04/11/22 04/27/22 History Apixaban [Eliquis] 5 mg PO BID #60 tab 04/13/22 04/27/22 Rx Furosemide [Lasix] 40 mg PO BID@0900,1600 #60 tab 04/16/22 04/27/22 Rx Potassium Chloride ER [K-Dur 10] 10 meq PO DAILY #30 tab 04/16/22 04/27/22 Rx Albuterol Sulfate [Ventolin HFA] 2 puff INHALATION RT-Q4H PRN 04/27/22 04/27/22 History Budesonide [Pulmicort] 0.5 mg INHALATION RT-BID 04/27/22 04/27/22 History Chlorthalidone [Hygroton] 25 mg PO DAILY 04/27/22 04/27/22 History metOLazone [Zaroxolyn] 10 mg PO DAILY 04/27/22 04/27/22 History predniSONE See Taper PO DIRECTED 04/27/22 04/27/22 History LORazepam [Ativan] 0.5 mg PO Q6HR PRN 04/28/22 04/28/22 History Melatonin 5 mg PO HS 04/28/22 04/28/22 History Metoclopramide [Reglan] 10 mg PO Q6HR PRN 04/28/22 04/28/22 History Metoprolol Tartrate [Lopressor] 100 mg PO TID 04/28/22 04/28/22 History acetaZOLAMIDE [Diamox] 250 mg PO BID 04/28/22 04/28/22 History Allergies Allergy/AdvReac Type Severity Reaction Status Date / Time No Known Allergies Allergy Verified 04/27/22 15:00 Physical Exam Osteopathic Statement: *. No significant issues noted on an osteopathic structural exam other than those noted in the History and Physical/Consult. Vitals: Vital Signs Temp Pulse Pulse Resp BP BP Pulse Ox 04/29/22 12:14 88 04/29/22 12:01 88 04/29/22 11:27 97.6 F 89 20 96/61 99 04/29/22 09:07 72 04/29/22 08:53 72 04/29/22 07:56 97.5 F L 75 20 102/71 97 04/29/22 03:25 04/29/22 00:16 04/28/22 23:32 68 16 82/57 99 04/28/22 21:36 04/28/22 20:00 98.4 F 137 H 20 95/58 95 04/28/22 19:43 74 04/28/22 19:21 70 97 04/28/22 16:20 97.4 F L 82 20 107/73 99 04/28/22 15:17 80 04/28/22 15:08 84 04/28/22 12:42 97.3 F L 82 20 105/73 98 FiO2 04/29/22 12:14 04/29/22 12:01 04/29/22 11:27 40 04/29/22 09:07 04/29/22 08:53 40 04/29/22 07:56 40 04/29/22 03:25 40 04/29/22 00:16 40 04/28/22 23:32 40 04/28/22 21:36 40 04/28/22 20:00 04/28/22 19:43 04/28/22 19:21 04/28/22 16:20 04/28/22 15:17 04/28/22 15:08 04/28/22 12:42 Intake and Output 04/28/22 04/29/22 04/29/22 22:59 06:59 14:59 Intake Total 240 564.167 240 Output Total 150 500 Balance 90 564.167 -260 Intake: Intake, IV Titration 84.167 Amount Diltiazem 125 mg In 84.167 Sodium Chloride 0.9% 100 ml @ 10 MG/HR 10 mls/hr IV .[id number] [facility] Rx#: [id number] Oral 240 480 240 Output: Urine 150 500 Other: Voiding Method Toilet Toilet # Voids 2 No acute distress, oriented 3. Currently on 3 L of oxygen. Saturations are in the mid 90s. No conversational dyspnea or use of accessory muscles. HEENT examination is grossly unremarkable. Neck supple. Full range of motion. No adenopathy thyromegaly or neck vein distention. Cardiovascular examination reveals an irregular rhythm and rate. S1-S2 normal. No S3 or S4. No discernible murmur noted. Heart rate 88 bpm. Lungs reveal scattered bibasilar crackles. Scattered rhonchi are also noted. Breath sounds are equal laterally. No wheezes. Saturations are 88%. Breath sounds are diminished throughout. Abdomen soft bowel sounds are heard. No masses or tenderness. Extremities are intact. No cyanosis or clubbing. Mild edema is appreciated. Skin is without rash or lesion. Neurologic examination is brief but nonfocal. Results - Laboratory Findings CBC and BMP: 04/28/22 07:23 04/29/22 04:16 PT/INR, D-dimer PT 11.8 sec (9.0-12.0) 04/27/22 13:45 INR 1.1 (<1.2) 04/27/22 13:45 Abnormal lab findings: Abnormal Labs 04/27/22 04/27/22 04/27/22 13:45 13:45 18:30 WBC 11.0 H MCV 78.5 L MCH 24.7 L MCHC RDW 20.9 H Plt Count 110 L Neutrophils # 8.6 H Sodium 136 L Potassium 3.3 L Chloride 91 L Carbon Dioxide 39 H BUN 36 H Creatinine Glucose 104 H POC Glucose (mg/dL) 196 H Calcium ALT 97 H Alkaline Phosphatase 157 H 04/28/22 04/28/22 04/29/22 07:23 07:23 04:16 WBC MCV 79.3 L MCH 23.8 L MCHC 29.9 L RDW 20.5 H Plt Count 126 L Neutrophils # Sodium 132 L Potassium 2.8 L Chloride 87 L 84 L Carbon Dioxide 42 H* 42 H* BUN 40 H 51 H Creatinine 1.58 H Glucose 107 H 104 H POC Glucose (mg/dL) Calcium 8.1 L ALT Alkaline Phosphatase - Diagnostic Findings Chest x-ray: image reviewed Assessment and Plan Assessment: Acute hypoxemic respiratory failure, with progressive shortness of breath, secondary to both COPD exacerbation, and CHF. History of atrial fibrillation. History of hypertension. History of heavy tobacco use. History of acute kidney injury. History of alcohol abuse. Plan: Plan dated 04/29/2022. The patient was recently inpatient here between April 12 and April 16, and saw my partner. Last night, the nurses call me, and I gave them BiPAP orders, with an IPAP of 12, EPAP of 5, and 40% FiO2. Use it all night last night, and it really seemed to help. Currently, he is on 3 L. He is getting saline at KVO. He's on a Cardizem drip at 5 mg an hour for his atrial fibrillation. The patient has been seen by cardiology. Additional recommendations and suggestions are forthcoming. He is currently on budesonide, formoterol, albuterol sulfate, and ipratropium bromide, and Solu-Medrol. We will continue to follow and make recommendations along the way. We counseled about the importance of smoking cessation. We place a nicotine patch on him. Time with Patient: Greater than 30
--- NOTE | 2022-04-29 14:51 | P.PN ---
Subjective Progress Note Date: 04/28/22 51-year-old male, history of hypertension, COPD, atrial fibrillation, presenting to the emergency department with concerns with difficulty in breathing. Symptoms have progressively the past couple of days. Patient was in the hospital a couple weeks ago with congestive heart failure and atrial fibrillation. Patient does have history of COPD however that is not similar to this. Patient does have cough with occasional estrella sputum. No fevers. Patient does have some edema still. Patient states he is on furosemide. Workup including EKG completed in ED reveals atrial fibrillation with RVR with nonspecific ST and T wave changes Chest x-ray reveals cardiomegaly and interstitial edema Blood work reveals sodium 136, potassium 3.3, BUN/creatinine of 36/0.79, WBC 11.0, hemoglobin of 13.6, and platelet count of 110 Objective - Vital Signs Vital signs: Vital Signs Temp 97.3 F L 04/28/22 12:42 Pulse 82 04/28/22 12:42 Resp 20 04/28/22 12:42 BP 105/73 04/28/22 12:42 Pulse Ox 98 04/28/22 12:42 FiO2 Intake & Output 04/27/22 04/28/22 04/28/22 18:59 06:59 18:59 Intake Total 22.917 73.667 240 Balance 22.917 73.667 240 Weight 113.398 kg 113.398 kg Intake: Intake, IV Titration 22.917 73.667 Amount Diltiazem 125 mg In 22.917 73.667 Sodium Chloride 0.9% 100 ml @ 10 MG/HR 10 mls/hr IV .[id number] [facility] Rx#: [id number] Oral 240 - Exam General appearance: alert Eye exam: Present: normal appearance Neck exam: Present: normal inspection Respiratory exam: Present: rales Cardiovascular Exam: Present: tachycardia, irregular rhythm GI/Abdominal exam: Present: soft. Absent: tenderness Extremities exam: Present: pedal edema (+1 bilateral). Absent: calf tenderness Neurological exam: Present: alert Psychiatric exam: Present: normal affect, normal mood Skin exam: Present: cyanosis (Mild cyanotic appearance the lips) - Labs CBC & Chem 7: 04/28/22 07:23 04/29/22 04:16 Labs: Abnormal Lab Results - Last 24 Hours (Table) 04/27/22 04/27/2222 Range/Units 13:45 13:45 18:30 WBC 11.0 H (3.8-10.6) k/uL MCV 78.5 L (80.0-100.0) fL MCH 24.7 L (25.0-35.0) pg MCHC (31.0-37.0) g/dL RDW 20.9 H (11.5-15.5) % Plt Count 110 L (150-450) k/uL Neutrophils # 8.6 H (1.3-7.7) k/uL Sodium 136 L (137-145) mmol/L Potassium 3.3 L (3.5-5.1) mmol/L Chloride 91 L (98-107) mmol/L Carbon Dioxide 39 H (22-30) mmol/L BUN 36 H (9-20) mg/dL Glucose 104 H (74-99) mg/dL POC Glucose (mg/dL) 196 H (70-110) mg/dL ALT 97 H (4-49) U/L Alkaline Phosphatase 157 H (38-126) U/L 04/28/22 04/28/22 Range/Units 07:23 07:23 WBC (3.8-10.6) k/uL MCV 79.3 L (80.0-100.0) fL MCH 23.8 L (25.0-35.0) pg MCHC 29.9 L (31.0-37.0) g/dL RDW 20.5 H (11.5-15.5) % Plt Count 126 L (150-450) k/uL Neutrophils # (1.3-7.7) k/uL Sodium (137-145) mmol/L Potassium (3.5-5.1) mmol/L Chloride 87 L (98-107) mmol/L Carbon Dioxide 42 H* (22-30) mmol/L BUN 40 H (9-20) mg/dL Glucose 107 H (74-99) mg/dL POC Glucose (mg/dL) (70-110) mg/dL ALT (4-49) U/L Alkaline Phosphatase (38-126) U/L Assessment and Plan Assessment: 1. Acute exacerbation CHF - Patient has been placed on Lasix 40 mg IV every 8 hours; chlorthalidone 25 mg daily; metolazone 10 mg daily - We will monitor strict LEYLA's and daily weights; low-salt and fluid restricted diet 2. Atrial fibrillation with RVR; patient has been placed on IV Cardizem infusi on at a rate of 10 mg per hour with plans to titrate as needed; remains anticoagulated on Eliquis 5 mg twice a day 3. Mild MARIANA; we will hold off on IV fluid hydration given CHF exacerbation; we will monitor renal function and electrolytes, strict LEYLA's and daily weights; avoid nephrotoxins and hypotension 4. Hypertension; stable on Cardizem, Lasix 5. COPD; not in exacerbation; we will continue with home inhaler therapy in form of Pulmicort twice a day and albuterol inhaler every 4 hours when necessary and DuoNeb nebulizer treatment 4 times a day 6. Peripheral neuropathy; Lyrica 100 mg twice a day DVT prophylaxis; SCDs/ Eliquis CODE STATUS; full code
[2022-04-29] MEDS: CHLORTHALIDONE 25 MG TAB PO SCH (17:18)
--- NOTE | 2022-04-29 18:34 | P.PN ---
Subjective Progress Note Date: 04/29/22 Principal diagnosis: Acute hypoxemic respiratory failure, with progressive shortness of breath, secondary to both COPD exacerbation, and CHF Acute exacerbation CHF Acute exacerbation COPD 51-year-old male, history of hypertension, COPD, atrial fibrillation, presenting to the emergency department with concerns with difficulty in breathing. Symptoms have progressively the past couple of days. Patient was in the hospital a couple weeks ago with congestive heart failure and atrial fibrillation. Patient does have history of COPD however that is not similar to this. Patient does have cough with occasional estrella sputum. No fevers. Patient does have some edema still. Patient states he is on furosemide. Workup including EKG completed in ED reveals atrial fibrillation with RVR with nonspecific ST and T wave changes Chest x-ray reveals cardiomegaly and interstitial edema Blood work reveals sodium 136, potassium 3.3, BUN/creatinine of 36/0.79, WBC 11.0, hemoglobin of 13.6, and platelet count of 110 04/29/2022 Patient is seen and evaluated in room at bedside Currently, he is on 3 L. He is getting saline at KVO. He's on a Cardizem drip at 5 mg an hour for his atrial fibrillation. The patient has been seen by card iology. Additional recommendations and suggestions are forthcoming. He is currently on budesonide, formoterol, albuterol sulfate, and ipratropium bromide, and Solu-Medrol. Patient has been evaluated by cardiology-- He continues to be in atrial fibrillation with overall controlled heart rate on the current dose of atenolol. Hemodynamically he is hypotensive. Currently he is on Lasix IV. He still requires liters of oxygen to maintain saturation above 90s. Otherwise he does have diminished breathing sounds bilaterally and very mild bilateral lower extremities edema. He is also on oral anticoagulation. At this point I'm going to decrease the dose of Lasix IV in the light of low blood pressure and worsening kidney function. Continue beta priscilla and continue oral anticoagulation. Continue monitor the kidney function and electrolytes and follow-up with the patient. Objective - Vital Signs Vital signs: Vital Signs Temp 97.6 F 04/29/22 11:27 Pulse 88 04/29/22 12:14 Resp 20 04/29/22 11:27 BP 96/61 04/29/22 11:27 Pulse Ox 99 04/29/22 11:27 FiO2 40 04/29/22 11:27 Intake & Output 04/28/22 04/29/22 04/29/22 18:59 06:59 18:59 Intake Total 605 564.167 240 Output Total 150 650 Balance 455 564.167 -410 Weight 113.398 kg Intake: Intake, IV Titration 125 84.167 Amount Diltiazem 125 mg In 125 84.167 Sodium Chloride 0.9% 100 ml @ 10 MG/HR 10 mls/hr IV .[id number] [facility] Rx#: [id number] Oral 480 480 240 Output: Urine 150 650 Other: Voiding Method Toilet # Voids 2 - Exam General appearance: alert Eye exam: Present: normal appearance Neck exam: Present: normal inspection Respiratory exam: Present: rales Cardiovascular Exam: Present: tachycardia, irregular rhythm GI/Abdominal exam: Present: soft. Absent: tenderness Extremities exam: Present: pedal edema (+1 bilateral). Absent: calf tenderness Neurological exam: Present: alert Psychiatric exam: Present: normal affect, normal mood Skin exam: Present: cyanosis (Mild cyanotic appearance the lips) - Labs CBC & Chem 7: 04/28/22 07:23 04/29/22 04:16 Labs: Abnormal Lab Results - Last 24 Hours (Table) 04/29/22 Range/Units 04:16 Sodium 132 L (137-145) mmol/L Potassium 2.8 L (3.5-5.1) mmol/L Chloride 84 L (98-107) mmol/L Carbon Dioxide 42 H* (22-30) mmol/L BUN 51 H (9-20) mg/dL Creatinine 1.58 H (0.66-1.25) mg/dL Glucose 104 H (74-99) mg/dL Calcium 8.1 L (8.4-10.2) mg/dL Assessment and Plan Assessment: 1. Acute exacerbation CHF - Patient has been placed on Lasix 40 mg IV every 8 hours; chlorthalidone 25 mg daily; metolazone 10 mg daily - We will monitor strict LEYLA's and daily weights; low-salt and fluid restricted diet 2. Atrial fibrillation with RVR; patient has been placed on IV Cardizem infusion at a rate of 10 mg per hour with plans to titrate as needed; remains anticoagulated on Eliquis 5 mg twice a day 3. Mild MARIANA; we will hold off on IV fluid hydration given CHF exacerbation; we will monitor renal function and electrolytes, strict LEYLA's and daily weights; avoid nephrotoxins and hypotension 4. Hypertension; stable on Cardizem, Lasix 5. COPD; not in exacerbation; we will continue with home inhaler therapy in form of Pulmicort twice a day and albuterol inhaler every 4 hours when necessary and DuoNeb nebulizer treatment 4 times a day 6. Peripheral neuropathy; Lyrica 100 mg twice a day DVT prophylaxis; SCDs/ Eliquis CODE STATUS; full code
[2022-04-29] MEDS: MELATONIN 5 MG TABLET PO SCH (20:06)
[2022-04-29] MEDS: BUDESONIDE 1 MG/2 ML NEBU INHALATION SCH (20:15)
[2022-04-29] MEDS: FORMOTEROL FUMARATE 20 MCG/2 ML NEBU INHALATION SCH (20:15)
[2022-04-30] MEDS: methylPREDNISolone SOD SUCCI 125 MG/2 ML VIAL IV SCH ×5 (00:07→23:10)
[2022-04-30] MEDS: NITROGLYCERIN OINT 1 INCH/GM PACKET TOPICAL SCH ×2 (03:29→09:31)
[2022-04-30] MEDS: BUDESONIDE 1 MG/2 ML NEBU INHALATION SCH ×2 (07:21→20:07)
[2022-04-30] MEDS: IPRATROPIUM-ALBUTEROL 3 ML NEB INHALATION SCH ×4 (07:21→20:08)
[2022-04-30] MEDS: FORMOTEROL FUMARATE 20 MCG/2 ML NEBU INHALATION SCH ×2 (07:21→20:07)
[2022-04-30 09:02] LABS: African American GFR (CKD) >90 (>60 ml/min/1.73 sqM); Anion Gap 7 mmol/L; Blood Urea Nitrogen 44 mg/dL (9-20); Calcium 8.3 mg/dL (8.4-10.2); Carbon Dioxide 40 mmol/L (22-30); Chloride 88 mmol/L (98-107); Glucose 112 mg/dL (74-99); Non-African American GFR(CKD) 82 (>60 ml/min/1.73 sqM); Potassium 3.3 mmol/L (3.5-5.1); Sodium 135 mmol/L (137-145)
[2022-04-30] MEDS: DILTIAZEM 125 MG in SODIUM CHLORIDE 0.9% 100 ML IV SCH (09:29)
[2022-04-30] MEDS: APIXABAN 5 MG TAB PO SCH ×2 (09:30→20:46)
[2022-04-30] MEDS: PREGABALIN 100 MG CAP PO SCH ×2 (09:30→20:46)
[2022-04-30] MEDS: CHLORTHALIDONE 25 MG TAB PO SCH (09:30)
[2022-04-30] MEDS: NICOTINE 21MG/24HR PATCH TRANSDERM SCH (09:30)
[2022-04-30] MEDS: atenoloL 50 MG TAB PO SCH (09:30)
[2022-04-30] MEDS: POTASSIUM CHLORIDE ER 10 MEQ TAB.ER.PRT PO SCH (09:30)
[2022-04-30] MEDS: acetaZOLAMIDE 250 MG TAB PO SCH ×2 (09:30→20:46)
[2022-04-30] MEDS: FAMOTIDINE 20 MG TAB PO SCH ×2 (09:30→20:46)
[2022-04-30] MEDS: metOLazone 5 MG TAB PO SCH (09:31)
[2022-04-30] MEDS: FUROSEMIDE 10 MG/ML 2 ML VIAL IV SCH ×2 (09:31→20:46)
--- NOTE | 2022-04-30 11:08 | P.PN ---
Subjective Progress Note Date: 04/30/22 PROGRESS NOTE The patient is a 51-year-old male with a history of chronic tobacco and alcohol intake who presented with symptoms of progressive dyspnea and CHF. He was recently in the hospital was atrial flutter and underwent cardioversion, was found to have an ejection fraction of 40-45%. He continues to be dyspneic, slightly better. He is in atrial fibrillation with controlled ventricular response. He denies any dizziness or palpitations. He has not been smoking since his admission last time. He continues to have a cough, productive. Medications: Lasix 20 mg IV every 12 hours, metolazone 10 mg daily, hygroton, Tenormin 100 mg daily,Eliquis 5 mg twice a day, DuoNeb, nicotine patch, IV Cardizem, Nitropaste PHYSICAL EXAMINATION: Blood pressure 124/58 heart rate 90 LUNGS: Scattered rhonchi with decreased air exchange HEART: Irregular rate and rhythm, S1, S2. No S3. No systolic murmur ABDOMEN: Soft, nontender, no organomegaly EXTREMETIES: Trace edema LAB: Potassium 3.3, bicarb 40, BUN 44, creatinine 1.05. IMPRESSION: 1. Worsening dyspnea with a combination of exacerbation of COPD and CHF with mildly to moderately impaired systolic function 2. Atrial fibrillation, anticoagulated 3. Prior history of chronic tobacco use 4. Prior history of alcohol intake PLAN: 1. Stop IV Cardizem and Nitropaste 2. Change beta priscilla to metoprolol succinate 3. Add PERRY inhibitor 4. Stop metolazone 5. Follow renal functions 6. Add Aldactone 7. Depending on his progress and after stabilization of his lung status he will require evaluation regarding his atrial arrhythmia. 8. Depending on the renal function add Farxiga Objective - Vital Signs Vital signs: Vital Signs Temp 98.2 F 04/30/22 08:15 Pulse 92 04/30/22 08:15 Resp 18 04/30/22 08:15 BP 124/58 04/30/22 08:15 Pulse Ox 94 L 04/30/22 08:15 FiO2 40 04/30/22 03:03 Intake & Output 04/29/22 04/30/22 04/30/22 18:59 06:59 18:59 Intake Total 480 125 180 Output Total 1250 Balance -770 125 180 Weight 109.9 kg Intake: Intake, IV Titration 125 Amount Diltiazem 125 mg In 125 Sodium Chloride 0.9% 100 ml @ 10 MG/HR 10 mls/hr IV .[id number] [facility] Rx#: [id number] Oral 480 180 Output: Urine 1250 Other: Voiding Method Toilet # Voids 500 - Labs CBC & Chem 7: 04/28/22 07:23 04/30/22 07:22 Labs: Abnormal Lab Results - Last 24 Hours (Table) 04/30/22 Range/Units 07:22 Sodium 135 L (137-145) mmol/L Potassium 3.3 L (3.5-5.1) mmol/L Chloride 88 L (98-107) mmol/L Carbon Dioxide 40 H (22-30) mmol/L BUN 44 H (9-20) mg/dL Glucose 112 H (74-99) mg/dL Calcium 8.3 L (8.4-10.2) mg/dL Microbiology - Last 24 Hours (Table) 04/28/22 21:42 Gram Stain - Preliminary Sputum Sputum Culture - Preliminary
[2022-04-30] MEDS ORDERED: POTASSIUM CHLORIDE ER 20 MEQ TAB.ER PO STA (11:45)
[2022-04-30] MEDS ORDERED: ACETAMINOPHEN TAB 500 MG TAB PO PRN (12:46)
[2022-04-30] MEDS: SPIRONOLACTONE 25 MG TAB PO SCH (13:16)
[2022-04-30] MEDS: guaiFENesin SYRUP 100MG/5ML 200 MG/10 ML CUP PO PRN ×2 (13:17→21:50)
--- NOTE | 2022-04-30 13:49 | P.PN ---
Subjective Progress Note Date: 04/30/22 51-year-old male seen in the emergency department with complaints of shortness of breath. His primary care provider is Dr. Milton Arias. The patient was recently in the hospital between April 12, and April 16. He was also over at [facility] for a week or 10 days. The patient presents with progressive and increasing shortness of breath. In addition, the patient complains of cough, and minimal phlegm production. No fever. No chills. The phlegm that he does produce has a estrella color to it. He denied any chest pain or chest discomfort. The patient recently quit smoking. I believe he was seen by my partner on his previous admission here, in late March. He has a history of COPD, atrial fibrillation, and hypertension. White count 9.6, hemoglobin 13.3, hematocrit 44.5, and platelet count 226,000. Sodium 132, potassium 2.8, chlorides 84, CO2 42, BUN 51, and creatinine 1.58. Chest x-ray on admission in my opinion was consistent with cardiomegaly, and CHF. On 04/30/2022, the patient is slightly improved. He is still struggling with his breathing is still on oxygen at 3 L nasal cannula. He also has a BiPAP machine at the bedside at a pressure of 12/5 with an FiO2 of 40%. He is on DuoNeb nebulized treatments [id number], Pulmicort Respules, Perforomist otherwise treatments and IV Solu-Medrol 60 mg every 6 hours. He remains on a combination of diuretics. He is currently on Lasix 20 mg IV every 12 hours is also on Aldactone. He is also on Diamox for her chronic metabolic alkalosis. He remains on long-term anticoagulation withEliquis and he is taking it for chronic atrial fibrillation. Objective - Vital Signs Vital signs: Vital Signs Temp 97.8 F 04/30/22 12:00 Pulse 108 H 04/30/22 12:00 Resp 19 04/30/22 12:00 BP 112/72 04/30/22 12:00 Pulse Ox 95 04/30/22 12:00 FiO2 40 04/30/22 03:03 Intake & Output 04/29/22 04/30/22 04/30/22 18:59 06:59 18:59 Intake Total 480 125 180 Output Total 1250 Balance -770 125 180 Weight 109.9 kg Intake: Intake, IV Titration 125 Amount Diltiazem 125 mg In 125 Sodium Chloride 0.9% 100 ml @ 10 MG/HR 10 mls/hr IV .[id number] [facility] Rx#: [id number] Oral 480 180 Output: Urine 1250 Other: Voiding Method Toilet # Voids 500 - Exam No acute distress, oriented 3. Currently on 3 L of oxygen. Saturations are in the mid 90s. No conversational dyspnea or use of accessory muscles. HEENT examination is grossly unremarkable. Neck supple. Full range of motion. No adenopathy thyromegaly or neck vein distention. Cardiovascular examination reveals an irregular rhythm and rate. S1-S2 normal. No S3 or S4. No discernible murmur noted. Heart rate 88 bpm. Lungs reveal scattered bibasilar crackles. Scattered rhonchi are also noted. Breath sounds are equal laterally. No wheezes. Saturations are 88%. Breath sounds are diminished throughout. Abdomen soft bowel sounds are heard. No masses or tenderness. Extremities are intact. No cyanosis or clubbing. Mild edema is appreciated. Skin is without rash or lesion. Neurologic examination is brief but nonfocal. - Labs CBC & Chem 7: 04/28/22 07:23 04/30/22 07:22 Labs: Abnormal Lab Results - Last 24 Hours (Table) 04/30/22 Range/Units 07:22 Sodium 135 L (137-145) mmol/L Potassium 3.3 L (3.5-5.1) mmol/L Chloride 88 L (98-107) mmol/L Carbon Dioxide 40 H (22-30) mmol/L BUN 44 H (9-20) mg/dL Glucose 112 H (74-99) mg/dL Calcium 8.3 L (8.4-10.2) mg/dL Microbiology - Last 24 Hours (Table) 04/28/22 21:42 Gram Stain - Preliminary Sputum Sputum Culture - Preliminary Assessment and Plan Plan: Acute hypoxemic respiratory failure, with progressive shortness of breath, secondary to both COPD exacerbation, and CHF.dominantly secondary to COPD exacerbation. The patient is currently on a combination of bronchodilators and steroids. History of atrial fibrillation.the patient's rate is controlled and the patient is on long-term anticoagulation with Eliquis. History of hypertension. History of heavy tobacco use. History of acute kidney injury, improved and the patient is on a combination of diuretics including Lasix and Aldactone History of alcohol abuse. Plan: clinically improving, the patient remains on oxygen at 3 L/m nasal cannula Continue same treatment for now including a combination of bronchodilators and steroids continue diuretics for now continue BIPAP And monitor renal function and we'll continue to follow
--- NOTE | 2022-04-30 14:27 | P.PN ---
Subjective Progress Note Date: 04/30/22 Acute hypoxemic respiratory failure, with progressive shortness of breath, secondary to both COPD exacerbation, and CHF Acute exacerbation CHF Acute exacerbation COPD 51-year-old male, history of hypertension, COPD, atrial fibrillation, presenting to the emergency department with concerns with difficulty in breathing. Symptoms have progressively the past couple of days. Patient was in the hospital a couple weeks ago with congestive heart failure and atrial fibrillation. Patient does have history of COPD however that is not similar to this. Patient does have cough with occasional estrella sputum. No fevers. Patient does have some edema still. Patient states he is on furosemide. Workup including EKG completed in ED reveals atrial fibrillation with RVR with nonspecific ST and T wave changes Chest x-ray reveals cardiomegaly and interstitial edema Blood work reveals sodium 136, potassium 3.3, BUN/creatinine of 36/0.79, WBC 11.0, hemoglobin of 13.6, and platelet count of 110 04/29/2022 Patient is seen and evaluated in room at bedside Currently, he is on 3 L. He is getting saline at KVO. He's on a Cardizem drip at 5 mg an hour for his atrial fibrillation. The patient has been seen by cardiology. Additional recommendations and suggestions are forthcoming. He is currently on budesonide, formoterol, albuterol sulfate, and ipratropium bromide, and Solu-Medrol. Patient has been evaluated by cardiology-- He continues to be in atrial fibrillation with overall controlled heart rate on the current dose of atenolol. Hemodynamically he is hypotensive. Currently he is on Lasix IV. He still requires liters of oxygen to maintain saturation above 90s. Otherwise he does have diminished breathing sounds bilaterally and very mild bilateral lower extremities edema. He is also on oral anticoagulation. At this point I'm going to decrease the dose of Lasix IV in the light of low blood pressure and worsening kidney function. Continue beta priscilla and continue oral anticoagulation. Continue monitor the kidney function and electrolytes and follow-up with the patient. 04/30/2022 Patient is seen and evaluated and follow-up this morning with pulmonary and cardiology following. Patient is currently sitting up at the site of the bed continues to be dyspneic with minimal exertion. Patient is continued on 3 L via nasal cannula and reports he recently started requiring oxygen. Patient was on Cardizem drip for atrial fibrillation and being transitioned to oral beta priscilla and is also anticoagulated with eliquis. Patient having all over arthritic pain will add Tylenol and also something for his cough. Patient is afebrile denies chest pain or palpitations. Patient continues to report shortness of breath although feels minimally improved from previous. No reports of nausea or vomiting and patient is tolerating diet. Review of systems: Constitutional: No reports of fatigue, fever, or chills Cardiovascular: No reports of chest pain or palpitations Respiratory: No reports of worsening shortness of breath, reports dyspnea with minimal exertion and also reports cough GI: No reports of nausea, vomiting, or diarrhea : No reports of dysuria or retention Neurovascular: No reports of weakness or numbness All medications have been reviewed Physical exam: Gen: This is a 51-year-old male awake, alert and oriented 3, well-developed, well-nourished, obese. HEENT: Head is atraumatic, normocephalic. Pupils equal, round. Sclerae is anicteric. NECK: Supple. No JVD. No lymphadenopathy. No thyromegaly. LUNGS: Manage breath sounds bilaterally with some scattered rhonchi and some expiratory wheezing noted. No intercostal retractions. HEART: Regular rate and rhythm. No murmur. ABDOMEN: Soft. Obese. Bowel sounds are present. No masses. No tenderness. EXTREMITIES: No pedal edema. No calf tenderness. NEUROLOGICAL: Patient is awake, alert and oriented x3. Cranial nerves 2 through 12 are grossly intact. Assessment: -Acute exacerbation CHF -Chronic obstructive pulmonary disease, acute exacerbation -Acute hypoxic respiratory failure secondary to a component of CHF and COPD exacerbation -Atrial fibrillation with RVR, currently rate controlled -Acute kidney injury most likely secondary to diuretics and Aldactone use, improving -Hypertension -Peripheral neuropathy -DVT prophylaxis -GI prophylaxis Plan: Patient continues on IV Lasix and will continue with cardiology following. Patient is also on Eliquis And being transitioned from IV Cardizem over to oral beta priscilla area and recommend continue telemetry monitoring. Pulmonary following as well maintained on DuoNeb treatments along with IV steroids.For COPD exacerbation Patient having some mild acute kidney injury although improved today at 1.05, BUN is 44. Recommend to replace electrolytes per protocol as potassium was found to be 3.3 today. Will follow-up with repeat labs Patient having generalized pain in all of his joints will continue with Lyrica and add Tylenol encouraged to increase activity as tolerated. Recommend follow-up labs in the a.m. and will continue to monitor closely. The impression and plan of care has been dictated by Cathleen Spear, Nurse Practitioner as directed. Dr. Nadine MD I have performed a history and examination and MDM of this patient, discussed the same with the dictator, and agree with the dictator's assessment and plan as written ,documented as a scribe. Based on total visit time, I have performed more than 50% of the visit. Objective - Vital Signs Vital signs: Vital Signs Temp 98.2 F 04/30/22 08:15 Pulse 77 04/30/22 11:28 Resp 18 04/30/22 08:15 BP 124/58 04/30/22 08:15 Pulse Ox 94 L 04/30/22 08:15 FiO2 40 04/30/22 03:03 Intake & Output 04/29/22 04/30/22 04/30/22 18:59 06:59 18:59 Intake Total 480 125 180 Output Total 1250 Balance -770 125 180 Weight 109.9 kg Intake: Intake, IV Titration 125 Amount Diltiazem 125 mg In 125 Sodium Chloride 0.9% 100 ml @ 10 MG/HR 10 mls/hr IV .[id number] [facility] Rx#: [id number] Oral 480 180 Output: Urine 1250 Other: Voiding Method Toilet # Voids 500 - Labs CBC & Chem 7: 04/28/22 07:23 04/30/22 07:22 Labs: Abnormal Lab Results - Last 24 Hours (Table) 04/30/22 Range/Units 07:22 Sodium 135 L (137-145) mmol/L Potassium 3.3 L (3.5-5.1) mmol/L Chloride 88 L (98-107) mmol/L Carbon Dioxide 40 H (22-30) mmol/L BUN 44 H (9-20) mg/dL Glucose 112 H (74-99) mg/dL Calcium 8.3 L (8.4-10.2) mg/dL Microbiology - Last 24 Hours (Table) 04/28/22 21:42 Gram Stain - Preliminary Sputum Sputum Culture - Preliminary
[2022-04-30] MEDS: MELATONIN 5 MG TABLET PO SCH (20:46)
[2022-04-30] MEDS: METOPROLOL SUCCINATE (ER) 50 MG TAB.ER.24H PO SCH (20:46)
[2022-04-30] MEDS: LORazepam 0.5 MG TAB PO PRN (20:55)
[2022-05-01] MEDS: methylPREDNISolone SOD SUCCI 125 MG/2 ML VIAL IV SCH (06:33)
[2022-05-01] MEDS: IPRATROPIUM-ALBUTEROL 3 ML NEB INHALATION SCH ×4 (07:32→20:42)
[2022-05-01] MEDS: FORMOTEROL FUMARATE 20 MCG/2 ML NEBU INHALATION SCH ×2 (07:32→20:42)
[2022-05-01] MEDS: BUDESONIDE 1 MG/2 ML NEBU INHALATION SCH ×2 (07:32→20:42)
[2022-05-01] MEDS: SPIRONOLACTONE 25 MG TAB PO SCH (09:06)
[2022-05-01] MEDS: FAMOTIDINE 20 MG TAB PO SCH ×2 (09:06→20:03)
[2022-05-01] MEDS: acetaZOLAMIDE 250 MG TAB PO SCH ×2 (09:06→20:03)
[2022-05-01] MEDS: PREGABALIN 100 MG CAP PO SCH ×2 (09:06→20:03)
[2022-05-01] MEDS: APIXABAN 5 MG TAB PO SCH ×2 (09:06→20:02)
[2022-05-01] MEDS: METOPROLOL SUCCINATE (ER) 50 MG TAB.ER.24H PO SCH ×2 (09:06→20:03)
[2022-05-01] MEDS: POTASSIUM CHLORIDE ER 10 MEQ TAB.ER.PRT PO SCH (09:06)
[2022-05-01] MEDS: FUROSEMIDE 10 MG/ML 2 ML VIAL IV SCH (09:07)
[2022-05-01] MEDS: NICOTINE 21MG/24HR PATCH TRANSDERM SCH (09:07)
[2022-05-01] MEDS: guaiFENesin SYRUP 100MG/5ML 200 MG/10 ML CUP PO PRN (09:13)
[2022-05-01] MEDS: LORazepam 0.5 MG TAB PO PRN ×2 (09:13→21:19)
[2022-05-01 10:28] LABS: Calcium 8.8 mg/dL (8.4-10.2)
[2022-05-01 10:33] LABS: Potassium 2.7 mmol/L (3.5-5.1)
[2022-05-01] MEDS ORDERED: Potassium Replacement Protocol 1 EACH MISC MISCELLANE PRN (10:41)
[2022-05-01] MEDS: POTASSIUM CHLORIDE ER 20 MEQ TAB.ER PO SCH ×2 (10:58→12:35)
[2022-05-01] MEDS: AZITHROMYCIN 500 MG TAB PO SCH (12:36)
--- NOTE | 2022-05-01 13:07 | P.PN ---
Subjective Progress Note Date: 05/01/22 This is a 51-year-old male with a history of chronic tobacco use, quit smoking last month and prior history of alcohol intake for which he quit 14 years ago. Presented with symptoms of progressive dyspnea and CHF. He was recently in the hospital with atrial flutter and underwent cardioversion and was found to have an ejection fraction of 40-45%. He continues to be in atrial fibrillation this admission heart rate is controlled. Overall his breathing is feeling slightly better. Continues to have productive cough. Labs this morning showed potassium 2.7, BUN of 39 creatinine 1.13. Potassium supplementation has been ordered. Objective - Vital Signs Vital signs: Vital Signs Temp 97.8 F 05/01/22 04:15 Pulse 84 05/01/22 08:02 Resp 16 05/01/22 08:00 BP 109/63 05/01/22 08:00 Pulse Ox 95 05/01/22 08:00 FiO2 40 05/01/22 04:12 Intake & Output 04/30/22 05/01/22 05/01/22 18:59 06:59 18:59 Intake Total 540 358 Output Total 2905 549 5611 Balance -560 -825 -1142 Weight 108.8 kg Intake: Oral 540 358 Output: Urine 7093 658 3389 Other: Voiding Method Toilet Toilet Toilet Urinal Urinal Urinal # Voids 3 - Exam HEENT: Head is atraumatic, normocephalic. Pupils are equal, round. Sclerae anicteric. Conjunctivae are clear. Mucous membranes of the mouth are moist. Neck is supple. There is no elevated jugular venous pressure. No carotid bruit is heard. CHEST EXAMINATION: Clear to auscultation bilaterally. No wheezes rales or rhonchi. Respirations even and nonlabored. HEART EXAMINATION: Heart regular, with significant systolic ejection murmur consistent with severe aortic stenosis. ABDOMEN: Soft, nontender. Bowel sounds are heard. No organomegaly noted. EXTREMITIES: 2+ peripheral pulses with no evidence of peripheral edema and no calf tenderness noted. NEUROLOGIC EXAMINATION: Patient is awake, alert and oriented x1-2. - Labs CBC & Chem 7: 04/28/22 07:23 05/01/22 09:44 Labs: Abnormal Lab Results - Last 24 Hours (Table) 05/01/22 Range/Units 09:44 Sodium 136 L (137-145) mmol/L Potassium 2.7 L* (3.5-5.1) mmol/L Chloride 91 L (98-107) mmol/L Carbon Dioxide 35 H (22-30) mmol/L BUN 39 H (9-20) mg/dL Glucose 130 H (74-99) mg/dL Microbiology - Last 24 Hours (Table) 04/28/22 21:42 Gram Stain - Preliminary Sputum Sputum Culture - Final Moraxella(branhamella) catarra Assessment and Plan Assessment: 1. Worsening dyspnea with a combination of exacerbation of COPD and CHF with mildly to moderately impaired systolic function 2. Atrial fibrillation, anticoagulated 3. Prior history of chronic tobacco use 4. Prior history of alcohol intake Plan: From cardiology's perspective medications were reviewed agree with transitioning to oral Lasix. Renal function is stable we will add Farxiga. Continue to monitor renal function, electrolytes, daily weights and intake and output. We will continue to follow the patient and provide further recommendations accordingly. 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 Patient was seen and examined.
[2022-05-01] MEDS ORDERED: POTASSIUM CHLORIDE ER 20 MEQ TAB.ER PO STA (13:26)
--- NOTE | 2022-05-01 14:57 | P.PN ---
Subjective Progress Note Date: 05/01/22 51-year-old male seen in the emergency department with complaints of shortness of breath. His primary care provider is Dr. Milton Arias. The patient was recently in the hospital between April 12, and April 16. He was also over at [facility] for a week or 10 days. The patient presents with progressive and increasing shortness of breath. In addition, the patient complains of cough, and minimal phlegm production. No fever. No chills. The phlegm that he does produce has a estrella color to it. He denied any chest pain or chest discomfort. The patient recently quit smoking. I believe he was seen by my partner on his previous admission here, in late March. He has a history of COPD, atrial fibrillation, and hypertension. White count 9.6, hemoglobin 13.3, hematocrit 44.5, and platelet count 226,000. Sodium 132, potassium 2.8, chlorides 84, CO2 42, BUN 51, and creatinine 1.58. Chest x-ray on admission in my opinion was consistent with cardiomegaly, and CHF. On 04/30/2022, the patient is slightly improved. He is still struggling with his breathing is still on oxygen at 3 L nasal cannula. He also has a BiPAP machine at the bedside at a pressure of 12/5 with an FiO2 of 40%. He is on DuoNeb nebulized treatments [id number], Pulmicort Respules, Perforomist otherwise treatments and IV Solu-Medrol 60 mg every 6 hours. He remains on a combination of diuretics. He is currently on Lasix 20 mg IV every 12 hours is also on Aldactone. He is also on Diamox for her chronic metabolic alkalosis. He remains on long-term anticoagulation withEliquis and he is taking it for chronic atrial fibrillation. The patient is seen today 05/01/2022 in follow-up on the elective care unit. He is currently sitting up at the bedside. Awake and alert in no acute distress. He denies any worsening shortness of breath, cough or congestion. No chest pain or palpitations. He is maintaining O2 saturations in the mid 90s on 3 L/m per nasal cannula. 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 Sodium 136. Potassium 2.7. Bicarb 35. BUN 39. Creatinine 1.13. Glucose 130. He remains on DuoNeb inhalations, Pulmicort and Perforomist inhalations IV site Medrol. Remains on oral diuretics. Continued on Diamox. Anticoagulated with Eliquis. NicoDerm patch in place. Objective - Vital Signs Vital signs: Vital Signs Temp 97.8 F 05/01/22 04:15 Pulse 81 05/01/22 12:00 Resp 16 05/01/22 14:00 BP 109/65 05/01/22 12:00 Pulse Ox 95 05/01/22 12:00 FiO2 40 05/01/22 04:12 Intake & Output 04/30/22 05/01/22 05/01/22 18:59 06:59 18:59 Intake Total 540 476 Output Total 8418 249 8932 Balance -551 -095 -7850 Weight 108.8 kg Intake: Oral 540 476 Output: Urine 2825 197 9210 Other: Voiding Method Toilet Toilet Toilet Urinal Urinal Urinal # Voids 3 - Exam GENERAL EXAM: Alert, pleasant 51-year-old male, on 3 L nasal cannula, comfortable in no apparent distress. HEAD: Normocephalic. EYES: Normal reaction of pupils, equal size. NOSE: Clear with pink turbinates. THROAT: No erythema or exudates. NECK: No masses, no JVD. CHEST: No chest wall deformity. LUNGS: Equal air entry with crackles in the bases, diminished. CVS: S1 and S2 normal with no audible murmur, regular rhythm. ABDOMEN: No hepatosplenomegaly, normal bowel sounds, no guarding or rigidity. SPINE: No scoliosis or deformity SKIN: No rashes CENTRAL NERVOUS SYSTEM: No focal deficits, tone is normal in all 4 extremities. EXTREMITIES: There is trace peripheral edema. No clubbing, no cyanosis. Peripheral pulses are intact. - Labs CBC & Chem 7: 04/28/22 07:23 05/01/22 09:44 Labs: Abnormal Lab Results - Last 24 Hours (Table) 05/01/22 Range/Units 09:44 Sodium 136 L (137-145) mmol/L Potassium 2.7 L* (3.5-5.1) mmol/L Chloride 91 L (98-107) mmol/L Carbon Dioxide 35 H (22-30) mmol/L BUN 39 H (9-20) mg/dL Glucose 130 H (74-99) mg/dL Microbiology - Last 24 Hours (Table) 04/28/22 21:42 Gram Stain - Final Sputum Sputum Culture - Final Moraxella(branhamella) catarra Assessment and Plan Assessment: Acute hypoxemic respiratory failure, with progressive shortness of breath, secondary to both COPD exacerbation, and CHF.dominantly secondary to COPD exacerbation. The patient is currently on a combination of bronchodilators and steroids. History of atrial fibrillation.the patient's rate is controlled and the patient is on long-term anticoagulation with Eliquis. History of hypertension. History of heavy tobacco use. History of acute kidney injury, improved and the patient is on a combination of diuretics including Lasix and Aldactone History of alcohol abuse. Plan: The patient was seen and evaluated Labs and medications reviewed Correct electrolytes Discontinue IV Solu-Medrol Initiated a prednisone taper Continue diuretics, Diamox Titrate the FiO2 as tolerated Educated regarding the importance of complete smoking cessation NicoDerm patch in place We will continue to follow I have personally seen and examined the patient, performed the documentation and the assessment and plan as written. Number of minutes spent on the visit: 10. Joint evaluation that was done along with the nurse practitioner. Again the above-mentioned plan. Evaluation was done in more than 20 minutes is advancing 20
--- NOTE | 2022-05-01 16:13 | P.PN ---
Subjective Progress Note Date: 05/01/22 Acute hypoxemic respiratory failure, with progressive shortness of breath, secondary to both COPD exacerbation, and CHF Acute exacerbation CHF Acute exacerbation COPD 51-year-old male, history of hypertension, COPD, atrial fibrillation, presenting to the emergency department with concerns with difficulty in breathing. Symptoms have progressively the past couple of days. Patient was in the hospital a couple weeks ago with congestive heart failure and atrial fibrillation. Patient does have history of COPD however that is not similar to this. Patient does have cough with occasional estrella sputum. No fevers. Patient does have some edema still. Patient states he is on furosemide. Workup including EKG completed in ED reveals atrial fibrillation with RVR with nonspecific ST and T wave changes Chest x-ray reveals cardiomegaly and interstitial edema Blood work reveals sodium 136, potassium 3.3, BUN/creatinine of 36/0.79, WBC 11.0, hemoglobin of 13.6, and platelet count of 110 04/29/2022 Patient is seen and evaluated in room at bedside Currently, he is on 3 L. He is getting saline at KVO. He's on a Cardizem drip at 5 mg an hour for his atrial fibrillation. The patient has been seen by cardiology. Additional recommendations and suggestions are forthcoming. He is currently on budesonide, formoterol, albuterol sulfate, and ipratropium bromide, and Solu-Medrol. Patient has been evaluated by cardiology-- He continues to be in atrial fibrillation with overall controlled heart rate on the current dose of atenolol. Hemodynamically he is hypotensive. Currently he is on Lasix IV. He still requires liters of oxygen to maintain saturation above 90s. Otherwise he does have diminished breathing sounds bilaterally and very mild bilateral lower extremities edema. He is also on oral anticoagulation. At this point I'm going to decrease the dose of Lasix IV in the light of low blood pressure and worsening kidney function. Continue beta priscilla and continue oral anticoagulation. Continue monitor the kidney function and electrolytes and follow-up with the patient. 04/30/2022 Patient is seen and evaluated and follow-up this morning with pulmonary and cardiology following. Patient is currently sitting up at the site of the bed continues to be dyspneic with minimal exertion. Patient is continued on 3 L via nasal cannula and reports he recently started requiring oxygen. Patient was on Cardizem drip for atrial fibrillation and being transitioned to oral beta priscilla and is also anticoagulated with eliquis. Patient having all over arthritic pain will add Tylenol and also something for his cough. Patient is afebrile denies chest pain or palpitations. Patient continues to report shortness of breath although feels minimally improved from previous. No reports of nausea or vomiting and patient is tolerating diet. 05/01/2022 Patient is seen and evaluated in follow-up today being followed by pulmonary along with cardiology. Medications being adjusted and patient is being started on Farxiga per cardiology. Patient is also continued on DuoNeb treatments along with oral prednisone. Sputum culture showing moraxilla catarra with pulmonary following and patient is being started on Zithromax. Recommend continue with other medications along with Diamox and Lasix is also being transitioned to oral. Potassium critically low at 2.7 and recommend follow-up labs and potassium replacement per protocol. Patient is afebrile denies chest pain or worsening shortness of breath. Patient denies nausea or vomiting and tolerating diet. IV steroids being transitioned oral prednisone starting at 40 mg daily and will likely require a prednisone taper on discharge. Patient is currently maintained on 3 L via nasal cannula. Planning for possible discharge in the next 24-48 hours. Current increase activity as tolerated. Review of systems: Constitutional: No reports of fatigue, fever, or chills Cardiovascular: No reports of chest pain or palpitations Respiratory: No reports of worsening shortness of breath, reports dyspnea with minimal exertion and also reports cough GI: No reports of nausea, vomiting, or diarrhea : No reports of dysuria or retention Neurovascular: No reports of weakness or numbness All medications have been reviewed Physical exam: Gen: This is a 51-year-old male awake, alert and oriented 3, well-developed, well-nourished, obese. HEENT: Head is atraumatic, normocephalic. Pupils equal, round. Sclerae is anicteric. NECK: Supple. No JVD. No lymphadenopathy. No thyromegaly. LUNGS: Diminished breath sounds bilaterally with some scattered rhonchi noted. No intercostal retractions. HEART: Regular rate and rhythm. No murmur. ABDOMEN: Soft. Obese. Bowel sounds are present. No masses. No tenderness. EXTREMITIES: No pedal edema. No calf tenderness. NEUROLOGICAL: Patient is awake, alert and oriented x3. Cranial nerves 2 through 12 are grossly intact. Assessment: -Acute exacerbation CHF, acute on chronic with mildly to moderately impaired systolic function -Chronic obstructive pulmonary disease, acute exacerbation -Acute hypoxic respiratory failure secondary to a component of CHF and COPD exacerbation -Atrial fibrillation with RVR, currently rate controlled -Acute kidney injury most likely secondary to diuretics and Aldactone use, improving -Hypertension -Peripheral neuropathy -DVT prophylaxis -GI prophylaxis Plan: Patient was continued on IV Lasix and transitioned to oral and will continue with cardiology following. Farxiga also being added. Patient is also on Eliquis and will continue telemetry monitoring Pulmonary following as well maintained on DuoNeb treatments along with IV steroids at are now being transitioned oral prednisone.For COPD exacerbation, sputum culture as mentioned above being started on Zithromax Recommend to replace electrolytes per protocol as potassium was found to be 2.7 today. Recommend protocol in addition to another 40 Meq of potassium and will increase daily supplementation. Will follow-up with repeat labs Encouraged increased activity as tolerated Continue done 3 L via nasal cannula and recommend continue supplemental oxygen as needed. Cardiology recommending another 24 hours of close monitoring and will consider possible discharge in the next 24-48 hours. Recommend follow-up labs in the a.m. and will continue to monitor closely. The impression and plan of care has been dictated by Cathleen Spear, Nurse Practitioner as directed. Dr. Nadine MD I have performed a history and examination and MDM of this patient, discussed the same with the dictator, and agree with the dictator's assessment and plan as written ,documented as a scribe. Based on total visit time, I have performed more than 50% of the visit. Objective - Vital Signs Vital signs: Vital Signs Temp 97.8 F 05/01/22 04:15 Pulse 81 05/01/22 12:00 Resp 16 05/01/22 12:00 BP 109/65 05/01/22 12:00 Pulse Ox 95 05/01/22 12:00 FiO2 40 05/01/22 04:12 Intake & Output 04/30/22 05/01/22 05/01/22 18:59 06:59 18:59 Intake Total 540 476 Output Total 5887 216 8188 Balance -144 -022 -3954 Weight 108.8 kg Intake: Oral 540 476 Output: Urine 2509 374 8996 Other: Voiding Method Toilet Toilet Toilet Urinal Urinal Urinal # Voids 3 - Labs CBC & Chem 7: 04/28/22 07:23 05/01/22 09:44 Labs: Abnormal Lab Results - Last 24 Hours (Table) 05/01/22 Range/Units 09:44 Sodium 136 L (137-145) mmol/L Potassium 2.7 L* (3.5-5.1) mmol/L Chloride 91 L (98-107) mmol/L Carbon Dioxide 35 H (22-30) mmol/L BUN 39 H (9-20) mg/dL Glucose 130 H (74-99) mg/dL Microbiology - Last 24 Hours (Table) 04/28/22 21:42 Gram Stain - Final Sputum Sputum Culture - Final Moraxella(branhamella) catarra
[2022-05-01] MEDS: FUROSEMIDE 40 MG TAB PO SCH (16:23)
[2022-05-01] MEDS: DAPAGLIFLOZIN PROPANEDIOL 10 MG TABLET PO SCH (16:23)
[2022-05-01] MEDS: MELATONIN 5 MG TABLET PO SCH (21:19)
[2022-05-02] MEDS ORDERED: METOPROLOL SUCCINATE (ER) 25 MG TAB.ER.24H PO STA ×2 (00:43→14:18)
[2022-05-02] MEDS: BUDESONIDE 1 MG/2 ML NEBU INHALATION SCH ×2 (07:37→19:43)
[2022-05-02] MEDS: IPRATROPIUM-ALBUTEROL 3 ML NEB INHALATION SCH ×4 (07:37→19:44)
[2022-05-02] MEDS: FORMOTEROL FUMARATE 20 MCG/2 ML NEBU INHALATION SCH ×2 (07:37→19:44)
[2022-05-02 08:33] LABS: Magnesium 2.3 mg/dL (1.6-2.3); Potassium 3.1 mmol/L (3.5-5.1)
[2022-05-02] MEDS ORDERED: POTASSIUM CHLORIDE ER 20 MEQ TAB.ER PO SCH (09:00)
[2022-05-02] MEDS ORDERED: Potassium Replacement Protocol 1 EACH MISC MISCELLANE PRN (09:03)
[2022-05-02] MEDS: predniSONE 20 MG TAB PO SCH (10:11)
[2022-05-02] MEDS: APIXABAN 5 MG TAB PO SCH ×2 (10:11→21:24)
[2022-05-02] MEDS: SPIRONOLACTONE 25 MG TAB PO SCH (10:11)
[2022-05-02] MEDS: NICOTINE 21MG/24HR PATCH TRANSDERM SCH (10:11)
[2022-05-02] MEDS: FAMOTIDINE 20 MG TAB PO SCH ×2 (10:12→21:23)
[2022-05-02] MEDS: FUROSEMIDE 40 MG TAB PO SCH ×2 (10:12→17:23)
[2022-05-02] MEDS: AZITHROMYCIN 500 MG TAB PO SCH (10:12)
[2022-05-02] MEDS: PREGABALIN 100 MG CAP PO SCH ×2 (10:12→21:23)
[2022-05-02] MEDS: acetaZOLAMIDE 250 MG TAB PO SCH ×2 (10:12→21:23)
[2022-05-02] MEDS: POTASSIUM CHLORIDE ER 20 MEQ TAB.ER PO SCH ×3 (10:12→18:36)
[2022-05-02] MEDS: DAPAGLIFLOZIN PROPANEDIOL 10 MG TABLET PO SCH (10:12)
--- NOTE | 2022-05-02 10:56 | P.PN ---
Subjective Progress Note Date: 05/02/22 PROGRESS NOTE The patient is a 51-year-old male with a history of chronic tobacco and alcohol intake who presented with symptoms of progressive dyspnea and CHF. He was recently in the hospital was atrial flutter and underwent cardioversion, was found to have an ejection fraction of 40-45%. He continues to be dyspneic, slightly better. He is in atrial fibrillation with controlled ventricular response. He denies any dizziness or palpitations. He has not been smoking since his admission last time. He continues to have a cough, productive. May 02: The patient is feeling better today, anxious to go home. He denies any chest discomfort, dizziness or palpitations. He denies any nausea or vomiting. He is ambulating without difficulties. He continues to be in atrial fibrillation was controlled ventricular response. Medications: Lasix 40 mg by mouth twice a day, metolazone 10 mg daily, ,Eliquis 5 mg twice a day, DuoNeb, nicotine patch, Diamox 250 mg twice a day, Farxiga 10 mg daily, l isinopril 2.5 milligrams twice a day, metoprolol succinate 75 mg twice a day, Aldactone 25 mg daily. PHYSICAL EXAMINATION: Blood pressure 117/60 heart rate 80 LUNGS: Clear with no wheezes HEART: Irregular rate and rhythm, S1, S2. No S3. No systolic murmur ABDOMEN: Soft, nontender, no organomegaly EXTREMETIES: Trace edema LAB: Potassium 3.1, BUN 44, creatinine 1.33 IMPRESSION: 1. Worsening dyspnea with a combination of exacerbation of COPD and CHF with mildly to moderately impaired systolic function 2. Atrial fibrillation, anticoagulated 3. Prior history of chronic tobacco use 4. Prior history of alcohol intake PLAN: 1. Continue present therapy 2. Probable discharge home today and follow-up in one week 3. Follow renal function as an outpatient 4. Alcohol and tobacco cessation Objective - Vital Signs Vital signs: Vital Signs Temp 98.1 F 05/02/22 08:00 Pulse 82 05/02/22 08:04 Resp 18 05/02/22 08:00 BP 117/68 05/02/22 08:00 Pulse Ox 99 05/02/22 08:00 FiO2 40 05/02/22 04:00 Intake & Output 05/01/22 05/02/22 05/02/22 18:59 06:59 18:59 Intake Total 716 360 Output Total 3850 975 Balance -0402 -197 360 Weight 108.1 kg Intake: Oral 716 360 Output: Urine 3850 975 Other: Voiding Method Toilet Urinal Urinal # Voids 1 - Labs CBC & Chem 7: 04/28/22 07:23 05/02/22 06:57 Labs: Abnormal Lab Results - Last 24 Hours (Table) 05/02/22 Range/Units 06:57 Sodium 135 L (137-145) mmol/L Potassium 3.1 L (3.5-5.1) mmol/L Chloride 90 L (98-107) mmol/L Carbon Dioxide 38 H (22-30) mmol/L BUN 44 H (9-20) mg/dL Creatinine 1.33 H (0.66-1.25) mg/dL Microbiology - Last 24 Hours (Table) 04/28/22 21:42 Gram Stain - Final Sputum Sputum Culture - Final Moraxella(branhamella) catarra
--- NOTE | 2022-05-02 16:20 | P.PN ---
Subjective Progress Note Date: 05/02/22 51-year-old male seen in the emergency department with complaints of shortness of breath. His primary care provider is Dr. Milton Arias. The patient was recently in the hospital between April 12, and April 16. He was also over at [facility] for a week or 10 days. The patient presents with progressive and increasing shortness of breath. In addition, the patient complains of cough, and minimal phlegm production. No fever. No chills. The phlegm that he does produce has a estrella color to it. He denied any chest pain or chest discomfort. The patient recently quit smoking. I believe he was seen by my partner on his previous admission here, in late March. He has a history of COPD, atrial fibrillation, and hypertension. White count 9.6, hemoglobin 13.3, hematocrit 44.5, and platelet count 226,000. Sodium 132, potassium 2.8, chlorides 84, CO2 42, BUN 51, and creatinine 1.58. Chest x-ray on admission in my opinion was consistent with cardiomegaly, and CHF. On 04/30/2022, the patient is slightly improved. He is still struggling with his breathing is still on oxygen at 3 L nasal cannula. He also has a BiPAP machine at the bedside at a pressure of 12/5 with an FiO2 of 40%. He is on DuoNeb nebulized treatments [id number], Pulmicort Respules, Perforomist otherwise treatments and IV Solu-Medrol 60 mg every 6 hours. He remains on a combination of diuretics. He is currently on Lasix 20 mg IV every 12 hours is also on Aldactone. He is also on Diamox for her chronic metabolic alkalosis. He remains on long-term anticoagulation withEliquis and he is taking it for chronic atrial fibrillation. The patient is seen today 05/01/2022 in follow-up on the elective care unit. He is currently sitting up at the bedside. Awake and alert in no acute distress. He denies any worsening shortness of breath, cough or congestion. No chest pain or palpitations. He is maintaining O2 saturations in the mid 90s on 3 L/m per nasal cannula. 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 Sodium 136. Potassium 2.7. Bicarb 35. BUN 39. Creatinine 1.13. Glucose 130. He remains on DuoNeb inhalations, Pulmicort and Perforomist inhalations IV site Medrol. Remains on oral diuretics. Continued on Diamox. Anticoagulated with Eliquis. NicoDerm patch in place. On 05/02/2022, the patient is essentially stable. The patient is having issues with A. fib fibrillation with rapid ventricular response. Production Zone Leader on the case. The patient is on metoprolol 75 mg by mouth twice a day an anticoagulation with Eliquis. I added Zithromax regarding Moraxella in his sputum. He is doing well with diuresis. He is doing well regarding his COPD. He has advanced COPD. He remains on bronchodilators. He is on a prednisone burst taper for now. No new complaints. No chest pain. The electrolytes are all stable and the creatinine is at 1.33 with a BUN of 44 and a sodium level of 135 and a potassium level needs to be replaced at 3.1. Objective - Vital Signs Vital signs: Vital Signs Temp 98.5 F 05/02/22 16:00 Pulse 186 H 05/02/22 16:00 Resp 17 05/02/22 16:00 BP 108/72 05/02/22 16:00 Pulse Ox 99 05/02/22 16:00 FiO2 40 05/02/22 04:00 Intake & Output 05/01/22 05/02/22 05/02/22 18:59 06:59 18:59 Intake Total 716 960 Output Total 3850 975 550 Balance -3134 -975 410 Weight 108.1 kg Intake: Oral 716 960 Output: Urine 3850 975 550 Other: Voiding Method Toilet Urinal Urinal Urinal # Voids 1 - Exam GENERAL EXAM: Alert, pleasant 51-year-old male, on 3 L nasal cannula, c omfortable in no apparent distress. HEAD: Normocephalic. EYES: Normal reaction of pupils, equal size. NOSE: Clear with pink turbinates. THROAT: No erythema or exudates. NECK: No masses, no JVD. CHEST: No chest wall deformity. LUNGS: Equal air entry with crackles in the bases, diminished. CVS: S1 and S2 normal with no audible murmur, regular rhythm. ABDOMEN: No hepatosplenomegaly, normal bowel sounds, no guarding or rigidity. SPINE: No scoliosis or deformity SKIN: No rashes CENTRAL NERVOUS SYSTEM: No focal deficits, tone is normal in all 4 extremities. EXTREMITIES: There is trace peripheral edema. No clubbing, no cyanosis. Peripheral pulses are intact. - Labs CBC & Chem 7: 04/28/22 07:23 05/02/22 06:57 Labs: Abnormal Lab Results - Last 24 Hours (Table) 05/02/22 Range/Units 06:57 Sodium 135 L (137-145) mmol/L Potassium 3.1 L (3.5-5.1) mmol/L Chloride 90 L (98-107) mmol/L Carbon Dioxide 38 H (22-30) mmol/L BUN 44 H (9-20) mg/dL Creatinine 1.33 H (0.66-1.25) mg/dL Microbiology - Last 24 Hours (Table) 04/28/22 21:42 Gram Stain - Final Sputum Sputum Culture - Final Moraxella(branhamella) catarra Assessment and Plan Plan: Acute hypoxemic respiratory failure, with progressive shortness of breath, secondary to both COPD exacerbation, and CHF.dominantly secondary to COPD exacerbation. The patient is currently on a combination of bronchodilators and steroids. History of atrial fibrillation.the patient's rate is controlled and the patient is on long-term anticoagulation with Eliquis. The patient's current heart is still tachycardic and cardiology was informed. Patient remains on metoprolol anticoagulation with Eliquis. History of hypertension. History of heavy tobacco use. History of acute kidney injury, improved and the patient is on a combination of diuretics including Lasix and Aldactone History of alcohol abuse. Plan: We'll keep the patient hospital for more effective heart rate is controlled with underlying atrial fibrillation clinically improving, the patient remains on oxygen at 3 L/m nasal cannula Continue same treatment for now including a combination of bronchodilators and steroids, the patient was started on a prednisone burst taper continue diuretics for now and the patient is currently on Lasix 40 mg by mouth twice a day continue BIPAP overnight And monitor renal function we'll continue to follow
[2022-05-02] MEDS: MELATONIN 5 MG TABLET PO SCH (21:23)
[2022-05-02] MEDS: METOPROLOL SUCCINATE (ER) 25 MG TAB.ER.24H PO SCH (21:23)
[2022-05-02] MEDS: LORazepam 0.5 MG TAB PO PRN (21:24)
--- NOTE | 2022-05-03 00:22 | P.PN ---
Subjective Progress Note Date: 05/03/22 Acute hypoxemic respiratory failure, with progressive shortness of breath, secondary to both COPD exacerbation, and CHF Acute exacerbation CHF Acute exacerbation COPD 51-year-old male, history of hypertension, COPD, atrial fibrillation, presenting to the emergency department with concerns with difficulty in breathing. Symptoms have progressively the past couple of days. Patient was in the hospital a couple weeks ago with congestive heart failure and atrial fibrillation. Patient does have history of COPD however that is not similar to this. Patient does have cough with occasional estrella sputum. No fevers. Patient does have some edema still. Patient states he is on furosemide. Workup including EKG completed in ED reveals atrial fibrillation with RVR with nonspecific ST and T wave changes Chest x-ray reveals cardiomegaly and interstitial edema Blood work reveals sodium 136, potassium 3.3, BUN/creatinine of 36/0.79, WBC 11.0, hemoglobin of 13.6, and platelet count of 110 04/29/2022 Patient is seen and evaluated in room at bedside Currently, he is on 3 L. He is getting saline at KVO. He's on a Cardizem drip at 5 mg an hour for his atrial fibrillation. The patient has been seen by cardiology. Additional recommendations and suggestions are forthcoming. He is currently on budesonide, formoterol, albuterol sulfate, and ipratropium bromide, and Solu-Medrol. Patient has been evaluated by cardiology-- He continues to be in atrial fibrillation with overall controlled heart rate on the current dose of atenolol. Hemodynamically he is hypotensive. Currently he is on Lasix IV. He still requires liters of oxygen to maintain saturation above 90s. Otherwise he does have diminished breathing sounds bilaterally and very mild bilateral lower extremities edema. He is also on oral anticoagulation. At this point I'm going to decrease the dose of Lasix IV in the light of low blood pressure and worsening kidney function. Continue beta priscilla and continue oral anticoagulation. Continue monitor the kidney function and electrolytes and follow-up with the patient. 04/30/2022 Patient is seen and evaluated and follow-up this morning with pulmonary and cardiology following. Patient is currently sitting up at the site of the bed continues to be dyspneic with minimal exertion. Patient is continued on 3 L via nasal cannula and reports he recently started requiring oxygen. Patient was on Cardizem drip for atrial fibrillation and being transitioned to oral beta priscilla and is also anticoagulated with eliquis. Patient having all over arthritic pain will add Tylenol and also something for his cough. Patient is afebrile denies chest pain or palpitations. Patient continues to report shortness of breath although feels minimally improved from previous. No reports of nausea or vomiting and patient is tolerating diet. 05/01/2022 Patient is seen and evaluated in follow-up today being followed by pulmonary along with cardiology. Medications being adjusted and patient is being started on Farxiga per cardiology. Patient is also continued on DuoNeb treatments along with oral prednisone. Sputum culture showing moraxilla catarra with pulmonary following and patient is being started on Zithromax. Recommend continue with other medications along with Diamox and Lasix is also being transitioned to oral. Potassium critically low at 2.7 and recommend follow-up labs and potassium replacement per protocol. Patient is afebrile denies chest pain or worsening shortness of breath. Patient denies nausea or vomiting and tolerating diet. IV steroids being transitioned oral prednisone starting at 40 mg daily and will likely require a prednisone taper on discharge. Patient is currently maintained on 3 L via nasal cannula. Planning for possible discharge in the next 24-48 hours. Current increase activity as tolerated. 05/02/2022 Patient is seen in follow-up this morning currently walking around in the room less dyspneic. Patient is continued on 2-3 L via nasal cannula. Patient being followed by cardiology along with pulmonary. Patient to continue with DuoNeb treatments and oral steroids but stable from pulmonary standpoint. Patient continues to have elevated heart rate with A. fib uncontrolled and medications being adjusted. Potassium also being replaced continues to be low at 3.0 and will replace and also increase daily supplements. Recommend repeat labs. Patient is afebrile with no reports of worsening shortness of breath or chest pain noted. Patient tolerating diet with no reports of nausea or vomiting noted . Review of systems: Constitutional: No reports of fatigue, fever, or chills Cardiovascular: No reports of chest pain or palpitations Respiratory: No reports of worsening shortness of breath, reports dyspnea with minimal exertion is improving GI: No reports of nausea, vomiting, or diarrhea : No reports of dysuria or retention Neurovascular: No reports of weakness or numbness All medications have been reviewed Physical exam: Gen: This is a 51-year-old male awake, alert and oriented 3, well-developed, well-nourished, obese. HEENT: Head is atraumatic, normocephalic. Pupils equal, round. Sclerae is anicteric. NECK: Supple. No JVD. No lymphadenopathy. No thyromegaly. LUNGS: Diminished breath sounds bilaterally with some scattered rhonchi noted. No intercostal retractions. HEART: S1, S2 are muffled, irregular ABDOMEN: Soft. Obese. Bowel sounds are present. No masses. No tenderness. EXTREMITIES: No pedal edema. No calf tenderness. NEUROLOGICAL: Patient is awake, alert and oriented x3. Cranial nerves 2 through 12 are grossly intact. Assessment: -Acute exacerbation CHF, acute on chronic with mildly to moderately impaired systolic function -Chronic obstructive pulmonary disease, acute exacerbation -Acute hypoxic respiratory failure secondary to a component of CHF and COPD exacerbation -Atrial fibrillation with RVR -Acute kidney injury most likely secondary to diuretics and Aldactone use, improving -Hypertension -Peripheral neuropathy -DVT prophylaxis -GI prophylaxis Plan: Recommend patient to continue with current medications with pulmonary and cardiology following. Farxiga recently added and patient has been transitioned oral Lasix along with Aldactone. Patient continues on 3 L and less dyspneic. Patient also anticoagulated and will continue with telemetry monitoring. Patient continues in A. fib uncontrolled with heart rates into the 140s and 160s today. Patient is not symptomatic of this. Potassium continues to be low at 3.0 today and will replace per protocol and have also increased daily supplementation. Pulmonary following and patient is maintained on DuoNeb treatments along with oral steroids and Zithromax. Patient to follow-up with pulmonary outpatient Encouraged increased activity as tolerated Continue done 3 L via nasal cannula and recommend continue supplemental oxygen as needed. Recommend telemetry monitoring and patient received an additional dose of Toprol today with cardiology recommending 24 hours of close monitoring with possible discharge in the a.m. Recommend follow-up labs in the a.m. and will continue to monitor closely. The impression and plan of care has been dictated by Cathleen Spear, Nurse Practitioner as directed. Dr. Nadine MD I have performed a history and examination and MDM of this patient, discussed the same with the dictator, and agree with the dictator's assessment and plan as written ,documented as a scribe. Based on total visit time, I have performed more than 50% of the visit. Objective - Vital Signs Vital signs: Vital Signs Temp 98.6 F 05/01/22 20:00 Pulse 82 05/02/22 08:04 Resp 17 05/02/22 04:00 BP 94/62 05/02/22 04:00 Pulse Ox 100 05/02/22 07:42 FiO2 40 05/02/22 04:00 Intake & Output 05/01/22 05/02/22 05/02/22 18:59 06:59 18:59 Intake Total 716 360 Output Total 3850 975 Balance -3134 -975 360 Weight 108.1 kg Intake: Oral 716 360 Output: Urine 3850 975 Other: Voiding Method Toilet Urinal Urinal # Voids 1 - Labs CBC & Chem 7: 04/28/22 07:23 05/02/22 06:57 Labs: Abnormal Lab Results - Last 24 Hours (Table) 05/01/22 05/02/22 Range/Units 09:44 06:57 Sodium 136 L 135 L (137-145) mmol/L Potassium 2.7 L* 3.1 L (3.5-5.1) mmol/L Chloride 91 L 90 L (98-107) mmol/L Carbon Dioxide 35 H 38 H (22-30) mmol/L BUN 39 H 44 H (9-20) mg/dL Creatinine 1.33 H (0.66-1.25) mg/dL Glucose 130 H (74-99) mg/dL Microbiology - Last 24 Hours (Table) 04/28/22 21:42 Gram Stain - Final Sputum Sputum Culture - Final Moraxella(branhamella) catarra
[2022-05-03] MEDS: BUDESONIDE 1 MG/2 ML NEBU INHALATION SCH ×2 (07:07→19:28)
[2022-05-03] MEDS: FORMOTEROL FUMARATE 20 MCG/2 ML NEBU INHALATION SCH ×2 (07:07→19:28)
[2022-05-03] MEDS: IPRATROPIUM-ALBUTEROL 3 ML NEB INHALATION SCH ×4 (07:07→19:29)
[2022-05-03 08:06] LABS: Calcium 8.3 mg/dL (8.4-10.2); Potassium 3.5 mmol/L (3.5-5.1)
[2022-05-03] MEDS: PREGABALIN 100 MG CAP PO SCH ×2 (09:25→21:52)
[2022-05-03] MEDS: NICOTINE 21MG/24HR PATCH TRANSDERM SCH (09:25)
[2022-05-03] MEDS: FUROSEMIDE 40 MG TAB PO SCH ×2 (09:26→17:01)
[2022-05-03] MEDS: SPIRONOLACTONE 25 MG TAB PO SCH (09:26)
[2022-05-03] MEDS: METOPROLOL SUCCINATE (ER) 25 MG TAB.ER.24H PO SCH ×2 (09:27→21:52)
[2022-05-03] MEDS: predniSONE 20 MG TAB PO SCH (09:27)
[2022-05-03] MEDS: POTASSIUM CHLORIDE ER 20 MEQ TAB.ER PO SCH (09:29)
[2022-05-03] MEDS: AZITHROMYCIN 500 MG TAB PO SCH (09:30)
[2022-05-03] MEDS: FAMOTIDINE 20 MG TAB PO SCH ×2 (09:30→21:52)
[2022-05-03] MEDS: DAPAGLIFLOZIN PROPANEDIOL 10 MG TABLET PO SCH (09:30)
[2022-05-03] MEDS: APIXABAN 5 MG TAB PO SCH ×2 (09:30→21:52)
[2022-05-03] MEDS: acetaZOLAMIDE 250 MG TAB PO SCH ×2 (09:31→21:52)
--- NOTE | 2022-05-03 12:03 | P.PN ---
Subjective Progress Note Date: 05/03/22 51-year-old male seen in the emergency department with complaints of shortness of breath. His primary care provider is Dr. Milton Arias. The patient was recently in the hospital between April 12, and April 16. He was also over at [facility] for a week or 10 days. The patient presents with progressive and increasing shortness of breath. In addition, the patient complains of cough, and minimal phlegm production. No fever. No chills. The phlegm that he does produce has a estrella color to it. He denied any chest pain or chest discomfort. The patient recently quit smoking. I believe he was seen by my partner on his previous admission here, in late March. He has a history of COPD, atrial fibrillation, and hypertension. White count 9.6, hemoglobin 13.3, hematocrit 44.5, and platelet count 226,000. Sodium 132, potassium 2.8, chlorides 84, CO2 42, BUN 51, and creatinine 1.58. Chest x-ray on admission in my opinion was consistent with cardiomegaly, and CHF. On 04/30/2022, the patient is slightly improved. He is still struggling with his breathing is still on oxygen at 3 L nasal cannula. He also has a BiPAP machine at the bedside at a pressure of 12/5 with an FiO2 of 40%. He is on DuoNeb nebulized treatments [id number], Pulmicort Respules, Perforomist otherwise treatments and IV Solu-Medrol 60 mg every 6 hours. He remains on a combination of diuretics. He is currently on Lasix 20 mg IV every 12 hours is also on Aldactone. He is also on Diamox for her chronic metabolic alkalosis. He remains on long-term anticoagulation withEliquis and he is taking it for chronic atrial fibrillation. The patient is seen today 05/01/2022 in follow-up on the elective care unit. He is currently sitting up at the bedside. Awake and alert in no acute distress. He denies any worsening shortness of breath, cough or congestion. No chest pain or palpitations. He is maintaining O2 saturations in the mid 90s on 3 L/m per nasal cannula. 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 Sodium 136. Potassium 2.7. Bicarb 35. BUN 39. Creatinine 1.13. Glucose 130. He remains on DuoNeb inhalations, Pulmicort and Perforomist inhalations IV site Medrol. Remains on oral diuretics. Continued on Diamox. Anticoagulated with Eliquis. NicoDerm patch in place. On 05/02/2022, the patient is essentially stable. The patient is having issues with A. fib fibrillation with rapid ventricular response. 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 The patient is on metoprolol 75 mg by mouth twice a day an anticoagulation with Eliquis. I added Zithromax regarding Moraxella in his sputum. He is doing well with diuresis. He is doing well regarding his COPD. He has advanced COPD. He remains on bronchodilators. He is on a prednisone burst taper for now. No new complaints. No chest pain. The electrolytes are all stable and the creatinine is at 1.33 with a BUN of 44 and a sodium level of 135 and a potassium level needs to be replaced at 3.1. 05/03/2022, the patient is is having issues with into fibrillation. The patient continues to be tachycardic with an underlying A. fib. The patient remains on metoprolol 75 mg by mouth twice a day. Nevertheless, the heart rate ranging to 140 and 160. He has had a failed cardioversion in the past. Awaiting further recommendations from cardiology regarding rate control. Meanwhile, the patient is on anticoagulants. Patient remains on DuoNeb about treatments [id number]. The patient remains on prednisone burst taper. No nausea or vomiting. No chest pain. He shortness of breath and is a chronic dyspnea and acute exacerbation of shortness of breath is improved. He is currently on 2 L of oxygen by nasal cannula. Is able to maintain a pulse ox of 90% also on room air oxygen. He is morbidly obese with a body mass index of 35.6. Objective - Vital Signs Vital signs: Vital Signs Temp 97.4 F L 05/03/22 11:46 Pulse 137 H 05/03/22 11:46 Resp 18 05/03/22 11:46 BP 94/56 05/03/22 11:46 Pulse Ox 97 05/03/22 11:46 FiO2 40 05/03/22 00:40 Intake & Output 05/02/22 05/03/22 05/03/22 18:59 06:59 18:59 Intake Total 1320 240 Output Total 550 1575 Balance 770 -1575 240 Weight 109.5 kg Intake: Oral 1320 240 Output: Urine 550 1575 Other: Voiding Method Urinal Urinal Urinal - Exam GENERAL EXAM: Alert, pleasant 51-year-old male, on 3 L nasal cannula, comfortable in no apparent distress. HEAD: Normocephalic. EYES: Normal reaction of pupils, equal size. NOSE: Clear with pink turbinates. THROAT: No erythema or exudates. NECK: No masses, no JVD. CHEST: No chest wall deformity. LUNGS: Equal air entry with crackles in the bases, diminished. CVS: Irregular S1 and S2 normal with no audible murmur, regular rhythm. The patient is tachycardic with underlying atrial fibrillation ABDOMEN: No hepatosplenomegaly, normal bowel sounds, no guarding or rigidity. SPINE: No scoliosis or deformity SKIN: No rashes CENTRAL NERVOUS SYSTEM: No focal deficits, tone is normal in all 4 extremities. EXTREMITIES: There is trace peripheral edema. No clubbing, no cyanosis. Peripheral pulses are intact. - Labs CBC & Chem 7: 04/28/22 07:23 05/03/22 06:48 Labs: Abnormal Lab Results - Last 24 Hours (Table) 05/03/22 Range/Units 06:48 Sodium 132 L (137-145) mmol/L Chloride 95 L (98-107) mmol/L BUN 46 H (9-20) mg/dL Calcium 8.3 L (8.4-10.2) mg/dL Assessment and Plan Plan: Acute hypoxemic respiratory failure, with progressive shortness of breath, secondary to both COPD exacerbation, and CHF.dominantly secondary to COPD exacerbation. The patient is currently on a combination of bronchodilators and steroids. History of atrial fibrillation.the patient's rate is controlled and the patient is on long-term anticoagulation with Eliquis. The patient's current heart is still tachycardic and cardiology was informed. Patient remains on metoprolol anticoagulation with Eliquis. The patient has poor control and his heart rate and the patient remains in rapid ventricular response despite being a higher dose of metoprolol 75 mg by mouth twice a day. History of hypertension. History of heavy tobacco use. History of acute kidney injury, improved and the patient is on a combination of diuretics including Lasix and Aldactone History of alcohol abuse. Plan: We'll keep the patient hospital for more effective heart rate is controlled with underlying atrial fibrillation We'll consult cardiology again Consider amiodarone Failed cardioversion in the past Overall respiratory status is improving, the patient remains on oxygen at 3 L/m nasal cannula Continue same treatment for now including a combination of bronchodilators and steroids, the patient was started on a prednisone burst taper continue diuretics for now and the patient is currently on Lasix 40 mg by mouth twice a day continue BIPAP overnight And monitor renal function
--- NOTE | 2022-05-03 14:00 | P.PN ---
Subjective Progress Note Date: 05/03/22 PROGRESS NOTE The patient is a 51-year-old male with a history of chronic tobacco and alcohol intake who presented with symptoms of progressive dyspnea and CHF. He was recently in the hospital was atrial flutter and underwent cardioversion, was found to have an ejection fraction of 40-45%. He continues to be dyspneic, slightly better. He is in atrial fibrillation with controlled ventricular response. He denies any dizziness or palpitations. He has not been smoking since his admission last time. He continues to have a cough, productive. May 02: The patient is feeling better today, anxious to go home. He denies any chest discomfort, dizziness or palpitations. He denies any nausea or vomiting. He is ambulating without difficulties. He continues to be in atrial fibrillation with episodes of fast ventricular response. May 03: The patient is feeling better overall, he continues to be in atrial fibrillation with rapid ventricle response. He denies any chest discomfort, dizziness or palpitations. He has some cough but no wheezing. He denies any nausea or vomiting. Medications: Lasix 40 mg by mouth twice a day, ,Eliquis 5 mg twice a day, DuoNeb, nicotine patch, Diamox 250 mg twice a day, Farxiga 10 mg daily, lisinopril 2.5 milligrams twice a day, metoprolol succinate 75 mg twice a day, Aldactone 25 mg daily. PHYSICAL EXAMINATION: Blood pressure 94/60 heart rate 140 LUNGS: Clear with no wheezes HEART: Irregular rate and rhythm, S1, S2. No S3. No systolic murmur ABDOMEN: Soft, nontender, no organomegaly EXTREMETIES: Trace edema LAB: Potassium 3.5, BUN 46, creatinine 1.24 IMPRESSION: 1. Worsening dyspnea with a combination of exacerbation of COPD and CHF with mildly to moderately impaired systolic function 2. Atrial fibrillation, anticoagulated with rapid ventricle response 3. Prior history of chronic tobacco use 4. Prior history of alcohol intake PLAN: 1. Start oral amiodarone 2. Continue beta priscilla 3. Follow renal functions 4. If rate is controlled hopefully discharged home soon. Objective - Vital Signs Vital signs: Vital Signs Temp 97.4 F L 05/03/22 11:46 Pulse 137 H 05/03/22 11:46 Resp 18 05/03/22 11:46 BP 94/56 05/03/22 11:46 Pulse Ox 97 05/03/22 11:46 FiO2 40 05/03/22 00:40 Intake & Output 05/02/22 05/03/22 05/03/22 18:59 06:59 18:59 Intake Total 1320 240 Output Total 550 1575 Balance 770 -1575 240 Weight 109.5 kg Intake: Oral 1320 240 Output: Urine 550 1575 Other: Voiding Method Urinal Urinal Urinal - Labs CBC & Chem 7: 04/28/22 07:23 05/03/22 06:48 Labs: Abnormal Lab Results - Last 24 Hours (Table) 05/03/22 Range/Units 06:48 Sodium 132 L (137-145) mmol/L Chloride 95 L (98-107) mmol/L BUN 46 H (9-20) mg/dL Calcium 8.3 L (8.4-10.2) mg/dL
[2022-05-03] MEDS: LORazepam 0.5 MG TAB PO PRN ×2 (14:18→21:52)
--- NOTE | 2022-05-03 14:48 | P.PN ---
Subjective Progress Note Date: 05/03/22 Acute hypoxemic respiratory failure, with progressive shortness of breath, secondary to both COPD exacerbation, and CHF Acute exacerbation CHF Acute exacerbation COPD 51-year-old male, history of hypertension, COPD, atrial fibrillation, presenting to the emergency department with concerns with difficulty in breathing. Symptoms have progressively the past couple of days. Patient was in the hospital a couple weeks ago with congestive heart failure and atrial fibrillation. Patient does have history of COPD however that is not similar to this. Patient does have cough with occasional estrella sputum. No fevers. Patient does have some edema still. Patient states he is on furosemide. Workup including EKG completed in ED reveals atrial fibrillation with RVR with nonspecific ST and T wave changes Chest x-ray reveals cardiomegaly and interstitial edema Blood work reveals sodium 136, potassium 3.3, BUN/creatinine of 36/0.79, WBC 11.0, hemoglobin of 13.6, and platelet count of 110 04/29/2022 Patient is seen and evaluated in room at bedside Currently, he is on 3 L. He is getting saline at KVO. He's on a Cardizem drip at 5 mg an hour for his atrial fibrillation. The patient has been seen by cardiology. Additional recommendations and suggestions are forthcoming. He is currently on budesonide, formoterol, albuterol sulfate, and ipratropium bromide, and Solu-Medrol. Patient has been evaluated by cardiology-- He continues to be in atrial fibrillation with overall controlled heart rate on the current dose of atenolol. Hemodynamically he is hypotensive. Currently he is on Lasix IV. He still requires liters of oxygen to maintain saturation above 90s. Otherwise he does have diminished breathing sounds bilaterally and very mild bilateral lower extremities edema. He is also on oral anticoagulation. At this point I'm going to decrease the dose of Lasix IV in the light of low blood pressure and worsening kidney function. Continue beta priscilla and continue oral anticoagulation. Continue monitor the kidney function and electrolytes and follow-up with the patient. 04/30/2022 Patient is seen and evaluated and follow-up this morning with pulmonary and cardiology following. Patient is currently sitting up at the site of the bed continues to be dyspneic with minimal exertion. Patient is continued on 3 L via nasal cannula and reports he recently started requiring oxygen. Patient was on Cardizem drip for atrial fibrillation and being transitioned to oral beta priscilla and is also anticoagulated with eliquis. Patient having all over arthritic pain will add Tylenol and also something for his cough. Patient is afebrile denies chest pain or palpitations. Patient continues to report shortness of breath although feels minimally improved from previous. No reports of nausea or vomiting and patient is tolerating diet. 05/01/2022 Patient is seen and evaluated in follow-up today being followed by pulmonary along with cardiology. Medications being adjusted and patient is being started on Farxiga per cardiology. Patient is also continued on DuoNeb treatments along with oral prednisone. Sputum culture showing moraxilla catarra with pulmonary following and patient is being started on Zithromax. Recommend continue with other medications along with Diamox and Lasix is also being transitioned to oral. Potassium critically low at 2.7 and recommend follow-up labs and potassium replacement per protocol. Patient is afebrile denies chest pain or worsening shortness of breath. Patient denies nausea or vomiting and tolerating diet. IV steroids being transitioned oral prednisone starting at 40 mg daily and will likely require a prednisone taper on discharge. Patient is currently maintained on 3 L via nasal cannula. Planning for possible discharge in the next 24-48 hours. Current increase activity as tolerated. 05/02/2022 Patient is seen in follow-up this morning currently walking around in the room less dyspneic. Patient is continued on 2-3 L via nasal cannula. Patient being followed by cardiology along with pulmonary. Patient to continue with DuoNeb treatments and oral steroids but stable from pulmonary standpoint. Patient continues to have elevated heart rate with A. fib uncontrolled and medications being adjusted. Potassium also being replaced continues to be low at 3.0 and will replace and also increase daily supplements. Recommend repeat labs. Patient is afebrile with no reports of worsening shortness of breath or chest pain noted. Patient tolerating diet with no reports of nausea or vomiting noted . 05/03/2022 Patient is seen and evaluated in follow-up today anxious and wanting to go home. Patient continues to be in atrial fibrillation with uncontrolled rapid rate in the 150s to 170s. Cardiology is following and adding oral amiodarone and other medications have been adjusted. Patient is currently on metoprolol 75 mg twice daily along with Aldactone, oral Lasix, beta priscilla and oral anticoagulation. Patient currently continues to be on 2-3 L via nasal cannula. Sodium 132 today and repeat potassium is 3.5 after replacement and have increased daily supplementation. Kidney functions with a BUN of 46 and current creatinine 1.24. Patient is afebrile denies chest pain or palpitations. Pulmonary following and stable for outpatient follow-up. Review of systems: Constitutional: No reports of fatigue, fever, or chills Cardiovascular: No reports of chest pain or palpitations Respiratory: No reports of worsening shortness of breath, reports dyspnea with minimal exertion is improving GI: No reports of nausea, vomiting, or diarrhea : No reports of dysuria or retention Neurovascular: No reports of weakness or numbness All medications have been reviewed Physical exam: Gen: This is a 51-year-old male awake, alert and oriented 3, well-developed, well-nourished, obese. HEENT: Head is atraumatic, normocephalic. Pupils equal, round. Sclerae is anicteric. NECK: Supple. No JVD. No lymphadenopathy. No thyromegaly. LUNGS: Diminished breath sounds bilaterally with some scattered rhonchi noted. No intercostal retractions. HEART: S1, S2 are muffled, irregularly irregular ABDOMEN: Soft. Obese. Bowel sounds are present. No masses. No tenderness. EXTREMITIES: No pedal edema. No calf tenderness. NEUROLOGICAL: Patient is awake, alert and oriented x3. Cranial nerves 2 through 12 are grossly intact. Assessment: -Acute exacerbation CHF, acute on chronic with mildly to moderately impaired systolic function -Chronic obstructive pulmonary disease, acute exacerbation -Acute hypoxic respiratory failure secondary to a component of CHF and COPD exacerbation -Atrial fibrillation with RVR -Acute kidney injury most likely secondary to diuretics and Aldactone use, improving -Hypertension -Peripheral neuropathy -DVT prophylaxis -GI prophylaxis Plan: Recommend patient to continue with current medications with pulmonary and cardiology following. Farxiga recently added and patient has been transitioned oral Lasix along with Aldactone. Patient continues on 3 L and less dyspneic. Patient also anticoagulated and will continue with telemetry monitoring. Patient continues to take telemetry often refusing to wear it. Patient continues to be in atrial fibrillation with RVR and cardiology following and have adjusted beta priscilla and now adding oral amiodarone. Potassium continues to be low although at 3.5 today and will replace per protocol and have also increased daily supplementation. Pulmonary following and patient is maintained on DuoNeb treatments along with oral steroids and Zithromax. Patient to follow-up with pulmonary outpatient Encouraged increased activity as tolerated Continue done 3 L via nasal cannula and recommend continue supplemental oxygen as needed. Recommend telemetry monitoring and patient received an additional dose of Toprol today with cardiology recommending 24 hours of close monitoring with possible discharge in the a.m. Recommend follow-up labs in the a.m. and will continue to monitor closely. The impression and plan of care has been dictated by Cathleen Spear, Nurse Practitioner as directed. Dr. Nadine MD I have performed a history and examination and MDM of this patient, discussed the same with the dictator, and agree with the dictator's assessment and plan as written ,documented as a scribe. Based on total visit time, I have performed more than 50% of the visit. Objective - Vital Signs Vital signs: Vital Signs Temp 97.4 F L 05/03/22 11:46 Pulse 137 H 05/03/22 11:46 Resp 18 05/03/22 11:46 BP 94/56 05/03/22 11:46 Pulse Ox 97 05/03/22 11:46 FiO2 40 05/03/22 00:40 Intake & Output 05/02/22 05/03/22 05/03/22 18:59 06:59 18:59 Intake Total 1320 240 Output Total 550 1575 Balance 770 -1575 240 Weight 109.5 kg Intake: Oral 1320 240 Output: Urine 550 1575 Other: Voiding Method Urinal Urinal Urinal - Labs CBC & Chem 7: 04/28/22 07:23 05/03/22 06:48 Labs: Abnormal Lab Results - Last 24 Hours (Table) 05/03/22 Range/Units 06:48 Sodium 132 L (137-145) mmol/L Chloride 95 L (98-107) mmol/L BUN 46 H (9-20) mg/dL Calcium 8.3 L (8.4-10.2) mg/dL
[2022-05-03] MEDS: AMIODARONE 200 MG TAB PO SCH (21:52)
[2022-05-03] MEDS: MELATONIN 5 MG TABLET PO SCH (21:52)
[2022-05-04] MEDS: IPRATROPIUM-ALBUTEROL 3 ML NEB INHALATION SCH ×4 (07:17→20:41)
[2022-05-04] MEDS: FORMOTEROL FUMARATE 20 MCG/2 ML NEBU INHALATION SCH ×2 (07:17→20:41)
[2022-05-04] MEDS: BUDESONIDE 1 MG/2 ML NEBU INHALATION SCH ×2 (07:17→20:41)
--- NOTE | 2022-05-04 07:17 | P.PN ---
Subjective Progress Note Date: 05/04/22 PROGRESS NOTE The patient is a 51-year-old male with a history of chronic tobacco and alcohol intake who presented with symptoms of progressive dyspnea and CHF. He was recently in the hospital was atrial flutter and underwent cardioversion, was found to have an ejection fraction of 40-45%. He continues to be dyspneic, slightly better. He is in atrial fibrillation with controlled ventricular response. He denies any dizziness or palpitations. He has not been smoking since his admission last time. He continues to have a cough, productive. May 02: The patient is feeling better today, anxious to go home. He denies any chest discomfort, dizziness or palpitations. He denies any nausea or vomiting. He is ambulating without difficulties. He continues to be in atrial fibrillation with episodes of fast ventricular response. May 03: The patient is feeling better overall, he continues to be in atrial fibrillation with rapid ventricle response. He denies any chest discomfort, dizziness or palpitations. He has some cough but no wheezing. He denies any nausea or vomiting. May 04: The patient is feeling better overall but continues to be dyspneic. He continues to be in atrial fibrillation with episodes of rapid ventricle response. He denies any chest discomfort, dizziness or palpitations. He denies any nausea. He was started on amiodarone yesterday. He has not had significant cough or wheezing. He denies any dizziness. Medications: Lasix 40 mg by mouth twice a day, ,Eliquis 5 mg twice a day, DuoNeb, nicotine patch, Diamox 250 mg twice a day, Farxiga 10 mg daily, lisinopril 2.5 milligrams twice a day, metoprolol succinate 75 mg twice a day, Aldactone 25 mg daily. Amiodarone 400 mg twice a day PHYSICAL EXAMINATION: Blood pressure 104/60 heart rate 120 LUNGS: Clear with no wheezes HEART: Irregular rate and rhythm, S1, S2. No S3. No systolic murmur ABDOMEN: Soft, nontender, no organomegaly EXTREMETIES: No edema LAB: Pending IMPRESSION: 1. Worsening dyspnea with a combination of exacerbation of COPD and CHF with mildly to moderately impaired systolic function 2. Atrial fibrillation, anticoagulated with rapid ventricle response, improving 3. Prior history of chronic tobacco use 4. Prior history of alcohol intake PLAN: 1. Proceed with cardioversion because of the persistent rapid ventricle response. The procedure as well as the risks were discussed with him 2. Continue other medications 3. If maintaining sinus mechanism hopefully discharged home soon. Objective - Vital Signs Vital signs: Vital Signs Temp 98.0 F 05/04/22 04:00 Pulse 113 H 05/04/22 04:00 Resp 20 05/04/22 04:00 BP 104/28 05/04/22 04:00 Pulse Ox 96 05/04/22 04:00 FiO2 40 05/04/22 03:30 Intake & Output 05/03/22 05/04/22 05/04/22 18:59 06:59 18:59 Intake Total 480 Output Total 1725 650 Balance 480 -1725 -650 Intake: Oral 480 Output: Urine 1725 650 Other: Voiding Method Urinal Urinal # Voids 2 2 - Labs CBC & Chem 7: 04/28/22 07:23 05/03/22 06:48 Labs: Abnormal Lab Results - Last 24 Hours (Table) 05/03/22 Range/Units 06:48 Sodium 132 L (137-145) mmol/L Chloride 95 L (98-107) mmol/L BUN 46 H (9-20) mg/dL Calcium 8.3 L (8.4-10.2) mg/dL
[2022-05-04 07:54] LABS: Calcium 8.6 mg/dL (8.4-10.2); Potassium 4.1 mmol/L (3.5-5.1)
[2022-05-04] MEDS: acetaZOLAMIDE 250 MG TAB PO SCH (08:22)
[2022-05-04] MEDS: NICOTINE 21MG/24HR PATCH TRANSDERM SCH (08:22)
[2022-05-04] MEDS: APIXABAN 5 MG TAB PO SCH ×2 (08:23→21:02)
[2022-05-04] MEDS: predniSONE 20 MG TAB PO SCH (08:23)
[2022-05-04] MEDS: FUROSEMIDE 40 MG TAB PO SCH ×2 (08:23→16:52)
[2022-05-04] MEDS: FAMOTIDINE 20 MG TAB PO SCH ×2 (08:23→21:03)
[2022-05-04] MEDS: POTASSIUM CHLORIDE ER 20 MEQ TAB.ER PO SCH (08:23)
[2022-05-04] MEDS: PREGABALIN 100 MG CAP PO SCH ×2 (08:23→21:03)
[2022-05-04] MEDS: AZITHROMYCIN 500 MG TAB PO SCH (08:24)
[2022-05-04] MEDS: SPIRONOLACTONE 25 MG TAB PO SCH (08:24)
[2022-05-04] MEDS: AMIODARONE 200 MG TAB PO SCH ×2 (08:28→21:02)
[2022-05-04] MEDS: METOPROLOL SUCCINATE (ER) 25 MG TAB.ER.24H PO SCH ×2 (08:28→21:03)
[2022-05-04] MEDS ORDERED: SODIUM CHLORIDE 0.9% 1,000 ML IV ONE (09:30)
[2022-05-04] MEDS ORDERED: PROPOFOL 10 MG/ML 20 ML VIAL IV ONE ×2 (09:56)
--- NOTE | 2022-05-04 10:17 | P.PCN ---
Date of Procedure: 05/04/22 Description of Procedure: Cardioversion Indication: atrial fibrillation Procedure: After explaining the procedure to the patient as well as the risks and complications, his blood pressure, heart rate and O2 saturations were monitored. He received sedation per anesthesia department. A synchronized biphasic cardioversion using 150 J was performed with tenriism of sinus mechanism, there was no immediate complications.
[2022-05-04] MEDS: DAPAGLIFLOZIN PROPANEDIOL 10 MG TABLET PO SCH (11:08)
--- NOTE | 2022-05-04 13:43 | P.PN ---
Subjective Progress Note Date: 05/04/22 51-year-old male seen in the emergency department with complaints of shortness of breath. His primary care provider is Dr. Milton Arias. The patient was recently in the hospital between April 12, and April 16. He was also over at [facility] for a week or 10 days. The patient presents with progressive and increasing shortness of breath. In addition, the patient complains of cough, and minimal phlegm production. No fever. No chills. The phlegm that he does produce has a estrella color to it. He denied any chest pain or chest discomfort. The patient recently quit smoking. I believe he was seen by my partner on his previous admission here, in late March. He has a history of COPD, atrial fibrillation, and hypertension. White count 9.6, hemoglobin 13.3, hematocrit 44.5, and platelet count 226,000. Sodium 132, potassium 2.8, chlorides 84, CO2 42, BUN 51, and creatinine 1.58. Chest x-ray on admission in my opinion was consistent with cardiomegaly, and CHF. On 04/30/2022, the patient is slightly improved. He is still struggling with his breathing is still on oxygen at 3 L nasal cannula. He also has a BiPAP machine at the bedside at a pressure of 12/5 with an FiO2 of 40%. He is on DuoNeb nebulized treatments [id number], Pulmicort Respules, Perforomist otherwise treatments and IV Solu-Medrol 60 mg every 6 hours. He remains on a combination of diuretics. He is currently on Lasix 20 mg IV every 12 hours is also on Aldactone. He is also on Diamox for her chronic metabolic alkalosis. He remains on long-term anticoagulation withEliquis and he is taking it for chronic atrial fibrillation. The patient is seen today 05/01/2022 in follow-up on the elective care unit. He is currently sitting up at the bedside. Awake and alert in no acute distress. He denies any worsening shortness of breath, cough or congestion. No chest pain or palpitations. He is maintaining O2 saturations in the mid 90s on 3 L/m per nasal cannula. 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 Sodium 136. Potassium 2.7. Bicarb 35. BUN 39. Creatinine 1.13. Glucose 130. He remains on DuoNeb inhalations, Pulmicort and Perforomist inhalations IV site Medrol. Remains on oral diuretics. Continued on Diamox. Anticoagulated with Eliquis. NicoDerm patch in place. On 05/02/2022, the patient is essentially stable. The patient is having issues with A. fib fibrillation with rapid ventricular response. Genetic Supervisor on the case. The patient is on metoprolol 75 mg by mouth twice a day an anticoagulation with Eliquis. I added Zithromax regarding Moraxella in his sputum. He is doing well with diuresis. He is doing well regarding his COPD. He has advanced COPD. He remains on bronchodilators. He is on a prednisone burst taper for now. No new complaints. No chest pain. The electrolytes are all stable and the creatinine is at 1.33 with a BUN of 44 and a sodium level of 135 and a potassium level needs to be replaced at 3.1. 05/03/2022, the patient is is having issues with into fibrillation. The patient continues to be tachycardic with an underlying A. fib. The patient remains on metoprolol 75 mg by mouth twice a day. Nevertheless, the heart rate ranging to 140 and 160. He has had a failed cardioversion in the past. Awaiting further recommendations from cardiology regarding rate control. Meanwhile, the patient is on anticoagulants. Patient remains on DuoNeb about treatments [id number]. The patient remains on prednisone burst taper. No nausea or vomiting. No chest pain. He shortness of breath and is a chronic dyspnea and acute exacerbation of shortness of breath is improved. He is currently on 2 L of oxygen by nasal cannula. Is able to maintain a pulse ox of 90% also on room air oxygen. He is morbidly obese with a body mass index of 35.6. 05/04/2022, the patient remains in tachycardic atrial fibrillation. The patient was started on oral amiodarone 400 mg 2 twice a day in addition to metoprolol 75 mg by mouth twice a day. The patient is going to undergo a cardioversion process today. The patient anticoagulation with Eliquis. We are hopeful that this cardioversion is going to the store sinus rhythm. Otherwise, the patient is receiving DuoNeb about treatments [id number]. The patient is on prednisone burst taper regarding his COPD exacerbation was seems to be further optimized. No other new complaints otherwise for now. The electrolytes are all within normal limits. Potassium levels at 4.1. Creatinine is at 1.3 with a BUN of 51. The patient continues to receive Lasix 40 mg by mouth twice daily the patient is also on Aldactone 25 mg by mouth daily. The patient is also on Diamo x and a serum bicarb is up from 40 down to 28. Objective - Vital Signs Vital signs: Vital Signs Temp 97.2 F L 05/04/22 09:30 Pulse 88 05/04/22 11:42 Resp 16 05/04/22 11:09 BP 94/58 05/04/22 11:09 Pulse Ox 96 05/04/22 11:09 FiO2 40 05/04/22 03:30 Intake & Output 05/03/22 05/04/22 05/04/22 18:59 06:59 18:59 Intake Total 480 500 Output Total 1725 650 Balance 480 -1725 -150 Intake: IV 500 Oral 480 Output: Urine 1725 650 Other: Voiding Method Urinal Urinal Urinal # Voids 2 2 - Exam GENERAL EXAM: Alert, pleasant 51-year-old male, on 3 L nasal cannula, comfortable in no apparent distress. HEAD: Normocephalic. EYES: Normal reaction of pupils, equal size. NOSE: Clear with pink turbinates. THROAT: No erythema or exudates. NECK: No masses, no JVD. CHEST: No chest wall deformity. LUNGS: Equal air entry with crackles in the bases, diminished. CVS: Irregular S1 and S2 normal with no audible murmur, regular rhythm. The patient is tachycardic with underlying atrial fibrillation ABDOMEN: No hepatosplenomegaly, normal bowel sounds, no guarding or rigidity. SPINE: No scoliosis or deformity SKIN: No rashes CENTRAL NERVOUS SYSTEM: No focal deficits, tone is normal in all 4 extremities. EXTREMITIES: There is trace peripheral edema. No clubbing, no cyanosis. Peripheral pulses are intact. - Labs CBC & Chem 7: 04/28/22 07:23 05/04/22 06:57 Labs: Abnormal Lab Results - Last 24 Hours (Table) 05/04/22 Range/Units 06:57 Sodium 131 L (137-145) mmol/L Chloride 96 L (98-107) mmol/L BUN 51 H (9-20) mg/dL Creatinine 1.33 H (0.66-1.25) mg/dL Assessment and Plan Plan: Acute hypoxemic respiratory failure, with progressive shortness of breath, secondary to both COPD exacerbation, and CHF.dominantly secondary to COPD exacerbation. The patient is currently on a combination of bronchodilators and steroids. History of atrial fibrillation.the patient's rate is controlled and the patient is on long-term anticoagulation with Eliquis. The patient's current heart is still tachycardic and cardiology was informed. Patient remains on metoprolol anticoagulation with Eliquis. The patient was also started on amiodarone and the patient is going to undergo cardioversion today History of hypertension. History of heavy tobacco use. History of acute kidney injury, improved and the patient is on a combination of diuretics including Lasix and Aldactone History of alcohol abuse. Metabolic alkalosis, improved with Diamox Plan: Proceed with cardioversion today Continue metoprolol 75 mg by mouth twice a day and amiodarone 400 mg by mouth twice a day Continue anticoagulation with Eliquis O2 at 3 L nasal cannula Continue Lasix 40 mg by mouth twice a day and Aldactone Discontinue Diamox BiPAP overnight Creatinine is at 1.3 and this is to be monitored We'll follow
--- NOTE | 2022-05-04 19:18 | P.PN ---
Subjective Progress Note Date: 05/04/22 Acute hypoxemic respiratory failure, with progressive shortness of breath, secondary to both COPD exacerbation, and CHF Acute exacerbation CHF Acute exacerbation COPD 51-year-old male, history of hypertension, COPD, atrial fibrillation, presenting to the emergency department with concerns with difficulty in breathing. Symptoms have progressively the past couple of days. Patient was in the hospital a couple weeks ago with congestive heart failure and atrial fibrillation. Patient does have history of COPD however that is not similar to this. Patient does have cough with occasional estrella sputum. No fevers. Patient does have some edema still. Patient states he is on furosemide. Workup including EKG completed in ED reveals atrial fibrillation with RVR with nonspecific ST and T wave changes Chest x-ray reveals cardiomegaly and interstitial edema Blood work reveals sodium 136, potassium 3.3, BUN/creatinine of 36/0.79, WBC 11.0, hemoglobin of 13.6, and platelet count of 110 04/29/2022 Patient is seen and evaluated in room at bedside Currently, he is on 3 L. He is getting saline at KVO. He's on a Cardizem drip at 5 mg an hour for his atrial fibrillation. The patient has been seen by cardiology. Additional recommendations and suggestions are forthcoming. He is currently on budesonide, formoterol, albuterol sulfate, and ipratropium bromide, and Solu-Medrol. Patient has been evaluated by cardiology-- He continues to be in atrial fibrillation with overall controlled heart rate on the current dose of atenolol. Hemodynamically he is hypotensive. Currently he is on Lasix IV. He still requires liters of oxygen to maintain saturation above 90s. Otherwise he does have diminished breathing sounds bilaterally and very mild bilateral lower extremities edema. He is also on oral anticoagulation. At this point I'm going to decrease the dose of Lasix IV in the light of low blood pressure and worsening kidney function. Continue beta priscilla and continue oral anticoagulation. Continue monitor the kidney function and electrolytes and follow-up with the patient. 04/30/2022 Patient is seen and evaluated and follow-up this morning with pulmonary and cardiology following. Patient is currently sitting up at the site of the bed continues to be dyspneic with minimal exertion. Patient is continued on 3 L via nasal cannula and reports he recently started requiring oxygen. Patient was on Cardizem drip for atrial fibrillation and being transitioned to oral beta priscilla and is also anticoagulated with eliquis. Patient having all over arthritic pain will add Tylenol and also something for his cough. Patient is afebrile denies chest pain or palpitations. Patient continues to report shortness of breath although feels minimally improved from previous. No reports of nausea or vomiting and patient is tolerating diet. 05/01/2022 Patient is seen and evaluated in follow-up today being followed by pulmonary along with cardiology. Medications being adjusted and patient is being started on Farxiga per cardiology. Patient is also continued on DuoNeb treatments along with oral prednisone. Sputum culture showing moraxilla catarra with pulmonary following and patient is being started on Zithromax. Recommend continue with other medications along with Diamox and Lasix is also being transitioned to oral. Potassium critically low at 2.7 and recommend follow-up labs and potassium replacement per protocol. Patient is afebrile denies chest pain or worsening shortness of breath. Patient denies nausea or vomiting and tolerating diet. IV steroids being transitioned oral prednisone starting at 40 mg daily and will likely require a prednisone taper on discharge. Patient is currently maintained on 3 L via nasal cannula. Planning for possible discharge in the next 24-48 hours. Current increase activity as tolerated. 05/02/2022 Patient is seen in follow-up this morning currently walking around in the room less dyspneic. Patient is continued on 2-3 L via nasal cannula. Patient being followed by cardiology along with pulmonary. Patient to continue with DuoNeb treatments and oral steroids but stable from pulmonary standpoint. Patient continues to have elevated heart rate with A. fib uncontrolled and medications being adjusted. Potassium also being replaced continues to be low at 3.0 and will replace and also increase daily supplements. Recommend repeat labs. Patient is afebrile with no reports of worsening shortness of breath or chest pain noted. Patient tolerating diet with no reports of nausea or vomiting noted . 05/03/2022 Patient is seen and evaluated in follow-up today anxious and wanting to go home. Patient continues to be in atrial fibrillation with uncontrolled rapid rate in the 150s to 170s. Cardiology is following and adding oral amiodarone and other medications have been adjusted. Patient is currently on metoprolol 75 mg twice daily along with Aldactone, oral Lasix, beta priscilla and oral anticoagulation. Patient currently continues to be on 2-3 L via nasal cannula. Sodium 132 today and repeat potassium is 3.5 after replacement and have increased daily supplementation. Kidney functions with a BUN of 46 and current creatinine 1.24. Patient is afebrile denies chest pain or palpitations. Pulmonary following and stable for outpatient follow-up. 05/04/2022 Patient was seen today by pulmonary and cardiology and pulmonary following. Patient is continued on Zithromax for positive sputum cultures also has been transitioned to oral steroids. Patient was recently started on oral amiodarone yesterday although continued to be in A. fib RVR. Metoprolol has been increased as well and blood pressures are soft. Cardiology recommending cardioversion which will be done today. Patient is afebrile denies chest pain or palpitations. Patient's potassium is improved today and will continue with current regimen and close monitoring. Kidney function slightly elevated although stable at this time. Will continue to monitor and continue with oral Lasix and Aldactone. Patient reports he has been up and walking and tolerating room air. Patient having intermittent periods of shortness of breath with exertion although at rest patient reports he is maintaining oxygen saturations above 90%. Patient does have oxygen in the outpatient setting previous admission. Review of systems: Constitutional: No reports of fatigue, fever, or chills Cardiovascular: No reports of chest pain or palpitations Respiratory: No reports of worsening shortness of breath, reports dyspnea with minimal exertion is improving and has been going with room air GI: No reports of nausea, vomiting, or diarrhea : No reports of dysuria or retention Neurovascular: No reports of weakness or numbness All medications have been reviewed Physical exam: Gen: This is a 51-year-old male awake, alert and oriented 3, well-developed, well-nourished, obese. HEENT: Head is atraumatic, normocephalic. Pupils equal, round. Sclerae is anicteric. NECK: Supple. No JVD. No lymphadenopathy. No thyromegaly. LUNGS: Diminished breath sounds bilaterally with some scattered rhonchi noted. No intercostal retractions. HEART: S1, S2 are muffled, irregularly irregular ABDOMEN: Soft. Obese. Bowel sounds are present. No masses. No tenderness. EXTREMITIES: No pedal edema. No calf tenderness. NEUROLOGICAL: Patient is awake, alert and oriented x3. Cranial nerves 2 through 12 are grossly intact. Assessment: -Acute exacerbation CHF, acute on chronic with mildly to moderately impaired systolic function -Chronic obstructive pulmonary disease, acute exacerbation -Acute hypoxic respiratory failure secondary to a component of CHF and COPD exacerbation -Atrial fibrillation with RVR post cardioversion currently rate controlled -Acute kidney injury most likely secondary to diuretics and Aldactone use, improving -Hypertension -Peripheral neuropathy -DVT prophylaxis -GI prophylaxis Plan: Recommend patient to continue with current medications with pulmonary and cardiology following. Cardiology following and has placed the patient on first fecal along with increased metoprolol and oral amiodarone and patient continues to be in A. fib RVR and recommending cardioversion and patient is agreeable. Patient is post cardioversion today currently maintaining heart rate in the 70s and 80s. Cardiology recommending close monitoring overnight on telemetry as patient recently underwent cardioversion and flipped back into atrial fibrillation quickly. If patient's heart rate remained stable patient will be cleared by cardiology for discharge. Pulmonary following patient is on oral prednisone along with DuoNeb's occasional 2-3 L although has been working on weaning off oxygen as tolerated. Patient is also on Zithromax for positive sputum culture with Moraxella caterra Encouraged increased activity as tolerated Recommend telemetry monitoring for 24 hours and if heart rate remained stable, patient will be discharged in 24 hours. Discussed with the patient at length about medication compliance along with lifestyle modification changes. The impression and plan of care has been dictated by Cathleen Spear, Nurse Practitioner as directed. Dr. Nadine MD I have performed a history and examination and MDM of this patient, discussed the same with the dictator, and agree with the dictator's assessment and plan as written ,documented as a scribe. Based on total visit time, I have performed more than 50% of the visit. Objective - Vital Signs Vital signs: Vital Signs Temp 97.2 F L 05/04/22 09:30 Pulse 86 05/04/22 16:54 Resp 16 05/04/22 16:54 BP 108/69 05/04/22 16:54 Pulse Ox 95 05/04/22 16:54 FiO2 40 05/04/22 03:30 Intake & Output 05/03/22 05/04/22 05/04/22 18:59 06:59 18:59 Intake Total 480 690 Output Total 1725 650 Balance 480 -1725 40 Intake: IV 100 Oral 480 590 Output: Urine 1725 650 Other: Voiding Method Urinal Urinal Urinal # Voids 2 2 2 - Labs CBC & Chem 7: 04/28/22 07:23 05/04/22 06:57 Labs: Abnormal Lab Results - Last 24 Hours (Table) 05/04/22 Range/Units 06:57 Sodium 131 L (137-145) mmol/L Chloride 96 L (98-107) mmol/L BUN 51 H (9-20) mg/dL Creatinine 1.33 H (0.66-1.25) mg/dL
[2022-05-04 20:55] VITALS: RESP 18
[2022-05-04] MEDS: SODIUM CHLORIDE 0.9% 1,000 ML IV SCH (21:00)
[2022-05-04] MEDS: MELATONIN 5 MG TABLET PO SCH (21:03)
[2022-05-04] MEDS: LORazepam 0.5 MG TAB PO PRN (21:08)
[2022-05-04] MEDS: guaiFENesin SYRUP 100MG/5ML 200 MG/10 ML CUP PO PRN (21:08)
[2022-05-05] MEDS: SODIUM CHLORIDE 0.9% 1,000 ML IV SCH (03:33)
[2022-05-05] MEDS: IPRATROPIUM-ALBUTEROL 3 ML NEB INHALATION SCH ×2 (07:05→11:06)
[2022-05-05] MEDS: FORMOTEROL FUMARATE 20 MCG/2 ML NEBU INHALATION SCH (07:05)
[2022-05-05] MEDS: BUDESONIDE 1 MG/2 ML NEBU INHALATION SCH (07:05)
[2022-05-05] MEDS: AZITHROMYCIN 500 MG TAB PO SCH (08:45)
[2022-05-05] MEDS: DAPAGLIFLOZIN PROPANEDIOL 10 MG TABLET PO SCH (08:45)
[2022-05-05] MEDS: FUROSEMIDE 40 MG TAB PO SCH (08:45)
[2022-05-05] MEDS: METOPROLOL SUCCINATE (ER) 25 MG TAB.ER.24H PO SCH (08:45)
[2022-05-05] MEDS: NICOTINE 21MG/24HR PATCH TRANSDERM SCH (08:45)
[2022-05-05] MEDS: predniSONE 20 MG TAB PO SCH (08:46)
[2022-05-05] MEDS: APIXABAN 5 MG TAB PO SCH (08:46)
[2022-05-05] MEDS: AMIODARONE 200 MG TAB PO SCH (08:46)
[2022-05-05] MEDS: POTASSIUM CHLORIDE ER 20 MEQ TAB.ER PO SCH (08:46)
[2022-05-05] MEDS: SPIRONOLACTONE 25 MG TAB PO SCH (08:47)
[2022-05-05] MEDS: PREGABALIN 100 MG CAP PO SCH (08:47)
[2022-05-05] MEDS: FAMOTIDINE 20 MG TAB PO SCH (08:47)
[2022-05-05 11:18] LABS: Calcium 8.5 mg/dL (8.4-10.2); Potassium 4.1 mmol/L (3.5-5.1)
[2022-05-05 11:55] VITALS: BP 102/64; PULSE 81; TEMP 98.7
--- NOTE | 2022-05-05 13:55 | P.PN ---
Subjective Progress Note Date: 05/05/22 PROGRESS NOTE The patient is a 51-year-old male with a history of chronic tobacco and alcohol intake who presented with symptoms of progressive dyspnea and CHF. He was recently in the hospital was atrial flutter and underwent cardioversion, was found to have an ejection fraction of 40-45%. He continues to be dyspneic, slightly better. He is in atrial fibrillation with controlled ventricular response. He denies any dizziness or palpitations. He has not been smoking since his admission last time. He continues to have a cough, productive. May 02: The patient is feeling better today, anxious to go home. He denies any chest discomfort, dizziness or palpitations. He denies any nausea or vomiting. He is ambulating without difficulties. He continues to be in atrial fibrillation with episodes of fast ventricular response. May 03: The patient is feeling better overall, he continues to be in atrial fibrillation with rapid ventricle response. He denies any chest discomfort, dizziness or palpitations. He has some cough but no wheezing. He denies any nausea or vomiting. May 04: The patient is feeling better overall but continues to be dyspneic. He continues to be in atrial fibrillation with episodes of rapid ventricle response. He denies any chest discomfort, dizziness or palpitations. He denies any nausea. He was started on amiodarone yesterday. He has not had significant cough or wheezing. He denies any dizziness. May 05: He feels better, his breathing is improved. He continues to be in sinus mechanism. He denies any dizziness or palpitations. He denies any nausea. He is ambulating without difficulties. Medications: Lasix 40 mg by mouth twice a day, ,Eliquis 5 mg twice a day, DuoNeb, nicotine patch, Farxiga 10 mg daily, lisinopril 2.5 milligrams twice a day, metoprolol succinate 75 mg twice a day, Aldactone 25 mg daily. Amiodarone 400 mg twice a day PHYSICAL EXAMINATION: Blood pressure 102/60 heart rate 80 LUNGS: Clear with no wheezes HEART: Regular rate and rhythm, S1, S2. No S3. No systolic murmur ABDOMEN: Soft, nontender, no organomegaly EXTREMETIES: No edema LAB: Potassium 4.1, BUN 42, creatinine 1.21 IMPRESSION: 1. Worsening dyspnea with a combination of exacerbation of COPD and CHF with mildly to moderately impaired systolic function 2. Atrial fibrillation status post cardioversion, back in sinus mechanism 3. Prior history of chronic tobacco use 4. Prior history of alcohol intake PLAN: 1. Decrease amiodarone 2. Increase physical activity 3. Probable DC home today and follow-up as an outpatient. Objective - Vital Signs Vital signs: Vital Signs Temp 98.7 F 05/05/22 11:54 Pulse 81 05/05/22 11:54 Resp 18 05/05/22 11:54 BP 102/64 05/05/22 11:54 Pulse Ox 96 05/05/22 11:54 FiO2 40 05/05/22 00:20 Intake & Output 05/04/22 05/05/22 05/05/22 18:59 06:59 18:59 Intake Total 690 360 Output Total 650 Balance 40 360 Intake: IV 100 Oral 590 360 Output: Urine 650 Other: Voiding Method Urinal Urinal # Voids 2 1 - Labs CBC & Chem 7: 04/28/22 07:23 05/05/22 09:55 Labs: Abnormal Lab Results - Last 24 Hours (Table) 05/05/22 Range/Units 09:55 Sodium 135 L (137-145) mmol/L BUN 42 H (9-20) mg/dL Glucose 134 H (74-99) mg/dL
--- NOTE | 2022-05-05 17:42 | P.PN ---
Subjective Progress Note Date: 05/05/22 51-year-old male seen in the emergency department with complaints of shortness of breath. His primary care provider is Dr. Milton Arias. The patient was recently in the hospital between April 12, and April 16. He was also over at [facility] for a week or 10 days. The patient presents with progressive and increasing shortness of breath. In addition, the patient complains of cough, and minimal phlegm production. No fever. No chills. The phlegm that he does produce has a estrella color to it. He denied any chest pain or chest discomfort. The patient recently quit smoking. I believe he was seen by my partner on his previous admission here, in late March. He has a history of COPD, atrial fibrillation, and hypertension. White count 9.6, hemoglobin 13.3, hematocrit 44.5, and platelet count 226,000. Sodium 132, potassium 2.8, chlorides 84, CO2 42, BUN 51, and creatinine 1.58. Chest x-ray on admission in my opinion was consistent with cardiomegaly, and CHF. On 04/30/2022, the patient is slightly improved. He is still struggling with his breathing is still on oxygen at 3 L nasal cannula. He also has a BiPAP machine at the bedside at a pressure of 12/5 with an FiO2 of 40%. He is on DuoNeb nebulized treatments [id number], Pulmicort Respules, Perforomist otherwise treatments and IV Solu-Medrol 60 mg every 6 hours. He remains on a combination of diuretics. He is currently on Lasix 20 mg IV every 12 hours is also on Aldactone. He is also on Diamox for her chronic metabolic alkalosis. He remains on long-term anticoagulation withEliquis and he is taking it for chronic atrial fibrillation. The patient is seen today 05/01/2022 in follow-up on the elective care unit. He is currently sitting up at the bedside. Awake and alert in no acute distress. He denies any worsening shortness of breath, cough or congestion. No chest pain or palpitations. He is maintaining O2 saturations in the mid 90s on 3 L/m per nasal cannula. 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 Sodium 136. Potassium 2.7. Bicarb 35. BUN 39. Creatinine 1.13. Glucose 130. He remains on DuoNeb inhalations, Pulmicort and Perforomist inhalations IV site Medrol. Remains on oral diuretics. Continued on Diamox. Anticoagulated with Eliquis. NicoDerm patch in place. On 05/02/2022, the patient is essentially stable. The patient is having issues with A. fib fibrillation with rapid ventricular response. 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 The patient is on metoprolol 75 mg by mouth twice a day an anticoagulation with Eliquis. I added Zithromax regarding Moraxella in his sputum. He is doing well with diuresis. He is doing well regarding his COPD. He has advanced COPD. He remains on bronchodilators. He is on a prednisone burst taper for now. No new complaints. No chest pain. The electrolytes are all stable and the creatinine is at 1.33 with a BUN of 44 and a sodium level of 135 and a potassium level needs to be replaced at 3.1. 05/03/2022, the patient is is having issues with into fibrillation. The patient continues to be tachycardic with an underlying A. fib. The patient remains on metoprolol 75 mg by mouth twice a day. Nevertheless, the heart rate ranging to 140 and 160. He has had a failed cardioversion in the past. Awaiting further recommendations from cardiology regarding rate control. Meanwhile, the patient is on anticoagulants. Patient remains on DuoNeb about treatments [id number]. The patient remains on prednisone burst taper. No nausea or vomiting. No chest pain. He shortness of breath and is a chronic dyspnea and acute exacerbation of shortness of breath is improved. He is currently on 2 L of oxygen by nasal cannula. Is able to maintain a pulse ox of 90% also on room air oxygen. He is morbidly obese with a body mass index of 35.6. 05/04/2022, the patient remains in tachycardic atrial fibrillation. The patient was started on oral amiodarone 400 mg 2 twice a day in addition to metoprolol 75 mg by mouth twice a day. The patient is going to undergo a cardioversion process today. The patient anticoagulation with Eliquis. We are hopeful that this cardioversion is going to the store sinus rhythm. Otherwise, the patient is receiving DuoNeb about treatments [id number]. The patient is on prednisone burst taper regarding his COPD exacerbation was seems to be further optimized. No other new complaints otherwise for now. The electrolytes are all within normal limits. Potassium levels at 4.1. Creatinine is at 1.3 with a BUN of 51. The patient continues to receive Lasix 40 mg by mouth twice daily the patient is also on Aldactone 25 mg by mouth daily. The patient is also on Diamo x and a serum bicarb is up from 40 down to 28. On 03/05/2022, the patient is cardioverted and the patient's cardiac version successful and the patient's current rate is controlled and the rhythm is sinus. The patient remains on amiodarone 400 mg by mouth twice a day and mental processing 5 mg by mouth twice a day. He remains on anticoagulation. Rest or status is also stable and the patient is competing a prednisone burst taper. No specific complaints otherwise for now. Discharge home today. Objective - Vital Signs Vital signs: Vital Signs Temp 98.7 F 05/05/22 11:54 Pulse 81 05/05/22 11:54 Resp 18 05/05/22 11:54 BP 102/64 05/05/22 11:54 Pulse Ox 96 05/05/22 11:54 FiO2 40 05/05/22 00:20 Intake & Output 05/04/22 05/05/22 05/05/22 18:59 06:59 18:59 Intake Total 690 360 Output Total 650 Balance 40 360 Intake: IV 100 Oral 590 360 Output: Urine 650 Other: Voiding Method Urinal Urinal # Voids 2 1 - Exam GENERAL EXAM: Alert, pleasant 51-year-old male, on room air oxygen HEAD: Normocephalic. EYES: Normal reaction of pupils, equal size. NOSE: Clear with pink turbinates. THROAT: No erythema or exudates. NECK: No masses, no JVD. CHEST: No chest wall deformity. LUNGS: Equal air entry with crackles in the bases, diminished. CVS: regular S1 and S2 normal with no audible murmur, regular rhythm. The patient is in normal sinus rhythm ABDOMEN: No hepatosplenomegaly, normal bowel sounds, no guarding or rigidity. SPINE: No scoliosis or deformity SKIN: No rashes CENTRAL NERVOUS SYSTEM: No focal deficits, tone is normal in all 4 extremities. EXTREMITIES: There is trace peripheral edema. No clubbing, no cyanosis. Peripheral pulses are intact. - Labs CBC & Chem 7: 04/28/22 07:23 05/05/22 09:55 Labs: Abnormal Lab Results - Last 24 Hours (Table) 05/05/22 Range/Units 09:55 Sodium 135 L (137-145) mmol/L BUN 42 H (9-20) mg/dL Glucose 134 H (74-99) mg/dL Assessment and Plan Plan: Acute hypoxemic respiratory failure, with progressive shortness of breath, secondary to both COPD exacerbation, and CHF.dominantly secondary to COPD exacerbation. The patient is currently on a combination of bronchodilators and steroids. the patient also underwent cardioversion. Oxygen improved and the patient is currently on room air oxygen. History of atrial fibrillation.the patient's rate is controlled and the patient is on long-term anticoagulation with Eliquis. The patient's current heart is still tachycardic and cardiology was informed. Patient remains on metoprolol anticoagulation with Eliquis. The patient was also started on amiodarone and the patient is post-cardioversion History of hypertension. History of heavy tobacco use. History of acute kidney injury, improved and the patient is on a combination of diuretics including Lasix and Aldactone History of alcohol abuse. Metabolic alkalosis, improved with Diamox Plan: cardiac rhythm is sinus Continue metoprolol 75 mg by mouth twice a day and amiodarone 400 mg by mouth twice a day Continue anticoagulation with Eliquis Continue Lasix 40 mg by mouth twice a day and Aldactone Discontinue Diamox BiPAP overnight Creatinine is at 1.3 and this is to be monitored We'll follow , discharged home today
[2022-05-05] MEDS ORDERED: AMIODARONE 200 MG TAB PO SCH (21:00)
--- NOTE | 2022-05-05 23:08 | P.DS ---
Providers Date of admission: 04/27/22 14:34 Attending physician: Callie Pham MD Consults: 04/27/22 14:34 Consult Physician Routine Consulting Provider: Mustapha Olivas Consult Reason/Comments: A. fib with RVR, CHF Do you want consulting provider notified?: Yes 04/28/22 15:50 Consult Physician Routine Consulting Provider: Cj Carroll Consult Reason/Comments: copd Do you want consulting provider notified?: Yes Primary care physician: Milton Arias Hospital Course: Final Diagnosis -Acute exacerbation CHF, acute on chronic with mildly to moderately impaired systolic function -Chronic obstructive pulmonary disease, acute exacerbation -Acute hypoxic respiratory failure secondary to a component of CHF and COPD exacerbation -Atrial fibrillation with RVR post cardioversion currently rate controlled -Acute kidney injury most likely secondary to diuretics and Aldactone use, improving -Hypertension -Peripheral neuropathy Discharge Disposition Patient is stable for discharge. Cleared by cardiology and pulmonary services. He is status post cardioversion and maintaining sinus mechanism. Patient has been started on Farxiga for blood glucose control. Diamox has been discontinued. Betablocker has been changed to Toprol XL 75 mg TID. He has also been started on formoterol by pulmonary, he is discharging on oral steroid taper. Completed 5 day course of antibiotic therapy for positive sputum culture with Morjennyferilla Catarra. Recommend to follow up with Dr Arias in 1 to 2 days on discharge. Patient is also recommended to follow up with Dr Yanez, Dr Olivas and also Dr. Carroll. Hospital Course This is a 51-year-old male, history of hypertension, COPD, atrial fibrillation, presenting to the emergency department with concerns with difficulty in breathing. Symptoms have progressively the past couple of days. Patient was in the hospital a couple weeks ago with congestive heart failure and atrial fibrillation he is anticoagulated with eliquis. Patient does have history of COPD however that is not similar to this. Patient does have cough with occasional estrella sputum. No fevers. Patient does have some edema still. Initial chest xray showing interstitial edema and he was found to be in atrial fibrillation with rapid ventricular rate on admission. Presents with potassium of 3.3., sodium 136, white count of 11 and platelet count of 110. Kidney function stable. He was started on IV lasix and IV cardizem. He was able to transition to oral diuretics and oral metoprolol. He was also started on IV steroids for COPD exacerbation. He did require oxygen support and continues with cough and shortness of breath. Sputum culture showing moraxilla catarra with pulmonary following and patient was treated with zithromax for a 5 day course of therapy. Heart rate was difficult to control in addition to beta priscilla which was increased patient was started on amiodarone and continues to experience rapid ventricular and underwent cardioversion on 05/04/2022. Patient maintained sinus mechanism overnight and overall reports improvement in symptoms. 05/05/2022 Patient evaluated today sitting up in bed. He has maintained sinus mechanism overnight he is status post cardioversion. Anticoagulated with eliquis. Amiodarone has been decreased today to 200 mg PO BID to continue until follow up with cardiology. Patient is also recommended to follow up with pulmonary services. Currently maintaining oxygen saturations on room air. He has been cleared by pulmonary and cardiology services today. He denies chest pain, no palpitations, no shortness of breath at rest. Currently with no leg swelling states he did have some yesterday. Otherwise no acute events overnight. He is maintained on albuterol and has been started on formoteral BID and will discharge on oral steroid taper as well. Sodium today 135, potassium 4.1, BUN 42, creatinine 1.21, glucose is 134. Blood pressure today 102/64, heart rate 81, afebrile, 96% on room air. Please see medication reconciliation for list of current medications. Thank you for allowing us to participate in the care of this patient. The impression and plan of care has been dictated by Barb Mclaughlin, Nurse Practitioner as directed. Dr. Nadine MD I have performed a history and physical examination and medical decision making of this patient, discussed the same with the dictator, and agree with the dictators assessment and plan as written, documented as a scribe. Based on total visit time, I have performed more than 50% of this visit. Patient Condition at Discharge: Stable Plan - Discharge Summary Discharge Rx Participant: Yes New Discharge Prescriptions: New Dapagliflozin Propanediol [Farxiga] 10 mg PO DAILY #30 tab guaiFENesin SYRUP 100MG/5ML [Robitussin] 200 mg PO Q6HR PRN ml PRN Reason: Cough lisinopriL [Zestril] 2.5 mg PO BID #60 tab Metoprolol Succinate (ER) [Toprol Xl] 75 mg PO BID 30 Days #180 tab Spironolactone [Aldactone] 25 mg PO DAILY #30 tab Amiodarone [Cordarone] 200 mg PO BID #60 tab predniSONE [Deltasone] 40 mg PO DAILY 13 Days #14 tab Formoterol Fumarate [Perforomist] 20 mcg INHALATION RT-BID #1 each Continue Pregabalin [Lyrica] 100 mg PO BID Nicotine 21Mg/24Hr Patch [Habitrol] 1 patch TRANSDERM DAILY Famotidine [Pepcid] 20 mg PO BID Ipratropium-Albuterol Nebulize [Duoneb 0.5 mg-3 mg/3 ml Soln] 3 ml INHALATION RT-Q6H Apixaban [Eliquis] 5 mg PO BID #60 tab Budesonide [Pulmicort] 0.5 mg INHALATION RT-BID LORazepam [Ativan] 0.5 mg PO Q6HR PRN PRN Reason: Anxiety Potassium Chloride ER [K-Dur 10] 10 meq PO DAILY #30 tab Furosemide [Lasix] 40 mg PO BID@0900,1600 #60 tab Albuterol Sulfate [Ventolin HFA] 2 puff INHALATION RT-Q4H PRN PRN Reason: Shortness Of Breath Melatonin 5 mg PO HS Discontinued predniSONE See Taper PO DIRECTED metOLazone [Zaroxolyn] 10 mg PO DAILY Metoprolol Tartrate [Lopressor] 100 mg PO TID acetaZOLAMIDE [Diamox] 250 mg PO BID Chlorthalidone [Hygroton] 25 mg PO DAILY Metoclopramide [Reglan] 10 mg PO Q6HR PRN PRN Reason: Nausea Discharge Medication List Famotidine [Pepcid] 20 mg PO BID 04/11/22 [History] Ipratropium-Albuterol Nebulize [Duoneb 0.5 mg-3 mg/3 ml Soln] 3 ml INHALATION RT-Q6H 04/11/22 [History] Nicotine 21Mg/24Hr Patch [Habitrol] 1 patch TRANSDERM DAILY 04/11/22 [History] Pregabalin [Lyrica] 100 mg PO BID 04/11/22 [History] Apixaban [Eliquis] 5 mg PO BID #60 tab 04/13/22 [Rx] Furosemide [Lasix] 40 mg PO BID@0900,1600 #60 tab 04/16/22 [Rx] Potassium Chloride ER [K-Dur 10] 10 meq PO DAILY #30 tab 04/16/22 [Rx] Albuterol Sulfate [Ventolin HFA] 2 puff INHALATION RT-Q4H PRN 04/27/22 [History] Budesonide [Pulmicort] 0.5 mg INHALATION RT-BID 04/27/22 [History] LORazepam [Ativan] 0.5 mg PO Q6HR PRN 04/28/22 [History] Melatonin 5 mg PO HS 04/28/22 [History] Amiodarone [Cordarone] 200 mg PO BID #60 tab 05/05/22 [Rx] Dapagliflozin Propanediol [Farxiga] 10 mg PO DAILY #30 tab 05/05/22 [Rx] Formoterol Fumarate [Perforomist] 20 mcg INHALATION RT-BID #1 each 05/05/22 [Rx] Metoprolol Succinate (ER) [Toprol Xl] 75 mg PO BID 30 Days #180 tab 05/05/22 [Rx] Spironolactone [Aldactone] 25 mg PO DAILY #30 tab 05/05/22 [Rx] guaiFENesin SYRUP 100MG/5ML [Robitussin] 200 mg PO Q6HR PRN ml 05/05/22 [Rx] lisinopriL [Zestril] 2.5 mg PO BID #60 tab 05/05/22 [Rx] predniSONE [Deltasone] 40 mg PO DAILY 13 Days #14 tab 05/05/22 [Rx] Follow up Appointment(s)/Referral(s): Milton Arias MD [Primary Care Provider] - 1-2 days Kurt Yanez MD [STAFF PHYSICIAN] - 2 Weeks Cj Carroll DO [Doctor of Osteopathic Medicine] - 1 Week Mustapha Olivas MD [STAFF PHYSICIAN] - 1 Week Ambulatory/Diagnostic Orders: Basic Metabolic Panel [LAB.AMB] Time Frame: 3 Days, Location: None Selected Patient Instructions/Handouts: A-fib (Atrial Fibrillation) (DC), Cardioversion (DC) Activity/Diet/Wound Care/Special Instructions: Follow up with Dr. Arias in 1 to 2 days Repeat labs in 2 to 3 days Recommend to follow up with pulmonary services and cardiology on discharge Continue oral steroid taper Continue inhalers as prescribed Discharge Disposition: HOME SELF-CARE
== END 2022-05-05 14:57 | disposition home or self-care (01) | DRG 291 ==
LOC: EC 13:01 → 3SCARD 14:34
PROVIDERS: ADMIT Internal Medicine; ATTEND Internal Medicine
PROC: 5A09357 Assistance with Respiratory Ventilation, Less than 24 Consecutive Hours, Continuous Positive Airway Pressure (ICD-10-PCS; 2022-04-28)
PROC: 5A2204Z Restoration of Cardiac Rhythm, Single (ICD-10-PCS; principal; 2022-05-04 09:30)
DX: I11.0 Hypertensive heart disease with heart failure (principal); I50.23 Acute on chronic systolic (congestive) heart failure; J96.01 Acute respiratory failure with hypoxia; E87.3 Alkalosis; N17.9 Acute kidney failure, unspecified; I48.92 Unspecified atrial flutter; J44.1 Chronic obstructive pulmonary disease with (acute) exacerbation; I95.9 Hypotension, unspecified; F10.11 Alcohol abuse, in remission; I48.0 Paroxysmal atrial fibrillation; E66.01 Morbid (severe) obesity due to excess calories; F17.200 Nicotine dependence, unspecified, uncomplicated; G62.9 Polyneuropathy, unspecified; I42.8 Other cardiomyopathies; T50.2X5A Adverse effect of carbonic-anhydrase inhibitors, benzothiadiazides and other diuretics, initial encounter; T50.0X5A Adverse effect of mineralocorticoids and their antagonists, initial encounter; Z68.35 Body mass index [BMI] 35.0-35.9, adult; Z79.01 Long term (current) use of anticoagulants; Z79.899 Other long term (current) drug therapy
CPT/HCPCS: 36415; 71046; 80048; 80053; 83735; 83880; 84439; 84443; 84481; 84484; 85025; 85610; 85730; 87070; 87205; 92960; 93005; 94640; 94660; 94760; 96365; 96366; 96375; 96376; 99291

== ENCOUNTER 2022-06-19 10:01 | Day surgery (SDC) | payer OTHER ==
[2022-06-19] MEDS ORDERED: SODIUM CHLORIDE 0.9% 1,000 ML IV ONE ×2 (10:28→14:55)
[2022-06-19 10:34] LABS: Anisocytosis Moderate; Basophils # (A) 0.1 k/uL (0-0.2); Basophils % (A) 1 %; Eosinophils # (A) 0.3 k/uL (0-0.7); Eosinophils % (A) 2 %; HCT 37.3 % (39.0-53.0); HGB 12.8 gm/dL (13.0-17.5); Lymphocytes # (A) 2.6 k/uL (1.0-4.8); Lymphocytes % (A) 19 %; MCH 27.2 pg (25.0-35.0); MCHC 34.2 g/dL (31.0-37.0); MCV 79.5 fL (80.0-100.0); Mean Platelet Volume 9.3; Microcytosis Moderate; Monocytes # (A) 0.9 k/uL (0-1.0); Monocytes % (A) 7 %; Neutrophils # (A) 9.5 k/uL (1.3-7.7); Neutrophils % (A) 68 %; Platelet Count 178 k/uL (150-450); Poikilocytosis Slight; RBC 4.69 m/uL (4.30-5.90); RDW 23.4 % (11.5-15.5); WBC 13.8 k/uL (3.8-10.6)
[2022-06-19] MEDS ORDERED: ePHEDrine 50 MG/ML 1 ML VIAL ONE (11:42)
[2022-06-19] MEDS ORDERED: PHENYLEPHRINE-0.9% NACL SYG 1,000 MCG/10 ML SYRINGE ONE (11:42)
[2022-06-19] MEDS ORDERED: MIDAZOLAM 2 MG/2 ML VIAL ONE (11:42)
[2022-06-19] MEDS ORDERED: fentaNYL (PF) 50 MCG/ML 2 ML AMP ONE (11:42)
[2022-06-19] MEDS ORDERED: ISOPROTERENOL 250 MCG/1.25 ML SYR IV ONE (11:42)
[2022-06-19] MEDS ORDERED: ROCURONIUM 10 MG/ML (5 ML VIAL) IV ONE (11:42)
[2022-06-19] MEDS ORDERED: PROPOFOL 10 MG/ML 20 ML VIAL IV ONE (11:42)
[2022-06-19] MEDS ORDERED: GLYCOPYRROLATE 0.2 MG/ML 2 ML VIAL ONE (11:42)
[2022-06-19] MEDS ORDERED: SUGAMMADEX SODIUM 200 MG/2 ML SDV IV ONE (11:42)
[2022-06-19] MEDS ORDERED: LIDOCAINE 2% INJ 20 MG/ML (2 ML VIAL) ONE (11:42)
[2022-06-19] MEDS ORDERED: NEOSTIGMINE 1 MG/ML 10 ML VIAL ONE (11:42)
[2022-06-19] MEDS ORDERED: VASOPRESSIN 20 UNIT/ML 1 ML VIAL ONE (11:42)
[2022-06-19] MEDS ORDERED: LIDOCAINE 1% INJ 10MG/ML (30 ML VIAL-PF) SQ ONE (12:31)
[2022-06-19] MEDS ORDERED: HEPARIN SODIUM (1,000 UNIT/ML) 1,000 UNIT in SODIUM CHLORIDE 0.9% 1,000 ML IRRIGATION ONE (12:38)
[2022-06-19] MEDS ORDERED: ACETAMINOPHEN TAB 325 MG TAB PO PRN (14:38)
[2022-06-19] MEDS ORDERED: ACETAMINOPHEN IV (For NPO) 1,000 MG in EMPTY BAG 1 BAG IVPB ONE (14:38)
--- NOTE | 2022-06-19 14:50 | P.HPCAR ---
History of Present Illness This is Dr. Avila dictating an H/P on this patient The patient was interviewed and examined IMPRESSION / ASSESSMENT: Recurrent paroxysmal atrial flutter with RVR associated with shortness of breath Failed amiodarone and electrical cardioversion History of persistent atrial fibrillation symptomatic, in the past PLAN: Proceed with EP study and efficacy ablation for typical atrial flutter Patient is intolerant of amiodarone and would like to stop it Continue ELIQUIS HPI Patient has had atrial flutter with RVR. He is very short of breath with these episodes His left ejection fraction shortness yes is 45% during atrial flutter He is also intolerant of amiodarone and would like to stop it He is a little bit of cough with expectoration but no nausea vomiting or diarrhea No undue shortness of breath today vitals No recent syncope ROS: No fever chills or rigors, no cough, phlegm or expectoration, no nausea, vomiting or diarrhea, no hematuria, dysuria, no musculoskeletal complaints, no strokes or seizures, no skin lesions. EXAMINATION: 124/65 his mercury afebrile heart rate 70s Breath sounds are clear no rhonchi no crackles Heart sounds are regular no murmurs no gallops No JVD No lower extremity edema REVIEW OF LABS, ECG & MEDICAL DATA White count 13.8 thousand Hemoglobin 12.8 thousand Platelet count 178,000 Physical Exam Vitals: Vital Signs Temp Pulse Pulse Resp BP Pulse Ox 06/19/22 14:37 68 16 91/56 99 06/19/22 14:22 71 16 90/51 100 06/19/22 14:07 97.1 F L 77 14 96/53 96 06/19/22 10:24 98.2 F 67 16 124/65 99 Intake and Output 06/18/22 06/19/22 06/19/22 22:59 06:59 14:59 Intake Total 1150 Balance 1150 Intake: IV 1150 Other: Weight 110.9 kg Past Medical History Past Medical History: Atrial Fibrillation, COPD, Diabetes Mellitus, GERD/Reflux, Hypertension, Myocardial Infarction (DE) Additional Past Medical History / Comment(s): questionable sleep apnea per See dr Avila's H & P Last Myocardial Infarction Date:: unk History of Any Multi-Drug Resistant Organisms: None Reported Past Surgical History: Unable to Obtain Additional Past Surgical History / Comment(s): RICKY 04-11-2022 Past Anesthesia/Blood Transfusion Reactions: No Reported Reaction Smoking Status: Former smoker - Past Family History Mother Family Medical History: Dementia Father Family Medical History: Cancer Physical Examination Vital Signs Temp Pulse Pulse Resp BP Pulse Ox 06/19/22 14:37 68 16 91/56 99 06/19/22 14:22 71 16 90/51 100 06/19/22 14:07 97.1 F L 77 14 96/53 96 06/19/22 10:24 98.2 F 67 16 124/65 99 Intake and Output 06/18/22 06/19/22 06/19/22 22:59 06:59 14:59 Intake Total 1150 Balance 1150 Intake: IV 1150 Other: Weight 110.9 kg Results 06/19/22 10:15 CBC 06/19/22 Range/Units 10:15 WBC 13.8 H (3.8-10.6) k/uL RBC 4.69 (4.30-5.90) m/uL Hgb 12.8 L (13.0-17.5) gm/dL Hct 37.3 L (39.0-53.0) % Plt Count 178 (150-450) k/uL Current Medications Generic Name Dose Route Start Last Admin Trade Name Freq PRN Reason Stop Dose Admin Acetaminophen 650 mg 06/19/22 14:38 Acetaminophen Tab 325 Mg Tab PO Q6HR PRN Mild Pain (Scale 1 to 3) Hydrocodone Bitart/Acetaminophen 1 each 06/19/22 14:38 Hydrocodone/Apap 5-325mg 1 Each Tab PO Q4HR PRN Moderate Pain (Scale 4 to 6) Albuterol/Ipratropium 3 ml 06/19/22 20:00 Ipratropium-Albuterol 3 Ml Neb INHALATION RT-Q6H ANÍBAL Apixaban 5 mg 06/19/22 21:00 Apixaban 5 Mg Tab PO BID ANÍBAL Protocol Dapagliflozin 10 mg 06/20/22 09:00 Dapagliflozin Propanediol 10 Mg Tablet PO DAILY ANÍBAL Famotidine 20 mg 06/19/22 21:00 Famotidine 20 Mg Tab PO BID ANÍBAL Formoterol Fumarate 20 mcg 06/19/22 20:00 Formoterol Fumarate 20 Mcg/2 Ml Nebu INHALATION RT-BID ANÍBAL Furosemide 40 mg 06/19/22 16:00 Furosemide 40 Mg Tab PO BID@0900,1600 ANÍBAL Sodium Chloride 1,000 mls @ 20 mls/hr 06/19/22 06:17 Saline 0.9% IV 07/19/22 06:18 .Q24H ANÍBAL Acetaminophen 1,000 mg/ IV 100 mls @ 400 mls/hr 06/19/22 14:38 Solution IVPB 06/19/22 14:52 ONCE ONE Lisinopril 2.5 mg 06/19/22 21:00 Lisinopril 2.5 Mg Tab PO BID ANÍBAL Metoprolol Succinate 75 mg 06/19/22 21:00 Metoprolol Succinate (Er) 25 Mg Tab.Er.24h PO BID ANÍBAL Sodium Chloride 12 ml 06/19/22 14:38 Sodium Chloride 0.9% Flush 10 Ml Syringe IV Q12HR PRN Line Flush Spironolactone 25 mg 06/20/22 09:00 Spironolactone 25 Mg Tab PO DAILY ANÍBAL Intake and Output 06/18/22 06/19/22 06/19/22 22:59 06:59 14:59 Intake Total 1150 Balance 1150 Intake: IV 1150 Other: Weight 110.9 kg Patient Weight 06/20/22 06:59 Weight 110.9 kg 06/19/22 10:15
[2022-06-19] MEDS ORDERED: ACETAMINOPHEN IV (For NPO) 1,000 MG/100 ML VIAL IVPB ONE (14:54)
--- NOTE | 2022-06-19 14:58 | P.EPPROC ---
- EP Procedure Note Electrophysiology Procedure Note: Diagnosis Symptomatic typical atrial flutter, recurrent Results Successful ablation for typical atrial flutter Bidirectional block across the cavo tricuspid isthmus with differential pacing Plan Stop amiodarone Continue ELIQUIS Details Patient was brought to the EP lab in a fasting state. Written informed consent was obtained prior to the procedure. General anesthesia provided. Venous accesses were obtained via the femoral veins. Diagnostic mapping and ablation cath was replaced. Intracardiac echo catheter was placed Baseline measurements Sinus cycle length 998 ms, ME interval 172 ms, QRS 112 ms and QT 470 ms AH 95 ms and HV 39 ms Sinus node recovery times at 600 and 500 ms were 1290 and 1335 ms Sinus node recovery times at pacing cycle length of 400 ms was 1365 Corrected sinus node recovery times were normal AV node Wenckebach block 390 ms High-dose Isuprel started No inducible arrhythmias on Isuprel with atrial extra stimulation AV node Wenckebach block improved to 280 ms Intracardiac echo was performed. Mild thickening of the pericardium was noted around the LV without any effusion No left atrial appendage thrombus, enlarged left atrium Cavo tricuspid isthmus was short with a soft tricuspid pouch with thick trabeculations Cavo tricuspid isthmus defined with intracardiac echo. Tricuspid annulus and eustachian ridge defined Catheter mapping performed across the cavo tricuspid isthmus during ablation, with pacing from the Danny sinus os and the lower lateral right atrium A complete anatomic RF line of block was made and these points were tagged This was interrogated with differential pacing and with split potentials across the line during pacing maneuvers Bidirectional block confirmed Long split potentials confirmed, 108 ms Catheters were removed. Venous accesses secured and closed with Vascade device Patient transferred to the procedure well without any acute complications
[2022-06-19] MEDS: SODIUM CHLORIDE 0.9% 1,000 ML IV SCH (17:02)
[2022-06-19] MEDS: HYDROcodone/APAP 5-325MG 1 EACH TAB PO PRN ×2 (17:17→21:13)
[2022-06-19] MEDS: FUROSEMIDE 40 MG TAB PO SCH ×2 (17:17→17:25)
[2022-06-19] MEDS: FORMOTEROL FUMARATE 20 MCG/2 ML NEBU INHALATION SCH (20:06)
[2022-06-19] MEDS: IPRATROPIUM-ALBUTEROL 3 ML NEB INHALATION SCH (20:06)
[2022-06-19] MEDS ORDERED: METOPROLOL SUCCINATE (ER) 25 MG TAB.ER.24H PO SCH (21:00)
[2022-06-19] MEDS: FAMOTIDINE 20 MG TAB PO SCH (21:08)
[2022-06-19] MEDS: APIXABAN 5 MG TAB PO SCH (21:08)
[2022-06-20] MEDS: IPRATROPIUM-ALBUTEROL 3 ML NEB INHALATION SCH ×2 (03:40→08:01)
[2022-06-20] MEDS: SODIUM CHLORIDE 0.9% 1,000 ML IV SCH (06:08)
[2022-06-20 07:52] VITALS: BP 89/58; RESP 19; TEMP 97.9
[2022-06-20] MEDS: FORMOTEROL FUMARATE 20 MCG/2 ML NEBU INHALATION SCH (08:01)
[2022-06-20] MEDS: APIXABAN 5 MG TAB PO SCH (08:51)
[2022-06-20] MEDS: FAMOTIDINE 20 MG TAB PO SCH (08:51)
[2022-06-20] MEDS: FUROSEMIDE 40 MG TAB PO SCH (08:53)
[2022-06-20] MEDS ORDERED: SPIRONOLACTONE 25 MG TAB PO SCH (09:00)
[2022-06-20] MEDS ORDERED: METOPROLOL SUCCINATE (ER) 50 MG TAB.ER.24H PO SCH (09:00)
[2022-06-20] MEDS ORDERED: DAPAGLIFLOZIN PROPANEDIOL 10 MG TABLET PO SCH (09:00)
[2022-06-20 09:26] VITALS: PULSE 80
--- NOTE | 2022-06-20 20:52 | P.DS ---
Providers Attending physician: Devonte Avila Primary care physician: Milton Arias [facility] Course: Patient is doing well. No chest discomfort dizziness lightheadedness palpitations Plans are healing well no hematoma or swelling On examination Pulse rate in the 60s blood pressure 90/58 mmHg Asymptomatic Ambulating around the room line heart sounds are normal normal S1 normal S2 no murmurs gallop or rub Breath sounds are clear no rhonchi no crackles Groins. There is no hematoma no swelling Impression Typical atrial flutter status post successful ablation Plan discharge home today Continue anticoagulation Stop amiodarone Reduce the dose of lisinopril to 2.5 mg once daily Reduce the dose of metoprolol 50 mrem twice daily and continue anticoagulation Follow-up with utility pipe layer in a week Plan - Discharge Summary Discharge Rx Participant: No New Discharge Prescriptions: Discontinued Amiodarone [Cordarone] 200 mg PO DAILY No Action Nicotine 21Mg/24Hr Patch [Habitrol] 1 patch TRANSDERM DAILY Famotidine [Pepcid] 20 mg PO BID Ipratropium-Albuterol Nebulize [Duoneb 0.5 mg-3 mg/3 ml Soln] 3 ml INHALATION RT-Q6H Apixaban [Eliquis] 5 mg PO BID #60 tab Budesonide [Pulmicort] 0.5 mg INHALATION RT-BID Dapagliflozin Propanediol [Farxiga] 10 mg PO DAILY #30 tab lisinopriL [Zestril] 2.5 mg PO BID #60 tab Metoprolol Succinate (ER) [Toprol Xl] 75 mg PO BID 30 Days #180 tab Furosemide [Lasix] 40 mg PO BID@0900,1600 #60 tab Albuterol Sulfate [Ventolin HFA] 2 puff INHALATION RT-Q4H PRN PRN Reason: Shortness Of Breath Melatonin 5 mg PO HS Spironolactone [Aldactone] 25 mg PO DAILY #30 tab Formoterol Fumarate [Perforomist] 20 mcg INHALATION RT-BID #1 each Discharge Medication List Famotidine [Pepcid] 20 mg PO BID 04/11/22 [History] Ipratropium-Albuterol Nebulize [Duoneb 0.5 mg-3 mg/3 ml Soln] 3 ml INHALATION RT-Q6H 04/11/22 [History] Nicotine 21Mg/24Hr Patch [Habitrol] 1 patch TRANSDERM DAILY 04/11/22 [History] Apixaban [Eliquis] 5 mg PO BID #60 tab 04/13/22 [Rx] Furosemide [Lasix] 40 mg PO BID@0900,1600 #60 tab 04/16/22 [Rx] Albuterol Sulfate [Ventolin HFA] 2 puff INHALATION RT-Q4H PRN 04/27/22 [History] Budesonide [Pulmicort] 0.5 mg INHALATION RT-BID 04/27/22 [History] Melatonin 5 mg PO HS 04/28/22 [History] Dapagliflozin Propanediol [Farxiga] 10 mg PO DAILY #30 tab 05/05/22 [Rx] Formoterol Fumarate [Perforomist] 20 mcg INHALATION RT-BID #1 each 05/05/22 [Rx] Metoprolol Succinate (ER) [Toprol Xl] 75 mg PO BID 30 Days #180 tab 05/05/22 [Rx] Spironolactone [Aldactone] 25 mg PO DAILY #30 tab 05/05/22 [Rx] lisinopriL [Zestril] 2.5 mg PO BID #60 tab 05/05/22 [Rx] Follow up Appointment(s)/Referral(s): Mustapha Olivas MD [STAFF PHYSICIAN] - 07/03/22 2:30 pm (Appointment already made for 07/03/[address] Cuba ) Patient Instructions/Handouts: Cardiac Ablation (GEN) Activity/Diet/Wound Care/Special Instructions: Post EP study - Ablation instructions 1. Keep access sites dry for 2 days. 2. No heavy lifting or straining for 2 days. 3. Avoid bending the hips repeatedly for 2 days. 4. You may go up and down stairs slowly Call if the following is noted 1. Bleeding, increasing swelling or pain at the access sites. 2. Increasing chest discomfort, especially upon taking a deep breath. 3. Increasing shortness of breath, at rest or with exertion. 4. Undue cough / phlegm 5. Difficulty or pain while swallowing. 6. Pain or change in color in the extremities. 7. Fever, chills, rigors. 8. Increasing headache or neurologic symptoms. 9. Dizziness, fainting, palpitations Stop amiodarone Follow-up with Dr. Donovan in 1 week Metoprolol/toprol xl 50mg twice a day dose decreased Zestril 2.5mg Daily dose decreased Discharge Disposition: HOME SELF-CARE
== END 2022-06-20 10:31 | disposition home or self-care (01) ==
LOC: CATHEP 10:01 → 6NMEDSUR 13:42 → CATHEP 06-20 10:31
PROVIDERS: ATTEND Internal Medicine Clinical Cardiac Electrophysiology
DX: I48.3 Typical atrial flutter (principal); Z79.01 Long term (current) use of anticoagulants; I45.10 Unspecified right bundle-branch block; I48.19 Other persistent atrial fibrillation; J44.9 Chronic obstructive pulmonary disease, unspecified; E11.9 Type 2 diabetes mellitus without complications; I25.2 Old myocardial infarction; K21.9 Gastro-esophageal reflux disease without esophagitis; I10 Essential (primary) hypertension; Z87.891 Personal history of nicotine dependence; Z81.8 Family history of other mental and behavioral disorders; Z79.899 Other long term (current) drug therapy; Z79.51 Long term (current) use of inhaled steroids; Z79.84 Long term (current) use of oral hypoglycemic drugs
CPT/HCPCS: 94640 ×4; 93623; 93662; 93653; 85025; C1759; C1894; C1769 ×2; C1760; C1730; C1893; C1732; J2250; J2710; J2001 ×2; J3010; J1644; J0131; J2370; J2704